=== PATIENT | male | born 1945 | race Caucasian/White ===

== ENCOUNTER 2017-05-22 23:58 | Inpatient (IN) | payer MEDICARE, OTHER ==
[2017-05-23] MEDS ORDERED: Furosemide 40 MG/4 ML VIAL IVPUSH ONE (00:19)
[2017-05-23 00:54] LABS: CHLORIDE,CL 102 mmol/L (101-111); SODIUM,NA 136 mmol/L (135-145)
--- NOTE | 2017-05-23 01:18 | EDM.PDOC ---
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 Has had some mild worsening over past few days per , tonight worsening after getting up out of lift chair. Has had similar episodes in past. No chest pain. Prior cardiac hx. Diabetic. BKA right. AICD/Pacer/ No recent cough, no fever, no nausea or vomiting. Onset: Sudden, Gradual - Related Data Allergies Allergy/AdvReac Type Severity Reaction Status Date / Time No Known Allergies Allergy Verified 01/15/15 15:36 Home Meds: Home Meds Aspirin [Low Dose Aspirin EC] 81 mg PO DAILY 03/12/14 [History] Carvedilol 6.25 mg PO BIDMEALS 03/12/14 [History] Cyanocobalamin (Vitamin B-12) [Vitamin B-12] 2,500 mcg SL DAILY 03/12/14 [ History] Finasteride 5 mg PO DAILY 03/12/14 [History] Lisinopril [Prinivil] 20 mg PO DAILY 03/12/14 [History] Tamsulosin HCl 0.4 mg PO DAILY 03/12/14 [History] Ferrous Sulfate [Iron] 325 mg PO DAILY 06/16/14 [History] atorvaSTATin [Lipitor] 10 mg PO DAILY 06/16/14 [History] Docusate Sodium [Colace] 100 mg PO BID PRN 02/21/15 [History] Sennosides/Docusate Sodium [Senokot-S Tablet] 2 tab PO BID 02/21/15 [History] traMADol [Ultram] 50 mg PO Q6H PRN #30 tablet 03/16/15 [Rx] metFORMIN [Glucophage] 1,000 mg PO BIDMEALS 05/23/17 [History] Past Medical History Cardiovascular History: Reports: Heart Failure, Hypertension, Other (See Below) Other Cardiovascular History: Heart Attack Gastrointestinal History: Reports: Hiatal Hernia Genitourinary History: Reports: BPH, Renal Calculus Other Musculoskeletal History: right below the knee amputation Neurological History: Reports: CVA Endocrine/Metabolic History: Reports: Diabetes, Type II Social & Family History - Tobacco Use Smoking Status *Q: Never Smoker Years of Tobacco use: 25 Second Hand Smoke Exposure: No - Caffeine Use Caffeine Use: Reports: Soda - Alcohol Use Days Per Week of Alcohol Use: 0 - Recreational Drug Use Recreational Drug Use: No - Living Situation & Occupation Living situation: Reports: , with Spouse Occupation: Retired ED ROS GENERAL - Review of Systems Review Of Systems: See Below Constitutional: Denies: Fever, Chills, Weakness, Decreased Appetite HEENT: Reports: No Symptoms Respiratory: Reports: No Symptoms, Shortness of Breath, Wheezing. Denies: Cough , Sputum Cardiovascular: Reports: Dyspnea on Exertion, Edema. Denies: Chest Pain, Palpitations Endocrine: Reports: No Symptoms GI/Abdominal: Reports: No Symptoms. Denies: Difficulty Swallowing : Reports: No Symptoms Musculoskeletal: Reports: Other (right bka ) Skin: Reports: No Symptoms ED EXAM, GENERAL - Physical Exam Exam: See Below Exam Limited By: No Limitations General Appearance: Alert, Mild Distress Eye Exam: Bilateral Eye: EOMI Ears: Normal External Exam Nose: Normal Inspection Throat/Mouth: Normal Inspection Head: Atraumatic Neck: Full Range of Motion Respiratory/Chest: Rhonchi, Wheezing (through out) Cardiovascular: Normal Peripheral Pulses, Regular Rate, Rhythm. No: No Edema (3 +left lower) GI/Abdominal: Normal Bowel Sounds Back Exam: Normal Inspection Neurological: Alert, Oriented, Normal Cognition Psychiatric: Normal Affect Skin Exam: Warm, Dry, Pallor. No: Normal Color Course - Vital Signs Last Recorded V/S: Last Vital Signs Temp 97.6 F 05/23/17 00:22 Pulse 74 05/23/17 00:22 Resp 23 H 05/23/17 00:22 BP 146/86 H 05/23/17 00:22 Pulse Ox 100 05/23/17 00:22 - Orders/Labs/Meds Orders: Active Orders 24 hr Category Date Time Status EKG 12 Lead [EKG Documentation Completion] [RC] URGENT Care 05/23/17 01:20 Active CULTURE BLOOD [BC] Stat Lab 05/23/17 00:20 Received CULTURE BLOOD [BC] Stat Lab 05/23/17 00:25 Received Blood Culture x2 Reflex Set [OM.PC] Stat Oth 05/23/17 00:56 Ordered Labs: Laboratory Tests 05/23/17 05/23/17 05/23/17 Range/Units 00:20 00:20 00:20 WBC 8.1 (5.0-10.0) 10^3/uL RBC 4.20 L (4.6-6.2) 10^6/uL Hgb 11.2 L (14.0-18.0) g/dL Hct 35.4 L (40.0-54.0) % MCV 84.3 D (80-100) fL MCH 26.7 L (27.0-34.0) pg MCHC 31.6 L (33.0-35.0) g/dL Plt Count 174 (150-450) 10^3/uL Neut % (Auto) 71.3 (42.2-75.2) % Lymph % (Auto) 17.2 L (20.5-50.1) % Parke % (Auto) 9.0 H (2-8) % Eos % (Auto) 2.1 (1.0-3.0) % Baso % (Auto) 0.4 (0.0-1.0) % PT 22.5 H (9.0-12.0) SEC INR 2.2 H (0.9-1.2) Sodium 136 (135-145) mmol/L Potassium 4.6 (3.6-5.0) mmol/L Chloride 102 (101-111) mmol/L Carbon Dioxide 27.0 (21.0-31.0) mmol/L Anion Gap 11.6 BUN 17 (7-18) mg/dL Creatinine 1.1 (0.6-1.3) mg/dL Est Cr Clr Drug Dosing 59.81 mL/min Estimated GFR (MDRD) > 60 BUN/Creatinine Ratio 15.45 Glucose 175 H (74-105) mg/dL Lactic Acid (0.5-2.2) mmol/L Calcium 8.3 L (8.4-10.2) mg/dl Total Bilirubin 0.7 (0.2-1.0) mg/dL AST 21 (10-42) IU/L ALT 17 (10-60) IU/L Alkaline Phosphatase 64 (42-121) IU/L Troponin I 0.03 H* (0.00-0.02) ng/ml B-Natriuretic Peptide 1160 H (0-100) pg/ml Total Protein 7.0 (6.7-8.2) g/dl Albumin 3.3 (3.2-5.5) g/dl Globulin 3.7 Albumin/Globulin Ratio 0.89 Amylase 64 (28-100) U/L Lipase 23 (22-51) U/L 05/23/17 Range/Units 00:20 WBC (5.0-10.0) 10^3/uL RBC (4.6-6.2) 10^6/uL Hgb (14.0-18.0) g/dL Hct (40.0-54.0) % MCV (80-100) fL MCH (27.0-34.0) pg MCHC (33.0-35.0) g/dL Plt Count (150-450) 10^3/uL Neut % (Auto) (42.2-75.2) % Lymph % (Auto) (20.5-50.1) % Parke % (Auto) (2-8) % Eos % (Auto) (1.0-3.0) % Baso % (Auto) (0.0-1.0) % PT (9.0-12.0) SEC INR (0.9-1.2) Sodium (135-145) mmol/L Potassium (3.6-5.0) mmol/L Chloride (101-111) mmol/L Carbon Dioxide (21.0-31.0) mmol/L Anion Gap BUN (7-18) mg/dL Creatinine (0.6-1.3) mg/dL Est Cr Clr Drug Dosing mL/min Estimated GFR (MDRD) BUN/Creatinine Ratio Glucose (74-105) mg/dL Lactic Acid 1.8 (0.5-2.2) mmol/L Calcium (8.4-10.2) mg/dl Total Bilirubin (0.2-1.0) mg/dL AST (10-42) IU/L ALT (10-60) IU/L Alkaline Phosphatase (42-121) IU/L Troponin I (0.00-0.02) ng/ml B-Natriuretic Peptide (0-100) pg/ml Total Protein (6.7-8.2) g/dl Albumin (3.2-5.5) g/dl Globulin Albumin/Globulin Ratio Amylase (28-100) U/L Lipase (22-51) U/L Meds: Medications Discontinued Medications Generic Name Dose Route Start Last Admin Trade Name Jam PRN Reason Stop Dose Admin Furosemide 40 mg 05/23/17 00:19 05/23/17 00:42 Lasix IVPUSH 05/23/17 00:20 40 mg NOW ONE Administration - Radiology Interpretation Free Text/Narrative:: CXR linear and hazy opacitites seen in the lower hemithoraces bilaterally could represent bilateral infiltrates or atelectasis although mild acute pulmonary edema could have this appearance. - Re-Assessments/Exams Free Text/Narrative Re-Assessment/Exam: 05/23/17 01:51 Responding to IV lasix. Breathig easier. lung sounds clearing. Wheeze resolved. Voided x 2. Dr. Yang accepting patient for further management. Tx to nursing unit. Departure - Departure Time of Disposition: 01:54 Disposition: Admitted As Inpatient 64 Condition: Good Clinical Impression: CHF, Congestive heart failure, Chronic anticoagulation Diabetes Qualifiers: Diabetes mellitus type: type 2 Diabetes mellitus complication status: with circulatory complication Diabetes mellitus complication detail: with peripheral angiopathy with gangrene Diabetes mellitus prison insulin use: unspecified prison insulin use status Qualified Code(s): E11.52 - Type 2 diabetes mellitus with diabetic peripheral angiopathy with gangrene Hx of BKA Qualifiers: Laterality: right Qualified Code(s): Z89.511 - Acquired absence of right leg below knee - Discharge Information Forms: ED Department Discharge - My Orders Last 24 Hours: My Active Orders 05/23/17 00:20 CULTURE BLOOD [BC] Stat 05/23/17 00:25 CULTURE BLOOD [BC] Stat 05/23/17 00:56 Blood Culture x2 Reflex Set [OM.PC] Stat 05/23/17 01:20 EKG 12 Lead [EKG Documentation Completion] [RC] URGENT - Assessment/Plan Last 24 Hours: My Active Orders 05/23/17 00:20 CULTURE BLOOD [BC] Stat 05/23/17 00:25 CULTURE BLOOD [BC] Stat 05/23/17 00:56 Blood Culture x2 Reflex Set [OM.PC] Stat 05/23/17 01:20 EKG 12 Lead [EKG Documentation Completion] [RC] URGENT
[2017-05-23] MEDS ORDERED: Acetaminophen 325 MG Tab PO PRN (02:19)
--- NOTE | 2017-05-23 02:37 | PCM.HP ---
H&P History of Present Illness - General Date of Service: 05/23/17 Admit Problem/Dx: Admission Diagnosis/Problem Admission Diagnosis/Problem Shortness of breath Source of Information: Patient History Limitations: Reports: No Limitations - History of Present Illness Initial Comments - Free Text/Narative: Patient is 71 y/o male with PMH including CHF, AICD/Pacer, DM-II, right BKA pesents to the ED this AM with sudden onset of SOB. Was well last night before going to bed. Denies cough, fever, chills. No leg swelling, orthopnea, PND, chest pain, palpitations. No nausea, vomiting or abdominal pain. SOB was associated with wheezing. In the ED his BNP was elevated. SOB and wheezing improved following IV lasix Onset of Symptoms: Reports: Today, Sudden Duration of Symptoms: Reports: Hour(s): Location: Reports: Chest Improves with: Reports: None Worsens with: Reports: Movement Associated Symptoms: Reports: Shortness of Breath - Related Data Allergies/Adverse Reactions: Allergies Allergy/AdvReac Type Severity Reaction Status Date / Time No Known Allergies Allergy Verified 05/23/17 02:04 Home Medications: Home Meds Aspirin [Low Dose Aspirin EC] 81 mg PO DAILY 03/12/14 [History] Carvedilol 12 mg PO BIDMEALS 03/12/14 [History] Cyanocobalamin (Vitamin B-12) [Vitamin B-12] 2,500 mcg SL DAILY 03/12/14 [ History] Finasteride 5 mg PO DAILY 03/12/14 [History] Lisinopril [Prinivil] 20 mg PO DAILY 03/12/14 [History] Tamsulosin HCl 0.4 mg PO BEDTIME 03/12/14 [History] atorvaSTATin [Lipitor] 10 mg PO BEDTIME 06/16/14 [History] Warfarin [Coumadin] 5 mg PO Q48H 05/23/17 [History] Warfarin [Coumadin] 7.5 mg PO Q48H 05/23/17 [History] metFORMIN [Glucophage] 1,000 mg PO BIDMEALS 05/23/17 [History] Past Medical History HEENT History: Reports: Cataract Cardiovascular History: Reports: Heart Failure, High Cholesterol, Hypertension, Other (See Below) Other Cardiovascular History: Heart Attack Gastrointestinal History: Reports: Hiatal Hernia Genitourinary History: Reports: BPH, Renal Calculus Other Musculoskeletal History: right below the knee amputation Neurological History: Reports: CVA Endocrine/Metabolic History: Reports: Diabetes, Type II - Past Surgical History HEENT Surgical History: Reports: Cataract Surgery GI Surgical History: Reports: Appendectomy Social & Family History - Family History Family Medical History: Unobtainable - Tobacco Use Smoking Status *Q: Never Smoker Years of Tobacco use: 25 Second Hand Smoke Exposure: No - Caffeine Use Caffeine Use: Reports: Soda - Alcohol Use Days Per Week of Alcohol Use: 0 - Recreational Drug Use Recreational Drug Use: No - Living Situation & Occupation Living situation: Reports: , with Spouse Occupation: Retired H&P Review of Systems - Review of Systems: Review Of Systems: See Below General: Reports: No Symptoms HEENT: Reports: No Symptoms Pulmonary: Reports: No Symptoms Cardiovascular: Reports: No Symptoms Gastrointestinal: Reports: No Symptoms Genitourinary: Reports: No Symptoms Musculoskeletal: Reports: No Symptoms Skin: Reports: No Symptoms Psychiatric: Reports: No Symptoms Neurological: Reports: No Symptoms Hematologic/Lymphatic: Reports: No Symptoms Immunologic: Reports: No Symptoms Exam - Exam Exam: See Below - Vital Signs Vital Signs: Last Vital Signs Temp 97.6 F 05/23/17 00:22 Pulse 74 05/23/17 00:22 Resp 23 H 05/23/17 00:22 BP 146/86 H 05/23/17 00:22 Pulse Ox 100 05/23/17 00:22 Weight: 210 lb - Exam Quality Assessment: Supplemental Oxygen General: Alert, Oriented, Cooperative, Mild Distress HEENT: PERRLA, Hearing Intact, Mucosa Moist & [place], Nares Patent, Normal Nasal Septum, Posterior Pharynx Clear, Conjunctiva Clear, EOMI, EACs Clear, TMs Clear Neck: Supple, Trachea Midline, 2 Lungs: Clear to Auscultation, Normal Respiratory Effort Cardiovascular: Regular Rate, Regular Rhythm GI/Abdominal Exam: Normal Bowel Sounds, Soft, Non-Tender, No Organomegaly, No Distention, No Abnormal Bruit, No Mass, Pelvis Stable (Male) Exam: No Hernia, Normal Inspection, Normal Prostate, Circumcised Rectal (Males) Exam: Normal Exam, Normal Rectal Tone, Prostate Normal Back Exam: Normal Inspection, Full Range of Motion, NT Extremities: Normal Inspection, Normal Range of Motion, Non-Tender, No Pedal Edema, Normal Capillary Refill Skin: Warm, Dry, Intact Neurological: Cranial Nerves Intact, Reflexes Equal Bilateral Neuro Extensive - Mental Status: Alert, Oriented x3, Normal Mood/Affect, Normal Cognition Neuro Extensive - Motor, Sensory, Reflexes: CN II-XII Intact, Normal Gait, Normal Reflexes Psychiatric: Alert, Normal Affect, Normal Mood - Patient Data Result Diagrams: 05/23/17 00:20 05/23/17 00:20 *Q Meaningful Use (ADM) - VTE *Q VTE Criteria *Q: - Stroke *Q Stroke Criteria *Q: - AMI *Q AMI Criteria *Q: - Problem List (1) SOB (shortness of breath) SNOMED Code(s): 236437833 ICD Code: R06.02 - SHORTNESS OF BREATH Status: Acute Current Visit: Yes (2) CHF, Congestive heart failure SNOMED Code(s): 13019394 ICD Code: I50.9 - HEART FAILURE, UNSPECIFIED Status: Acute Current Visit : Yes (3) Hx of BKA Status: Acute Current Visit: Yes Qualifiers: Laterality: right Qualified Code(s): Z89.511 - Acquired absence of right leg below knee (4) Chronic anticoagulation SNOMED Code(s): 840332112 ICD Code: Z79.01 - SODA DIALYZER (CURRENT) USE OF ANTICOAGULANTS Status: Chronic Current Visit: Yes (5) Diabetes SNOMED Code(s): 35745196 ICD Code: E11.9 - TYPE 2 DIABETES MELLITUS WITHOUT COMPLICATIONS Status: Chronic Priority: High Current Visit: Yes Qualifiers: Diabetes mellitus type: type 2 Diabetes mellitus complication status: with circulatory complication Diabetes mellitus complication detail: with peripheral angiopathy with gangrene Diabetes mellitus long-term insulin use: unspecified long-term insulin use status Qualified Code(s): E11.52 - Type 2 diabetes mellitus with diabetic peripheral angiopathy with gangrene Problem List Initiated/Reviewed/Updated: Yes Orders Last 24hrs: Active Orders 24 hr Category Date Time Status Patient Status [ADT] Routine ADT 05/23/17 02:20 Ordered Antiembolic Devices [RC] .Routine Care 05/23/17 02:25 Ordered Intake and Output [RC] QSHIFT Care 05/23/17 02:22 Ordered Oxygen Therapy [RC] CONTINUOUS Care 05/23/17 02:22 Ordered Pulse Oximetry [RC] CONTINUOUS Care 05/23/17 02:22 Ordered VTE/DVT Education [RC] PER UNIT ROUTINE Care 05/23/17 02:25 Ordered Vital Signs [RC] Q4H Care 05/23/17 02:20 Ordered 2 Gram Sodium Diet [DIET] Diet 05/23/17 Breakfast Ordered Acetaminophen [Tylenol] Med 05/23/17 02:19 Ordered 650 mg PO Q4H PRN Aspirin [Halfprin] Med 05/23/17 09:00 Ordered 81 mg PO DAILY Carvedilol [Coreg] Med 05/23/17 08:00 Ordered 12 mg PO BIDMEALS Cyanocobalamin (Vitamin B-12) [Vitamin B-12] Med 05/23/17 09:00 Ordered 2,500 mcg SL DAILY Finasteride [Proscar] Med 05/23/17 09:00 Ordered 5 mg PO DAILY Lisinopril [Prinivil] Med 05/23/17 09:00 Ordered 20 mg PO DAILY Tamsulosin [Flomax] Med 05/23/17 21:00 Ordered 0.4 mg PO BEDTIME atorvaSTATin [Lipitor] Med 05/23/17 21:00 Ordered 10 mg PO BEDTIME metFORMIN [Glucophage] Med 05/23/17 08:00 Ordered 1,000 mg PO BIDMEALS DVT/VTE Prophylaxis Reflex [OM.PC] Routine Oth 05/23/17 02:19 Ordered Resuscitation Status Routine Resus Stat 05/23/17 02:19 Ordered Assessment/Plan Comment:: # CHF exacerbation -IV lasix 40 bid -Daily weight -I/O -ECHO in the AM -Fluid restriction to 1.2 L a day -Continue Coreg and lisinopril. His BP able to tolerate -Supplemental oxygen prn #DM-II -Resume metformin -Monitor FSG 4x daily #Chronic anemia -Stable h/h -Monitor closely #BPH -Continue home meds #Diet -Cardiac #Code status -DNR
[2017-05-23] MEDS ORDERED: Sodium Chloride 0.9% 10 ML Syringe FLUSH PRN (03:00)
[2017-05-23] MEDS ORDERED: Carvedilol 6.25 MG Tab PO SCH (08:00)
[2017-05-23] MEDS: Aspirin 81 MG Tab.EC PO SCH (08:35)
[2017-05-23] MEDS: metFORMIN 500 MG Tab PO SCH ×2 (08:35→17:19)
[2017-05-23] MEDS: Carvedilol 6.25 MG Tab PO SCH ×2 (08:35→17:18)
[2017-05-23] MEDS: Finasteride 5 MG Tab PO SCH (08:36)
[2017-05-23] MEDS: Furosemide 40 MG/4 ML VIAL IVPUSH SCH ×2 (08:36→21:15)
[2017-05-23] MEDS: Lisinopril 20 MG Tab PO SCH (08:36)
[2017-05-23] MEDS ORDERED: [UNRECOGNIZED DRUG - OTHER] SL SCH (09:00)
[2017-05-23] MEDS ORDERED: CYANOCOBALAMIN 2500 MCG SL SCH (09:00)
--- NOTE | 2017-05-23 10:07 | PCM.PN ---
- General Info Date of Service: 05/23/17 Admission Dx/Problem (Free Text): Admission Diagnosis/Problem Admission Diagnosis/Problem Shortness of breath Subjective Update: The patient is a 71-year-old gentleman with a history of congestive heart failure and AICD, diabetes, right below knee amputation. He has been using home oxygen at night. The patient presented with sudden onset of shortness of breath was associated with wheezing. The patient was noted to have acute congestive heart failure exacerbation and admitted. He received a dose of Lasix in the emergency room after which a breathing has improved. Overnight he has improved. He is off oxygen now. He denies shortness of breath, chest pain. - Review of Systems General: Denies: Fever Pulmonary: Denies: Shortness of Breath Cardiovascular: Denies: Chest Pain Gastrointestinal: Denies: Abdominal Pain - Patient Data Vitals - Most Recent: Last Vital Signs Temp 37.2 C 05/23/17 09:27 Pulse 61 05/23/17 08:35 Resp 16 05/23/17 07:37 BP 141/70 H 05/23/17 08:36 Pulse Ox 95 05/23/17 07:37 Weight - Most Recent: 89.267 kg I&O - Last 24 Hours: Intake & Output 05/22/17 05/23/17 05/23/17 22:59 06:59 14:59 Output Total 250 Balance -250 Lab Results Last 24 Hours: Laboratory Results - last 24 hr 05/23/17 Range/Units 07:58 POC Glucose 138 H (83-110) mg/dl Med Orders - Current: Current Medications Acetaminophen (Tylenol) 650 mg PO Q4H PRN PRN Reason: Pain (mild 1-3 )/fever Aspirin (Halfprin) 81 mg PO DAILY [facility] Last Admin: 05/23/17 08:35 Dose: 81 mg Atorvastatin Calcium (Lipitor) 10 mg PO BEDTIME [facility] Carvedilol (Coreg) 12.5 mg PO BIDMEALS [facility] Last Admin: 05/23/17 08:35 Dose: 12.5 mg Finasteride (Proscar) 5 mg PO DAILY [facility] Last Admin: 05/23/17 08:36 Dose: 5 mg Furosemide (Lasix) 40 mg IVPUSH BID [facility] Last Admin: 05/23/17 08:36 Dose: 40 mg Lisinopril (Prinivil) 20 mg PO DAILY [facility] Last Admin: 05/23/17 08:36 Dose: 20 mg Metformin HCl (Glucophage) 1,000 mg PO BIDMEALS [facility] Last Admin: 05/23/17 08:35 Dose: 1,000 mg Non-Formulary Medication (Cyanocobalamin (Vitamin B-12) [Vitamin B-12]) 2,500 mcg SL DAILY [facility] Sodium Chloride (Saline Flush) 10 ml FLUSH ASDIRECTED PRN PRN Reason: Keep Vein Open Tamsulosin HCl (Flomax) 0.4 mg PO BEDTIME [facility] Warfarin Sodium (Pharmacy To Dose - Warfarin) 1 dose .XX ASDIRECTED [facility] Warfarin Sodium (Coumadin) 7.5 mg PO ONETIME ONE Stop: 05/23/17 14:01 Discontinued Medications Carvedilol (Coreg) 12 mg PO BIDMEALS [facility] Furosemide (Lasix) 40 mg IVPUSH NOW ONE Stop: 05/23/17 00:20 Last Admin: 05/23/17 00:42 Dose: 40 mg - Exam Quality Assessment: No: Supplemental Oxygen General: Alert, Oriented Neck: Supple Lungs: Clear to Auscultation, Normal Respiratory Effort. No: Rhonchi, Wheezing GI/Abdominal Exam: Normal Bowel Sounds, Soft, Non-Tender Extremities: No Pedal Edema, Other (Right-sided amputation) - Problem List & Annotations (1) CHF, Congestive heart failure SNOMED Code(s): 41945482 Code(s): I50.9 - HEART FAILURE, UNSPECIFIED Status: Acute Current Visit: Yes (2) SOB (shortness of breath) SNOMED Code(s): 205108676 Code(s): R06.02 - SHORTNESS OF BREATH Status: Acute Current Visit: Yes (3) Diabetes SNOMED Code(s): 99565424 Code(s): E11.9 - TYPE 2 DIABETES MELLITUS WITHOUT COMPLICATIONS Status: Chronic Priority: High Current Visit: Yes Qualifiers: Diabetes mellitus type: type 2 Diabetes mellitus complication status: with circulatory complication Diabetes mellitus complication detail: with peripheral angiopathy with gangrene Diabetes mellitus intermediate project manager insulin use: unspecified intermediate project manager insulin use status Qualified Code(s): E11.52 - Type 2 diabetes mellitus with diabetic peripheral angiopathy with gangrene - Problem List Review Problem List Initiated/Reviewed/Updated: Yes - Plan Plan:: # CHF exacerbation Improved Continue with IV lasix -Daily weight -I/O -Continue Coreg and lisinopril. Follow blood pressure -Supplemental oxygen prn #DM-II -Resume metformin -Monitor FSG 4x daily #Chronic anemia -Stable h/h -Monitor closely #BPH -Continue home meds #Diet -Cardiac #Code status -DNR Discussed with and at bedside
[2017-05-23] MEDS ORDERED: Warfarin 2.5 MG Tab PO ONE (14:00)
[2017-05-23] MEDS ORDERED: atorvaSTATin 10 MG Tab PO SCH (21:00)
[2017-05-23] MEDS ORDERED: Tamsulosin 0.4 MG Cap.ER PO SCH (21:00)
[2017-05-24 07:35] VITALS: BP 139/62
[2017-05-24] MEDS: Lisinopril 20 MG Tab PO SCH (08:24)
[2017-05-24] MEDS: metFORMIN 500 MG Tab PO SCH (08:24)
[2017-05-24] MEDS: Finasteride 5 MG Tab PO SCH (08:24)
[2017-05-24] MEDS: Aspirin 81 MG Tab.EC PO SCH (08:24)
[2017-05-24] MEDS: Carvedilol 6.25 MG Tab PO SCH (08:25)
[2017-05-24] MEDS: Furosemide 40 MG/4 ML VIAL IVPUSH SCH (08:27)
--- NOTE | 2017-05-24 10:26 | PCM.DCSUM1 ---
Discharge Summary - Hospital Course Free Text/Narrative:: The patient is a 71-year-old gentleman with a history of diabetes, coronary artery disease, congestive heart failure. Presented with increasing weight, lower extremity edema, shortness of breath. # Acute CHF exacerbation due to systolic dysfunction Improved with IV lasix The patient used to be on diuretics but then was developing orthostatic hypotension and near syncope. He will be following his Daily weight And if the weight is going up he will Take Lasix prn -Continue Coreg and lisinopril. #DM-II -Resume metformin #Chronic anemia -Stable h/h -Monitor as out pt - Discharge Data Discharge Date: 05/24/17 Discharge Disposition: Home, Self-Care 01 Condition: Good - Discharge Diagnosis/Problem(s) (1) CHF, Congestive heart failure SNOMED Code(s): 42047355 ICD Code: I50.9 - HEART FAILURE, UNSPECIFIED Status: Acute Current Visit : Yes (2) SOB (shortness of breath) SNOMED Code(s): 240132914 ICD Code: R06.02 - SHORTNESS OF BREATH Status: Acute Current Visit: Yes (3) Diabetes SNOMED Code(s): 17440541 ICD Code: E11.9 - TYPE 2 DIABETES MELLITUS WITHOUT COMPLICATIONS Status: Chronic Priority: High Current Visit: Yes Qualifiers: Diabetes mellitus type: type 2 Diabetes mellitus complication status: with circulatory complication Diabetes mellitus complication detail: with peripheral angiopathy with gangrene Diabetes mellitus penitentiary insulin use: unspecified predatory animal exterminator insulin use status Qualified Code(s): E11.52 - Type 2 diabetes mellitus with diabetic peripheral angiopathy with gangrene - Patient Instructions Diet: Heart Healthy Diet Activity: As Tolerated - Discharge Plan Prescriptions/Med Rec: Furosemide [Lasix] 20 mg PO DAILY PRN #30 tablet PRN Reason: weight is up by 3# in 3 days Home Medications: Home Meds Aspirin [Low Dose Aspirin EC] 81 mg PO DAILY 03/12/14 [History] Carvedilol 12.5 mg PO BIDMEALS 03/12/14 [History] Cyanocobalamin (Vitamin B-12) [Vitamin B-12] 2,500 mcg SL DAILY 03/12/14 [ History] Finasteride 5 mg PO DAILY 03/12/14 [History] Lisinopril [Prinivil] 20 mg PO DAILY 03/12/14 [History] Tamsulosin HCl 0.4 mg PO BEDTIME 03/12/14 [History] atorvaSTATin [Lipitor] 10 mg PO BEDTIME 06/16/14 [History] Warfarin [Coumadin] 5 mg PO Q48H 05/23/17 [History] Warfarin [Coumadin] 7.5 mg PO Q48H 05/23/17 [History] metFORMIN [Glucophage] 1,000 mg PO BIDMEALS 05/23/17 [History] Furosemide [Lasix] 20 mg PO DAILY PRN #30 tablet 05/24/17 [Rx] Patient Handouts: Furosemide tablets, Heart Failure, [id number] Referrals: PCP,Unobtain [Ordering Only Provider] - (dr. Rasmussen in 2-3 days) - Discharge Summary/Plan Comment DC Time >30 min.: No - General Info Date of Service: 05/24/17 Admission Dx/Problem (Free Text: Admission Diagnosis/Problem Admission Diagnosis/Problem Shortness of breath - Review of Systems General: Denies: Fever, Weakness Pulmonary: Denies: Shortness of Breath Cardiovascular: Denies: Chest Pain, Edema (Resolved) Neurological: Denies: Confusion - Patient Data Vitals - Most Recent: Last Vital Signs Temp 36.8 C 05/24/17 07:31 Pulse 68 05/24/17 08:25 Resp 20 05/24/17 07:31 BP 139/62 05/24/17 08:25 Pulse Ox 95 05/24/17 07:31 Weight - Most Recent: 85.82 kg I&O - Last 24 hours: Intake & Output 05/23/17 05/24/17 05/24/17 22:59 06:59 14:59 Intake Total 450 50 Output Total 500 1350 Balance -50 -1300 Lab Results - Last 24 hrs: Laboratory Results - last 24 hr 05/23/17 05/24/17 05/24/17 Range/Units 17:01 05:35 05:35 WBC 8.3 (5.0-10.0) 10^3/uL RBC 4.13 L (4.6-6.2) 10^6/uL Hgb 11.0 L (14.0-18.0) g/dL Hct 34.8 L (40.0-54.0) % MCV 84.3 (80-100) fL MCH 26.6 L (27.0-34.0) pg MCHC 31.6 L (33.0-35.0) g/dL Plt Count 155 (150-450) 10^3/uL Neut % (Auto) 75.4 H (42.2-75.2) % Lymph % (Auto) 14.3 L (20.5-50.1) % Curry % (Auto) 8.8 H (2-8) % Eos % (Auto) 1.3 (1.0-3.0) % Baso % (Auto) 0.2 (0.0-1.0) % PT 19.4 H (9.0-12.0) SEC INR 1.9 H (0.9-1.2) Sodium (135-145) mmol/L Potassium (3.6-5.0) mmol/L Chloride (101-111) mmol/L Carbon Dioxide (21.0-31.0) mmol/L Anion Gap BUN (7-18) mg/dL Creatinine (0.6-1.3) mg/dL Est Cr Clr Drug Dosing mL/min Estimated GFR (MDRD) Glucose (74-105) mg/dL POC Glucose 206 H (83-110) mg/dl Calcium (8.4-10.2) mg/dl B-Natriuretic Peptide (0-100) pg/ml 18 05/24/17 Range/Units 05:35 07:42 WBC (5.0-10.0) 10^3/uL RBC (4.6-6.2) 10^6/uL Hgb (14.0-18.0) g/dL Hct (40.0-54.0) % MCV (80-100) fL MCH (27.0-34.0) pg MCHC (33.0-35.0) g/dL Plt Count (150-450) 10^3/uL Neut % (Auto) (42.2-75.2) % Lymph % (Auto) (20.5-50.1) % Curry % (Auto) (2-8) % Eos % (Auto) (1.0-3.0) % Baso % (Auto) (0.0-1.0) % PT (9.0-12.0) SEC INR (0.9-1.2) Sodium 138 (135-145) mmol/L Potassium 4.2 (3.6-5.0) mmol/L Chloride 100 L (101-111) mmol/L Carbon Dioxide 31.0 (21.0-31.0) mmol/L Anion Gap 11.2 BUN 21 H (7-18) mg/dL Creatinine 1.3 (0.6-1.3) mg/dL Est Cr Clr Drug Dosing 50.61 mL/min Estimated GFR (MDRD) 54 Glucose 134 H (74-105) mg/dL POC Glucose 136 H (83-110) mg/dl Calcium 8.8 (8.4-10.2) mg/dl B-Natriuretic Peptide 828 H (0-100) pg/ml Med Orders - Current: Current Medications Acetaminophen (Tylenol) 650 mg PO Q4H PRN PRN Reason: Pain (mild 1-3 )/fever Aspirin (Halfprin) 81 mg PO DAILY [facility] Last Admin: 05/24/17 08:24 Dose: 81 mg Atorvastatin Calcium (Lipitor) 10 mg PO BEDTIME [facility] Last Admin: 05/23/17 21:15 Dose: 10 mg Carvedilol (Coreg) 12.5 mg PO BIDMEALS [facility] Last Admin: 05/24/17 08:25 Dose: 12.5 mg Finasteride (Proscar) 5 mg PO DAILY [facility] Last Admin: 05/24/17 08:24 Dose: 5 mg Furosemide (Lasix) 40 mg IVPUSH BID [facility] Last Admin: 05/24/17 08:27 Dose: 40 mg Lisinopril (Prinivil) 20 mg PO DAILY [facility] Last Admin: 05/24/17 08:24 Dose: 20 mg Metformin HCl (Glucophage) 1,000 mg PO BIDMEALS [facility] Last Admin: 05/24/17 08:24 Dose: 1,000 mg Sodium Chloride (Saline Flush) 10 ml FLUSH ASDIRECTED PRN PRN Reason: Keep Vein Open Last Admin: 05/23/17 21:14 Dose: 10 ml Tamsulosin HCl (Flomax) 0.4 mg PO BEDTIME [facility] Last Admin: 05/23/17 21:15 Dose: 0.4 mg Warfarin Sodium (Pharmacy To Dose - Warfarin) 1 dose .XX ASDIRECTED [facility] Warfarin Sodium (Coumadin) 7.5 mg PO ONETIME ONE Stop: 05/24/17 14:01 Discontinued Medications Carvedilol (Coreg) 12 mg PO BIDMEALS [facility] Furosemide (Lasix) 40 mg IVPUSH NOW ONE Stop: 05/23/17 00:20 Last Admin: 05/23/17 00:42 Dose: 40 mg Non-Formulary Medication (Cyanocobalamin (Vitamin B-12) [Vitamin B-12]) 2,500 mcg SL DAILY [facility] Last Admin: 05/23/17 11:40 Dose: Not Given Warfarin Sodium (Coumadin) 7.5 mg PO ONETIME ONE Stop: 05/23/17 14:01 Last Admin: 05/23/17 14:21 Dose: 7.5 mg - Exam General: Reports: Alert, Oriented Neck: Reports: Supple Lungs: Reports: Clear to Auscultation, Normal Respiratory Effort GI/Abdominal Exam: Normal Bowel Sounds, Soft, Non-Tender Extremities: No Pedal Edema, Other (Amputation) *Q Meaningful Use (DIS) - VTE *Q VTE Criteria *Q: - Stroke *Q Stroke Criteria *Q: - AMI *Q AMI Criteria *Q:
[2017-05-24] MEDS ORDERED: Warfarin 2.5 MG Tab PO ONE (14:00)
--- NOTE | 2017-05-26 15:08 | EKG ---
05/23/2017 - FARHANA WRIGHT - FINDINGS: This 12-lead EKG shows a sinus rhythm with occasional PVCs. Ventricular rate of 67. Normal axis. There is a non-specific intraventricular conduction delay. There are borderline ST-segment depressions in the anterolateral leads. There are no acute ST-T wave changes. [facility] [place] /[id number] [facility]
== END 2017-05-24 11:35 | disposition home or self-care (01) | DRG 293 ==
LOC: DL.ED 23:58 → DL.MS 05-23 01:51 → UNDOADMIN 05-23 01:51 → DL.MS 05-23 02:20
PROVIDERS: ADMIT Student in an Organized Health Care Education/Training Program; ATTEND Student in an Organized Health Care Education/Training Program
DX: I11.0 Hypertensive heart disease with heart failure (principal); I50.9 Heart failure, unspecified; I50.23 Acute on chronic systolic (congestive) heart failure; E11.52 Type 2 diabetes mellitus with diabetic peripheral angiopathy with gangrene; I25.10 Atherosclerotic heart disease of native coronary artery without angina pectoris; E11.9 Type 2 diabetes mellitus without complications; D64.9 Anemia, unspecified; N40.0 Benign prostatic hyperplasia without lower urinary tract symptoms; I25.2 Old myocardial infarction; E78.00 Pure hypercholesterolemia, unspecified; Z95.810 Presence of automatic (implantable) cardiac defibrillator; K44.9 Diaphragmatic hernia without obstruction or gangrene; Z89.511 Acquired absence of right leg below knee; Z86.73 Personal history of transient ischemic attack (TIA), and cerebral infarction without residual deficits; Z87.891 Personal history of nicotine dependence; Z66 Do not resuscitate; Z79.01 Long term (current) use of anticoagulants; Z79.84 Long term (current) use of oral hypoglycemic drugs; Z79.82 Long term (current) use of aspirin; Z79.899 Other long term (current) drug therapy
CPT/HCPCS: 36415; 71045; 80053; 81001; 82150; 83605; 83690; 83880; 84484; 85025; 85610; 87040 ×2; 93005; 93010; 96374; 99285; J1940; 80048; 82962; A9270-GY; J7050

== ENCOUNTER 2017-06-14 11:41 | Inpatient (IN) | payer MEDICARE, OTHER ==
[2017-06-14] MEDS ORDERED: Furosemide 40 MG/4 ML VIAL IVPUSH ONE (12:22)
[2017-06-14 12:27] LABS: ANION GAP 11.1; CHLORIDE,CL 102 mmol/L (101-111); SODIUM,NA 134 mmol/L (135-145)
--- NOTE | 2017-06-14 12:29 | EDM.PDOC ---
ED HPI GENERAL MEDICAL PROBLEM - General Chief Complaint: Cardiovascular Problem Stated Complaint: RETAINING FLUIDS, [id number] Time Seen by Provider: 06/14/17 12:15 Source of Information: Reports: Patient History Limitations: Reports: No Limitations - History of Present Illness INITIAL COMMENTS - FREE TEXT/NARRATIVE: This 71 yo male patient reports to the ED due to increased fluid retention. The patient reports he has noticed increased shortness of breath over the past 2 days. The patient reports he was seen by his invoicing specialist yesterday and was advised to increase his oral lasix. The patient reports the invoicing specialist stopped his Lisonopril yesterday and was going to start him on another medication in a couple of days. The patient reports he was in the hospital about 1 week ago for exacerbation of CHF and retained fluids. The patient reports he did take 2 tablets of Lasix this morning at home, but did not have to urinate much. Onset: Gradual Onset Date: 06/12/17 Duration: Constant, Getting Worse Location: Reports: Chest, Generalized Quality: Reports: Dull, Pressure Severity: Moderate Improves with: Reports: None Worsens with: Reports: None Associated Symptoms: Reports: Shortness of Breath - Related Data Allergies Allergy/AdvReac Type Severity Reaction Status Date / Time No Known Allergies Allergy Verified 05/23/17 02:04 Home Meds: Home Meds Aspirin [Low Dose Aspirin EC] 81 mg PO DAILY 03/12/14 [History] Carvedilol 12.5 mg PO BIDMEALS 03/12/14 [History] Cyanocobalamin (Vitamin B-12) [Vitamin B-12] 2,500 mcg SL DAILY 03/12/14 [ History] Finasteride 5 mg PO DAILY 03/12/14 [History] Tamsulosin HCl 0.4 mg PO BEDTIME 03/12/14 [History] atorvaSTATin [Lipitor] 10 mg PO BEDTIME 06/16/14 [History] Warfarin [Coumadin] 5 mg PO DAILY 05/23/17 [History] metFORMIN [Glucophage] 1,000 mg PO BIDMEALS 05/23/17 [History] Furosemide [Lasix] 20 mg PO DAILY PRN #30 tablet 05/24/17 [Rx] Past Medical History HEENT History: Reports: Cataract, Impaired Vision Cardiovascular History: Reports: Heart Failure, High Cholesterol, Hypertension, Pacemaker, Other (See Below) Other Cardiovascular History: Heart Attack Gastrointestinal History: Reports: Hiatal Hernia Genitourinary History: Reports: BPH, Renal Calculus Other Musculoskeletal History: right below the knee amputation Neurological History: Reports: CVA Endocrine/Metabolic History: Reports: Diabetes, Type II - Past Surgical History HEENT Surgical History: Reports: Adenoidectomy, Cataract Surgery, Tonsillectomy GI Surgical History: Reports: Appendectomy Musculoskeletal Surgical History: Reports: Amputation Social & Family History - Family History Family Medical History: Unobtainable - Tobacco Use Smoking Status *Q: Never Smoker Years of Tobacco use: 25 Second Hand Smoke Exposure: No - Caffeine Use Caffeine Use: Reports: None - Alcohol Use Days Per Week of Alcohol Use: 0 - Recreational Drug Use Recreational Drug Use: No - Living Situation & Occupation Living situation: Reports: , with Spouse Occupation: Retired ED ROS GENERAL - Review of Systems Review Of Systems: ROS reveals no pertinent complaints other than HPI. ED EXAM, GENERAL - Physical Exam Exam: See Below Exam Limited By: No Limitations General Appearance: Alert, WD/WN, Moderate Distress Eye Exam: Right Eye: Other (The patient reports very blurred vision from the right eye which seems to have gotten worse over the past 2 days. ), Bilateral Eye: EOMI, Normal Inspection, PERRL Ears: Normal External Exam, Normal Canal, Hearing Grossly Normal, Normal TMs Nose: Normal Inspection, Normal Mucosa, No Blood Throat/Mouth: Normal Inspection, Normal Lips, Normal Teeth, Normal Gums, Normal Oropharynx, Normal Voice, No Airway Compromise Head: Atraumatic, Normocephalic Respiratory/Chest: No Respiratory Distress, Lungs Clear, Normal Breath Sounds, No Accessory Muscle Use, Chest Non-Tender Cardiovascular: Normal Peripheral Pulses, Regular Rate, Rhythm, No Gallop, No JVD, No Murmur, No Rub GI/Abdominal: Normal Bowel Sounds, Soft, Non-Tender, No Organomegaly, No Distention, No Abnormal Bruit, No Mass (Male) Exam: Deferred Rectal (Males) Exam: Deferred Back Exam: Normal Inspection, Full Range of Motion, NT Extremities: Pedal Edema (left lower extremity), Other (prostetic right lower extremity) Neurological: Alert, Oriented, CN II-XII Intact, Normal Cognition, Normal Gait, Normal Reflexes, No Motor/Sensory Deficits Psychiatric: Normal Affect, Normal Mood Skin Exam: Warm, Dry, Intact, Normal Color, No Rash Lymphatic: No Adenopathy Course - Vital Signs Last Recorded V/S: Last Vital Signs Temp 37.0 C 06/14/17 12:00 Pulse 69 06/14/17 12:00 Resp 23 H 06/14/17 12:00 BP 149/79 H 06/14/17 12:00 Pulse Ox 93 L 06/14/17 12:00 - Orders/Labs/Meds Orders: Active Orders 24 hr Category Date Time Status EKG Documentation Completion [RC] URGENT Care 06/14/17 11:55 Active UA W/MICROSCOPIC [URIN] Stat Lab 06/14/17 13:17 Received Labs: Laboratory Tests 06/14/17 06/14/17 06/14/17 Range/Units 11:58 11:58 11:58 WBC 9.2 (5.0-10.0) 10^3/uL RBC 4.10 L (4.6-6.2) 10^6/uL Hgb 10.7 L (14.0-18.0) g/dL Hct 34.6 L (40.0-54.0) % MCV 84.4 (80-100) fL MCH 26.1 L (27.0-34.0) pg MCHC 30.9 L (33.0-35.0) g/dL Plt Count 162 (150-450) 10^3/uL Neut % (Auto) 82.6 H (42.2-75.2) % Lymph % (Auto) 9.8 L (20.5-50.1) % Spink % (Auto) 6.0 (2-8) % Eos % (Auto) 1.3 (1.0-3.0) % Baso % (Auto) 0.3 (0.0-1.0) % PT 23.1 H (9.0-12.0) SEC INR 2.3 H (0.9-1.2) Sodium 134 L (135-145) mmol/L Potassium 4.1 (3.6-5.0) mmol/L Chloride 102 (101-111) mmol/L Carbon Dioxide 25.0 (21.0-31.0) mmol/L Anion Gap 11.1 BUN 20 H (7-18) mg/dL Creatinine 1.1 (0.6-1.3) mg/dL Est Cr Clr Drug Dosing 59.81 mL/min Estimated GFR (MDRD) > 60 BUN/Creatinine Ratio 18.18 Glucose 181 H (74-105) mg/dL Calcium 8.4 (8.4-10.2) mg/dl Total Bilirubin 0.6 (0.2-1.0) mg/dL AST 20 (10-42) IU/L ALT 14 (10-60) IU/L Alkaline Phosphatase 58 (42-121) IU/L Troponin I 0.03 H* (0.00-0.02) ng/ml B-Natriuretic Peptide 1150 H (0-100) pg/ml Total Protein 6.7 (6.7-8.2) g/dl Albumin 3.1 L (3.2-5.5) g/dl Globulin 3.6 Albumin/Globulin Ratio 0.86 Meds: Medications Discontinued Medications Generic Name Dose Route Start Last Admin Trade Name Freq PRN Reason Stop Dose Admin Furosemide 40 mg 06/14/17 12:22 06/14/17 12:42 Lasix IVPUSH 06/14/17 12:23 40 mg NOW ONE Administration Departure - Departure Time of Disposition: 13:39 Disposition: Admitted As Inpatient 64 Condition: Poor Clinical Impression: CHF, Congestive heart failure, SOB (shortness of breath) Care Plan Goals: Discussed the examination, lab and x-ray results with Dr. Garcia (Hospitalist with [facility] in [place]). Dr. Garcia accepted the patient for continued evaluation and further management. - My Orders Last 24 Hours: My Active Orders 06/14/17 11:55 EKG Documentation Completion [RC] URGENT 06/14/17 13:17 UA W/MICROSCOPIC [URIN] Stat - Assessment/Plan Last 24 Hours: My Active Orders 06/14/17 11:55 EKG Documentation Completion [RC] URGENT 06/14/17 13:17 UA W/MICROSCOPIC [URIN] Stat
--- NOTE | 2017-06-14 13:08 | CR ---
Clinical history: 71-year-old male shortness of breath. Interpretation: Generalized vascular congesti on and small dependent new subpulmonic pleural effusion blunting right costophrenic sulcus when chintan red to 16 June 2014 and more recent 23 May 2017 exam. Normal cardiac silhouette i.e. size and c onfiguration unchanged and no new alveolar edema. Noncardiogenic failure? Renal? Cardiac pacemaker leads intact. External hospital monitor leads. No new lung mass, hilar lymphadenopathy or focal lobar pneumonia. CONCLUSION: Abnormal (see above).
[2017-06-14] MEDS ORDERED: Furosemide 20 MG Tab PO PRN (14:39)
--- NOTE | 2017-06-14 15:48 | PCM.HP ---
H&P History of Present Illness - General Date of Service: 06/14/17 Admit Problem/Dx: Admission Diagnosis/Problem Admission Diagnosis/Problem Shortness of breath Source of Information: Patient History Limitations: Reports: No Limitations - History of Present Illness Initial Comments - Free Text/Narative: Patient is 71-year-old male admitted because of shortness of breath. Patient started having shortness of breath yesterday. He was advised by his manager federal to a connection dose of Lasix. He took an extra dose of his Lasix 20 mg this morning, however did not note any appropriate diuresis. Contacted clinic, was advised to be seen in the emergency room. They not idiopathic peptide was noted to be elevated and hence was advised admission. Patient has a diagnosis of CHF. No note of any PND, orthopnea. Noticed some leg swelling. No changes in her diet. No fever, chills, chest pain or palpitations. notices occasional wheezing. Was recently admitted last month because of CHF exacerbation. - Related Data Allergies/Adverse Reactions: Allergies Allergy/AdvReac Type Severity Reaction Status Date / Time No Known Allergies Allergy Verified 05/23/17 02:04 Home Medications: Home Meds Aspirin [Low Dose Aspirin EC] 81 mg PO DAILY 03/12/14 [History] Carvedilol 12.5 mg PO BIDMEALS 03/12/14 [History] Cyanocobalamin (Vitamin B-12) [Vitamin B-12] 2,500 mcg SL DAILY 03/12/14 [ History] Finasteride 5 mg PO DAILY 03/12/14 [History] Tamsulosin HCl 0.4 mg PO BEDTIME 03/12/14 [History] atorvaSTATin [Lipitor] 10 mg PO BEDTIME 06/16/14 [History] Warfarin [Coumadin] 5 mg PO DAILY 05/23/17 [History] metFORMIN [Glucophage] 1,000 mg PO BIDMEALS 05/23/17 [History] Furosemide [Lasix] 20 mg PO DAILY PRN #30 tablet 05/24/17 [Rx] Past Medical History HEENT History: Reports: Cataract, Impaired Vision Cardiovascular History: Reports: Heart Failure, High Cholesterol, Hypertension, Pacemaker, Other (See Below) Other Cardiovascular History: Heart Attack, defib/pacemaker Respiratory History: Reports: SOB Gastrointestinal History: Reports: Hiatal Hernia Genitourinary History: Reports: BPH, Renal Calculus Other Musculoskeletal History: right below the knee amputation Neurological History: Reports: CVA Endocrine/Metabolic History: Reports: Diabetes, Type II Hematologic History: Reports: B12 Deficiency Immunologic History: Reports: None - Infectious Disease History Infectious Disease History: Reports: Chicken Pox, Measles, Mumps - Past Surgical History HEENT Surgical History: Reports: Adenoidectomy, Cataract Surgery, Tonsillectomy Cardiovascular Surgical History: Reports: None GI Surgical History: Reports: Appendectomy Male Surgical History: Reports: None Neurological Surgical History: Reports: None Musculoskeletal Surgical History: Reports: Amputation Social & Family History - Family History Family Medical History: Unobtainable Cardiac: Reports: MS Oncologic: Reports: Other (See Below) Other Oncologic Family History: mets - Tobacco Use Smoking Status *Q: Former Smoker Years of Tobacco use: 25 Packs/Tins Daily: 4 Used Tobacco, but Quit: Yes Month/Year Tobacco Last Used: Second Hand Smoke Exposure: No - Caffeine Use Caffeine Use: Reports: None - Alcohol Use Days Per Week of Alcohol Use: 0 - Recreational Drug Use Recreational Drug Use: No - Living Situation & Occupation Living situation: Reports: , with Spouse Occupation: Retired H&P Review of Systems - Review of Systems: Review Of Systems: See Below General: Reports: No Symptoms HEENT: Reports: No Symptoms Pulmonary: Reports: Shortness of Breath Cardiovascular: Reports: Edema Gastrointestinal: Reports: No Symptoms Genitourinary: Reports: No Symptoms Exam - Exam Exam: See Below - Vital Signs Vital Signs: Last Vital Signs Temp 98.8 F 06/14/17 14:44 Pulse 62 06/14/17 14:44 Resp 16 06/14/17 14:44 BP 133/66 06/14/17 14:44 Pulse Ox 97 06/14/17 14:44 Weight: 200 lb 12.8 oz - Exam General: Alert, Oriented HEENT: EOMI Neck: Supple Lungs: Clear to Auscultation, Normal Respiratory Effort Cardiovascular: Regular Rate, Regular Rhythm GI/Abdominal Exam: Normal Bowel Sounds, Soft, Non-Tender Extremities: Other ((+) pitting edema on left leg) Skin: Warm - Patient Data Result Diagrams: 06/14/17 11:58 06/15/17 05:50 Problem List Initiated/Reviewed/Updated: Yes Orders Last 24hrs: Active Orders 24 hr Category Date Time Status Daily Weight [Height and Weight] [RC] 0600 Care 06/14/17 15:30 Active Incentive Spirometry [RT Incentive Spirometry] [] Care 06/14/17 14:51 Active ASDIRECTED Intake and Output Strict [] ASDIRECTED Care 06/14/17 15:29 Active INR,PT,PROTHROMBIN TIME [COAG] DAILY Lab 06/15/17 06:00 Ordered INR,PT,PROTHROMBIN TIME [COAG] DAILY Lab 06/16/17 06:00 Ordered INR,PT,PROTHROMBIN TIME [COAG] DAILY Lab 06/17/17 06:00 Ordered INR,PT,PROTHROMBIN TIME [COAG] DAILY Lab 06/18/17 06:00 Ordered INR,PT,PROTHROMBIN TIME [COAG] DAILY Lab 06/19/17 06:00 Ordered INR,PT,PROTHROMBIN TIME [COAG] DAILY Lab 06/20/17 06:00 Ordered Resuscitation Status Routine Resus Stat 06/14/17 15:30 Ordered Medication Orders Aspirin (Halfprin) 81 mg PO DAILY [facility] Atorvastatin Calcium (Lipitor) 10 mg PO BEDTIME [facility] Carvedilol (Coreg) 12.5 mg PO BIDMEALS [facility] Finasteride (Proscar) 5 mg PO DAILY [facility] Furosemide (Lasix) 20 mg PO DAILY PRN PRN Reason: weight is up by 3# in 3 days Metformin HCl (Glucophage) 1,000 mg PO BIDMEALS [facility] Tamsulosin HCl (Flomax) 0.4 mg PO BEDTIME [facility] Warfarin Sodium (Coumadin) 5 mg PO DAILY@1400 [facility] Assessment/Plan Comment:: 1. Shortness of breath in a patient with history of CHF and an elevated brain natruretic peptide - He was already given Lasix 40 mg IV in the emergency room and he also took an extra dose of Lasix 20 mg by mouth today. - Was noted to started to diurese even the emergency room. We will continue to stay to monitor input and output. Do daily weights. - Do fluid restriction. Repeat BMP to check electrolytes and renal function. - Incentive spirometry. 2. Mild elevated troponin - Patient denies any chest pain. EKG showed T-wave changes on V4 to V6 which is present in previous EKGs. - Also on review of previous ER visits, it seems that 0.03 has been his baseline. 3. Anemia - Chronic. No signs of bleeding 4. Warfarin anticoagulation - Review of clinic notes, patient is on this given the CHF and history of CVA. Check INR daily. 5. History of stroke - Ensure good blood pressure, and glycemic control. 6. Diabetes mellitus. - On metformin. Resume Check sugars pre-meals and at bedtime. We'll do insulin corrective dose. 7. BPH. On Proscar 8. DVT prophylaxis. Already on warfarin. Total antibiotic O's. 9. CODE STATUS. DNR
[2017-06-14] MEDS: Carvedilol 6.25 MG Tab PO SCH (17:49)
[2017-06-14] MEDS: metFORMIN 500 MG Tab PO SCH (17:53)
[2017-06-14] MEDS ORDERED: Tamsulosin 0.4 MG Cap.ER PO SCH (21:00)
[2017-06-14] MEDS ORDERED: atorvaSTATin 10 MG Tab PO SCH (21:00)
[2017-06-15 06:33] LABS: ANION GAP 10.8; CHLORIDE,CL 100 mmol/L (101-111); SODIUM,NA 135 mmol/L (135-145)
[2017-06-15] MEDS: metFORMIN 500 MG Tab PO SCH (08:28)
[2017-06-15] MEDS: Carvedilol 6.25 MG Tab PO SCH (08:28)
[2017-06-15] MEDS ORDERED: CYANOCOBALAMIN 2500 MCG SL SCH (09:00)
[2017-06-15] MEDS ORDERED: Finasteride 5 MG Tab PO SCH (09:00)
[2017-06-15] MEDS ORDERED: Aspirin 81 MG Tab.EC PO SCH (09:00)
[2017-06-15] MEDS ORDERED: Furosemide 40 MG/4 ML VIAL IVPUSH ONE (10:44)
[2017-06-15 12:55] VITALS: BP 143/75
[2017-06-15] MEDS ORDERED: Warfarin 5 MG Tab PO SCH (14:00)
--- NOTE | 2017-06-15 14:00 | PCM.DCSUM1 ---
Discharge Summary - Hospital Course Free Text/Narrative:: This is a 71-year-old male admitted because of shortness of breath. Patient started having shortness of breath on 06/13/17. He was seen in the emergency room. Patient has pasdt medical history of CHF. Diabetes II, Hypertension, CAD , BPH, and base line CKD stage III. -On admission he Noticed to have some leg swelling. and had No fever, chills, chest pain or palpitations. After admission he was given IV lasix and also this Morning given IV lasix, he did have good diuresis and will go home with oral lasix. He will follow with PMD in a week and will also be seen in renal Clinic in 2 weeks ( May,, at 12:40 PM ) - Discharge Data Discharge Date: 06/15/17 Discharge Disposition: Home, Self-Care 01 Condition: Good - Patient Instructions Diet: Usual Diet as Tolerated Activity: As Tolerated Driving: May Drive Today Showering/Bathing: May Shower Notify Provider of: Fever, Nausea and/or Vomiting Other/Special Instructions: This is a 71-year-old male admitted because of shortness of breath. Patient started having shortness of breath from 06/13/17. He was seen in the emergency room. Patient has past medical history of CHF, Diabetes II, Hypertension, CAD, BPH, and base line CKD stage III. -On admission he Noticed some leg swelling. had No fever, chills, chest pain or palpitations. After admission he was given IV lasix and also this Morning given IV lasix, he did have good diuresis and will go home with oral lasix. He will follow with PMD in a week and will also be seen in renal Clinic in 2 weeks ( May,, at 12:40 PM ). -Check weight daily and call me in Renal clinic at [phone] with weight, if Needed will adjust Furosemide dose. Take Furosemide 20 mg daily. - Discharge Plan Home Medications: Home Meds Aspirin [Low Dose Aspirin EC] 81 mg PO DAILY 03/12/14 [History] Carvedilol 12.5 mg PO BIDMEALS 03/12/14 [History] Cyanocobalamin (Vitamin B-12) [Vitamin B-12] 2,500 mcg SL DAILY 03/12/14 [ History] Finasteride 5 mg PO DAILY 03/12/14 [History] Tamsulosin HCl 0.4 mg PO BEDTIME 03/12/14 [History] atorvaSTATin [Lipitor] 10 mg PO BEDTIME 06/16/14 [History] Warfarin [Coumadin] 5 mg PO DAILY 05/23/17 [History] metFORMIN [Glucophage] 1,000 mg PO BIDMEALS 05/23/17 [History] Furosemide [Lasix] 20 mg PO DAILY PRN #30 tablet 05/24/17 [Rx] Patient Handouts: Furosemide tablets, Shortness of Breath, Adult, [id number] , Heart Failure, [id number] Referrals: Joesph Rasmussen MD [Primary Care Provider] - - Discharge Summary/Plan Comment DC Time >30 min.: Yes Discharge Summary/Plan Comment: Assessment/Plan Comment:: 1. Shortness of breath in a patient with history of CHF and an elevated brain natruretic peptide ( Likely CHF exacerbation) - He was given Lasix 40 mg IV in the emergency room and another dose of 40 mg IV X 1 dose today, he responded well to IV lasix, feels better and will go home -Will start him on lasix 20 mg PO daily -Advise to check weight daily and call me in clinic if there is weight gain or Fluid retention 2. Mild elevated troponin - Patient denies any chest pain. EKG showed T-wave changes on V4 to V6 which is present in previous EKGs. - Also on review of previous ER visits, it seems that 0.03 has been his baseline. 3. Anemia - Chronic. No signs of bleeding, will check Iron storage, Folate and B12 4. Warfarin anticoagulation - Review of clinic notes, patient is on this given the CHF and history of CVA. Check INR daily. 5. History of stroke - Ensure good blood pressure, and glycemic control. 6. Diabetes mellitus. - On metformin. Resume Check sugars pre-meals and at bedtime. We'll do insulin corrective dose. 7. BPH. On Proscar 8. DVT prophylaxis. Already on warfarin. Total antibiotic O's. 9. Disposition: will be going home today 10. CODE STATUS. DNR - Patient Data Vitals - Most Recent: Last Vital Signs Temp 36.9 C 06/15/17 11:00 Pulse 71 06/15/17 11:00 Resp 20 06/15/17 11:00 BP 143/75 H 06/15/17 11:00 Pulse Ox 98 06/15/17 11:00 Weight - Most Recent: 88.723 kg I&O - Last 24 hours: Intake & Output 06/14/17 06/15/17 06/15/17 22:59 06:59 14:59 Intake Total 450 350 400 Output Total 1650 500 825 Balance -1200 -150 -425 Lab Results - Last 24 hrs: Laboratory Results - last 24 hr 06/15/17 06/15/17 Range/Units 05:50 05:50 PT 22.6 H (9.0-12.0) SEC INR 2.2 H (0.9-1.2) Sodium 135 (135-145) mmol/L Potassium 3.8 (3.6-5.0) mmol/L Chloride 100 L (101-111) mmol/L Carbon Dioxide 28.0 (21.0-31.0) mmol/L Anion Gap 10.8 BUN 19 H (7-18) mg/dL Creatinine 1.1 (0.6-1.3) mg/dL Est Cr Clr Drug Dosing 59.81 mL/min Estimated GFR (MDRD) > 60 Glucose 113 H (74-105) mg/dL Calcium 8.3 L (8.4-10.2) mg/dl Med Orders - Current: Current Medications Aspirin (Halfprin) 81 mg PO DAILY [facility] Last Admin: 06/15/17 09:46 Dose: 81 mg Atorvastatin Calcium (Lipitor) 10 mg PO BEDTIME [facility] Last Admin: 06/14/17 20:52 Dose: 10 mg Carvedilol (Coreg) 12.5 mg PO BIDMEALS [facility] Last Admin: 06/15/17 08:28 Dose: 12.5 mg Finasteride (Proscar) 5 mg PO DAILY [facility] Last Admin: 06/15/17 09:46 Dose: 5 mg Furosemide (Lasix) 20 mg PO DAILY PRN PRN Reason: weight is up by 3# in 3 days Metformin HCl (Glucophage) 1,000 mg PO BIDMEALS [facility] Last Admin: 06/15/17 08:28 Dose: 1,000 mg Tamsulosin HCl (Flomax) 0.4 mg PO BEDTIME [facility] Last Admin: 06/14/17 20:51 Dose: 0.4 mg Warfarin Sodium (Coumadin) 5 mg PO DAILY@1400 [facility] Last Admin: 06/15/17 13:57 Dose: 5 mg Discontinued Medications Furosemide (Lasix) 40 mg IVPUSH NOW ONE Stop: 06/14/17 12:23 Last Admin: 06/14/17 12:42 Dose: 40 mg Furosemide (Lasix) 40 mg IVPUSH NOW ONE Stop: 06/15/17 10:45 Last Admin: 06/15/17 11:50 Dose: 40 mg Cyanocobalamin ( Vitamin B-12) 2, 500mcg 2,500 mcg SL DAILY PEGGY *Q Meaningful Use (DIS) - VTE *Q VTE Criteria *Q: - Stroke *Q Stroke Criteria *Q: - AMI *Q AMI Criteria *Q:
--- NOTE | 2017-06-17 10:41 | EKG ---
06/14/2017- FARHANA WRIGHT - This is a standard 12-lead EKG showing normal sinus rhythm, ventricular rate 66 beats per minute for first-degree AV block, normal ST-T, no significant ST depression. [facility] /[id number]
== END 2017-06-15 14:50 | disposition home or self-care (01) | DRG 293 ==
LOC: DL.ED 11:41 → DL.MS 14:13 → UNDOADMIN 14:13 → DL.MS 14:44
PROVIDERS: ADMIT Internal Medicine; ATTEND Internal Medicine
DX: I50.9 Heart failure, unspecified (principal); I13.0 Hypertensive heart and chronic kidney disease with heart failure and stage 1 through stage 4 chronic kidney disease, or unspecified chronic kidney disease; I10 Essential (primary) hypertension; E11.22 Type 2 diabetes mellitus with diabetic chronic kidney disease; E11.9 Type 2 diabetes mellitus without complications; N18.3 Chronic kidney disease, stage 3 (moderate); D64.9 Anemia, unspecified; R74.8 Abnormal levels of other serum enzymes; I25.10 Atherosclerotic heart disease of native coronary artery without angina pectoris; N40.0 Benign prostatic hyperplasia without lower urinary tract symptoms; I25.2 Old myocardial infarction; Z86.73 Personal history of transient ischemic attack (TIA), and cerebral infarction without residual deficits; Z66 Do not resuscitate; Z79.01 Long term (current) use of anticoagulants; Z79.899 Other long term (current) drug therapy; Z79.82 Long term (current) use of aspirin; E78.00 Pure hypercholesterolemia, unspecified; Z89.511 Acquired absence of right leg below knee; Z95.0 Presence of cardiac pacemaker
CPT/HCPCS: 36415; 71045; 80053; 81001; 83880; 84484; 85025; 85610; 93005; 93010; 96374; 99285; J1940; 80048; 94010; A9270-GY

== ENCOUNTER 2017-12-10 18:14 | Observation (INO) | payer MEDICARE, OTHER ==
[2017-12-10] MEDS ORDERED: Sodium Chloride 0.9% 10 ML Syringe FLUSH PRN ×2 (18:30→21:45)
[2017-12-10] MEDS ORDERED: Furosemide 40 MG/4 ML VIAL IVPUSH ONE (18:39)
--- NOTE | 2017-12-10 18:45 | EDM.PDOC ---
<Rona Singletary - Last Filed: 12/10/17 18:39> ED HPI GENERAL MEDICAL PROBLEM - General Chief Complaint: Respiratory Problem Stated Complaint: SOB Time Seen by Provider: 12/10/17 18:40 Source of Information: Reports: Patient, EMS Notes Reviewed, Family (), RN, RN Notes Reviewed History Limitations: Reports: No Limitations - History of Present Illness INITIAL COMMENTS - FREE TEXT/NARRATIVE: Pt presents to ER from home by POV with c/o shortness of breath, increasing LE edema, and 5lb weight gain in the past 24 hours. Pt denies chest pain, fever, chills, N/V, abdominal pain or distention. Pt took lasix 20mg po three time today. 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: Other Medication(s) - Related Data Allergies Allergy/AdvReac Type Severity Reaction Status Date / Time No Known Allergies Allergy Verified 12/10/17 18:22 Home Meds: Home Meds Aspirin [Low Dose Aspirin EC] 81 mg PO DAILY 03/12/14 [History] Carvedilol 12.5 mg PO BIDMEALS 03/12/14 [History] Cyanocobalamin (Vitamin B-12) [Vitamin B-12] 2,500 mcg SL DAILY 03/12/14 [ History] Finasteride 5 mg PO DAILY 03/12/14 [History] Tamsulosin HCl 0.4 mg PO BEDTIME 03/12/14 [History] atorvaSTATin [Lipitor] 10 mg PO BEDTIME 06/16/14 [History] Warfarin [Coumadin] 5 mg PO DAILY 05/23/17 [History] metFORMIN [Glucophage] 1,000 mg PO BIDMEALS 05/23/17 [History] Furosemide [Lasix] 20 mg PO DAILY PRN #30 tablet 05/24/17 [Rx] Past Medical History HEENT History: Reports: Cataract, Impaired Vision Cardiovascular History: Reports: Heart Failure, High Cholesterol, Hypertension, Pacemaker, Other (See Below) Other Cardiovascular History: Heart Attack, defib/pacemaker Respiratory History: Reports: SOB Gastrointestinal History: Reports: Hiatal Hernia Genitourinary History: Reports: BPH, Renal Calculus Other Musculoskeletal History: right below the knee amputation Neurological History: Reports: CVA Endocrine/Metabolic History: Reports: Diabetes, Type II Hematologic History: Reports: B12 Deficiency Immunologic History: Reports: None - Infectious Disease History Infectious Disease History: Reports: Chicken Pox, Measles, Mumps - Past Surgical History HEENT Surgical History: Reports: Adenoidectomy, Cataract Surgery, Tonsillectomy Cardiovascular Surgical History: Reports: None GI Surgical History: Reports: Appendectomy Male Surgical History: Reports: None Neurological Surgical History: Reports: None Musculoskeletal Surgical History: Reports: Amputation Social & Family History - Family History Family Medical History: Unobtainable Cardiac: Reports: [place] Oncologic: Reports: Other (See Below) Other Oncologic Family History: mets - Tobacco Use Smoking Status *Q: Former Smoker Used Tobacco, but Quit: Yes Month/Year Tobacco Last Used: 1985 - Caffeine Use Caffeine Use: Reports: Soda - Recreational Drug Use Recreational Drug Use: No - Living Situation & Occupation Living situation: Reports: , with Spouse Occupation: Retired ED ROS GENERAL - Review of Systems Review Of Systems: ROS reveals no pertinent complaints other than HPI. ED EXAM, GENERAL - Physical Exam Exam: See Below Exam Limited By: No Limitations General Appearance: Alert, WD/WN, No Apparent Distress, Other (chronically ill appearing) Ears: Hearing Grossly Normal Throat/Mouth: Normal Inspection, Normal Lips, Normal Teeth, Normal Gums, Normal Oropharynx, Normal Voice, No Airway Compromise Head: Atraumatic, Normocephalic Neck: Normal Inspection, Supple, Non-Tender, Full Range of Motion Respiratory/Chest: No Respiratory Distress, No Accessory Muscle Use, Chest Non- Tender, Decreased Breath Sounds, Crackles, Rales Cardiovascular: Regular Rate, Rhythm, Other (2+ edema to knee on left, (s/p Rt BKA)) GI/Abdominal: Normal Bowel Sounds, Soft, Non-Tender, No Distention, No Abnormal Bruit. No: Guarding, Rigid, Rebound (Male) Exam: Deferred Rectal (Males) Exam: Deferred Back Exam: Normal Inspection Extremities: Normal Range of Motion, Non-Tender Neurological: Alert, Oriented, CN II-XII Intact, Normal Cognition, No Motor/ Sensory Deficits Psychiatric: Normal Affect, Normal Mood Skin Exam: Warm, Dry, No Rash, Wound/Incision (subacute wound to left lower leg : approx. 2.5cm abrasion with peripheral erythema, no purulent drainage) EKG INTERPRETATION EKG Date: 12/10/17 Time: 18:19 Rhythm: Other (Paced) Rate (Beats/Min): 63 EKG Interpretation Comments: Paced: no further interpretation Course - Vital Signs Last Recorded V/S: Last Vital Signs Temp 98.4 F 12/10/17 18:19 Pulse 69 12/10/17 18:19 Resp 32 H 12/10/17 18:19 BP 146/75 H 12/10/17 18:19 Pulse Ox 91 L 12/10/17 18:19 - Orders/Labs/Meds Orders: Active Orders 24 hr Category Date Time Status EKG 12 Lead [EKG Documentation Completion] [RC] STAT Care 12/10/17 18:31 Active Peripheral IV Care [RC] . DIRECTED Care 12/10/17 18:32 Active Chest 1V Frontal [CR] Stat Exams 12/10/17 18:31 Taken Sodium Chloride 0.9% [Saline Flush] Med 12/10/17 18:30 Active 10 ml FLUSH ASDIRECTED PRN Peripheral IV Insertion Adult [OM.PC] Stat Oth 12/10/17 18:31 Ordered Medication Orders Sodium Chloride (Saline Flush) 10 ml FLUSH ASDIRECTED PRN PRN Reason: Keep Vein Open Last Admin: 12/10/17 18:47 Dose: 10 ml Labs: Laboratory Tests 12/10/17 12/10/17 12/10/17 Range/Units 18:32 18:42 18:42 WBC 8.1 (5.0-10.0) 10^3/uL RBC 3.97 L (4.6-6.2) 10^6/uL Hgb 10.0 L (14.0-18.0) g/dL Hct 32.8 L (40.0-54.0) % MCV 82.6 (80-100) fL MCH 25.2 L (27.0-34.0) pg MCHC 30.5 L (33.0-35.0) g/dL Plt Count 156 (150-450) 10^3/uL Neut % (Auto) 78.9 H (42.2-75.2) % Lymph % (Auto) 12.3 L (20.5-50.1) % [place] % (Auto) 7.4 (2-8) % Eos % (Auto) 1.2 (1.0-3.0) % Baso % (Auto) 0.2 (0.0-1.0) % PT 27.1 H (9.0-12.0) SEC INR 2.8 H (0.9-1.2) APTT 36.1 H (22.0-34.0) SEC Sodium (135-145) mmol/L Potassium (3.6-5.0) mmol/L Chloride (101-111) mmol/L Carbon Dioxide (21.0-31.0) mmol/L Anion Gap BUN (7-18) mg/dL Creatinine (0.6-1.3) mg/dL Est Cr Clr Drug Dosing mL/min Estimated GFR (MDRD) BUN/Creatinine Ratio Glucose (74-105) mg/dL Calcium (8.4-10.2) mg/dl Total Bilirubin (0.2-1.0) mg/dL AST (10-42) IU/L ALT (10-60) IU/L Alkaline Phosphatase (42-121) IU/L Troponin I (0.00-0.02) ng/ml B-Natriuretic Peptide (0-100) pg/ml Total Protein (6.7-8.2) g/dl Albumin (3.2-5.5) g/dl Globulin Albumin/Globulin Ratio Urine Color Yellow (YELLOW) Urine Appearance Slightly cloudy (CLEAR) Urine pH 6.5 (5.0-9.0) Ur Specific Ruth 1.020 (1.005-1.030) Urine Protein 100 H (NEGATIVE) Urine Glucose (UA) Negative (NEGATIVE) Urine Ketones Negative (NEGATIVE) Urine Occult Blood Small H (NEGATIVE) Urine Nitrite Negative (NEGATIVE) Urine Bilirubin Negative (NEGATIVE) Urine Urobilinogen 0.2 (0.2-1.0) mg/dL Ur Leukocyte Esterase Negative (NEGATIVE) Urine RBC 5-10 H /HPF Urine WBC 0-5 (0-5/HPF) /HPF Ur Epithelial Cells Rare /HPF Amorphous Sediment Rare (0/HPF) /HPF Urine Bacteria Rare (0-FEW/HPF) /HPF Urine Mucus Rare /LPF 12/10/17 Range/Units 18:42 WBC (5.0-10.0) 10^3/uL RBC (4.6-6.2) 10^6/uL Hgb (14.0-18.0) g/dL Hct (40.0-54.0) % MCV (80-100) fL MCH (27.0-34.0) pg MCHC (33.0-35.0) g/dL Plt Count (150-450) 10^3/uL Neut % (Auto) (42.2-75.2) % Lymph % (Auto) (20.5-50.1) % [place] % (Auto) (2-8) % Eos % (Auto) (1.0-3.0) % Baso % (Auto) (0.0-1.0) % PT (9.0-12.0) SEC INR (0.9-1.2) APTT (22.0-34.0) SEC Sodium 134 L (135-145) mmol/L Potassium 4.2 (3.6-5.0) mmol/L Chloride 100 L (101-111) mmol/L Carbon Dioxide 25.0 (21.0-31.0) mmol/L Anion Gap 13.2 BUN 23 H (7-18) mg/dL Creatinine 1.2 (0.6-1.3) mg/dL Est Cr Clr Drug Dosing 54.01 mL/min Estimated GFR (MDRD) 59 BUN/Creatinine Ratio 19.16 Glucose 142 H (74-105) mg/dL Calcium 8.5 (8.4-10.2) mg/dl Total Bilirubin 0.6 (0.2-1.0) mg/dL AST 19 (10-42) IU/L ALT 12 (10-60) IU/L Alkaline Phosphatase 59 (42-121) IU/L Troponin I 0.04 H* (0.00-0.02) ng/ml B-Natriuretic Peptide 2060 H (0-100) pg/ml Total Protein 6.7 (6.7-8.2) g/dl Albumin 3.3 (3.2-5.5) g/dl Globulin 3.4 Albumin/Globulin Ratio 0.97 Urine Color (YELLOW) Urine Appearance (CLEAR) Urine pH (5.0-9.0) Ur Specific Ruth (1.005-1.030) Urine Protein (NEGATIVE) Urine Glucose (UA) (NEGATIVE) Urine Ketones (NEGATIVE) Urine Occult Blood (NEGATIVE) Urine Nitrite (NEGATIVE) Urine Bilirubin (NEGATIVE) Urine Urobilinogen (0.2-1.0) mg/dL Ur Leukocyte Esterase (NEGATIVE) Urine RBC /HPF Urine WBC (0-5/HPF) /HPF Ur Epithelial Cells /HPF Amorphous Sediment (0/HPF) /HPF Urine Bacteria (0-FEW/HPF) /HPF Urine Mucus /LPF Meds: Medications Generic Name Dose Route Start Last Admin Trade Name Freq PRN Reason Stop Dose Admin Sodium Chloride 10 ml 12/10/17 18:30 12/10/17 18:47 Saline Flush FLUSH 10 ml ASDIRECTED PRN Administration Keep Vein Open Discontinued Medications Generic Name Dose Route Start Last Admin Trade Name Freq PRN Reason Stop Dose Admin Furosemide 60 mg 12/10/17 18:39 12/10/17 18:48 Lasix IVPUSH 12/10/17 18:40 60 mg NOW ONE Administration - Re-Assessments/Exams Free Text/Narrative Re-Assessment/Exam: 12/10/17 19:00 Care of pt transferred to Mile GIMENEZ at shift change. Departure - Departure Disposition: Refer to Observation Clinical Impression: Chronic anticoagulation Congestive heart failure Qualifiers: Heart failure type: unspecified Heart failure chronicity: acute on chronic Qualified Code(s): I50.9 - Heart failure, unspecified Hx of BKA Qualifiers: Laterality: right Qualified Code(s): Z89.511 - Acquired absence of right leg below knee - Discharge Information Forms: ED Department Discharge <Mile Wiseman - Last Filed: 12/10/17 20:09> Course - Radiology Interpretation Free Text/Narrative:: [facility] Final Radiology Report Call: [phone] assistance Online chat: [email or web address] Name: FARHANA WRIGHT Age: 72Years M Date: 12/10/2017 SSN: -- : [id number] Study: XR CHEST 1 VIEW Requesting Physician: RONA SINGLETARY Images: 1 Addl Studies: Provided Clinical History: Contrast: Contrast Medium: Contrast Amount: Contrast Method: Page 1 of 2 EXAM: XR Chest, 1 View CLINICAL HISTORY: 72 years old, male; Signs and symptoms; Dyspnea and other: Edema TECHNIQUE: Frontal view of the chest. COMPARISON: CR - Chest 1V Frontal 06/14/2017 12:59 PM FINDINGS: Lungs: Bibasilar patchy infiltrates. Pleural space: Unremarkable. No pneumothorax. Heart: Unremarkable. No cardiomegaly. Mediastinum: Unremarkable. Bones/joints: Unremarkable. Vasculature: Atherosclerosis. Mild vascular pulmonary congestion. Tubes, lines and devices: Left pacemaker. IMPRESSION: Bibasilar patchy infiltrates. Mild congestion. Left pacemaker. Atherosclerosis. Thank you for allowing us to participate in the care of your patient. - Re-Assessments/Exams Free Text/Narrative Re-Assessment/Exam: TC Dr Callahan, Will evaluate in ED. 12/10/17 20:09 admit observation Departure - Departure Time of Disposition: 20:08 Condition: Good - Discharge Information *PRESCRIPTION DRUG MONITORING PROGRAM REVIEWED*: Not Applicable
[2017-12-10 19:07] LABS: ANION GAP 13.2
[2017-12-10] MEDS ORDERED: Furosemide 20 MG Tab PO PRN (21:55)
--- NOTE | 2017-12-10 22:10 | PCM.HP ---
H&P History of Present Illness - General Date of Service: 12/10/17 Admit Problem/Dx: Admission Diagnosis/Problem Admission Diagnosis/Problem Congestive heart failure of unknown etiology Source of Information: Patient History Limitations: Reports: No Limitations - History of Present Illness Initial Comments - Free Text/Narative: 72 yo M with PMH of CHF with reduced EF, CVA, DM controlled, who presents with shortness of breath. SOB: started this morning, worse with exertion. Associated 5 Lb weight gain. Also associated leg swelling No cough, no chest pain, no abdominal pain. Claims adherence to water restriction and salt restriction Onset of Symptoms: Reports: Today Severity: Moderate Improves with: Reports: None Worsens with: Reports: None Associated Symptoms: Reports: Shortness of Breath - Related Data Allergies/Adverse Reactions: Allergies Allergy/AdvReac Type Severity Reaction Status Date / Time No Known Allergies Allergy Verified 12/10/17 20:26 Home Medications: Home Meds Aspirin [Low Dose Aspirin EC] 81 mg PO DAILY 03/12/14 [History] Carvedilol 12.5 mg PO BIDMEALS 03/12/14 [History] Cyanocobalamin (Vitamin B-12) [Vitamin B-12] 2,500 mcg SL DAILY 03/12/14 [ History] Finasteride 5 mg PO DAILY 03/12/14 [History] Tamsulosin HCl 0.4 mg PO BEDTIME 03/12/14 [History] atorvaSTATin [Lipitor] 10 mg PO BEDTIME 06/16/14 [History] Warfarin [Coumadin] 5 mg PO DAILY 05/23/17 [History] metFORMIN [Glucophage] 1,000 mg PO BIDMEALS 05/23/17 [History] Furosemide [Lasix] 20 mg PO DAILY PRN 12/10/17 [History] Past Medical History HEENT History: Reports: Cataract, Impaired Vision Cardiovascular History: Reports: Heart Failure, High Cholesterol, Hypertension, Pacemaker, Other (See Below) Other Cardiovascular History: Heart Attack, defib/pacemaker Respiratory History: Reports: SOB Gastrointestinal History: Reports: Hiatal Hernia Genitourinary History: Reports: BPH, Renal Calculus Other Musculoskeletal History: right below the knee amputation Neurological History: Reports: CVA Endocrine/Metabolic History: Reports: Diabetes, Type II Hematologic History: Reports: B12 Deficiency Immunologic History: Reports: None - Infectious Disease History Infectious Disease History: Reports: Chicken Pox, Measles, Mumps - Past Surgical History HEENT Surgical History: Reports: Adenoidectomy, Cataract Surgery, Tonsillectomy Cardiovascular Surgical History: Reports: None GI Surgical History: Reports: Appendectomy Male Surgical History: Reports: None Neurological Surgical History: Reports: None Musculoskeletal Surgical History: Reports: Amputation Social & Family History - Family History Family Medical History: Unobtainable Cardiac: Reports: [place] Oncologic: Reports: Other (See Below) Other Oncologic Family History: mets - Tobacco Use Smoking Status *Q: Former Smoker Used Tobacco, but Quit: Yes Month/Year Tobacco Last Used: 1985 - Caffeine Use Caffeine Use: Reports: Soda - Recreational Drug Use Recreational Drug Use: No - Living Situation & Occupation Living situation: Reports: , with Spouse Occupation: Retired H&P Review of Systems - Review of Systems: Review Of Systems: See Below General: Reports: No Symptoms HEENT: Reports: No Symptoms Pulmonary: Reports: Shortness of Breath Cardiovascular: Reports: Dyspnea on Exertion. Denies: Chest Pain, Palpitations , Lightheadedness Gastrointestinal: Reports: No Symptoms Genitourinary: Reports: No Symptoms Musculoskeletal: Reports: No Symptoms Skin: Reports: No Symptoms Psychiatric: Reports: No Symptoms Exam - Exam Exam: See Below - Vital Signs Vital Signs: Last Vital Signs Temp 37.2 C 12/10/17 20:18 Pulse 62 12/10/17 20:18 Resp 22 H 12/10/17 20:18 BP 152/65 H 12/10/17 20:18 Pulse Ox 97 12/10/17 20:18 Weight: 91.172 kg - Exam General: Alert, Oriented HEENT: Conjunctiva Clear Neck: Supple, Trachea Midline Lungs: Crackles, Other (bibasal crackles) Cardiovascular: Regular Rate, Regular Rhythm. No: Gallop/S3 GI/Abdominal Exam: Normal Bowel Sounds (Male) Exam: No Hernia - Patient Data Lab Results Last 24 hrs: Laboratory Results - last 24 hr 12/10/17 12/10/17 12/10/17 Range/Units 18:32 18:42 18:42 WBC 8.1 (5.0-10.0) 10^3/uL RBC 3.97 L (4.6-6.2) 10^6/uL Hgb 10.0 L (14.0-18.0) g/dL Hct 32.8 L (40.0-54.0) % MCV 82.6 (80-100) fL MCH 25.2 L (27.0-34.0) pg MCHC 30.5 L (33.0-35.0) g/dL Plt Count 156 (150-450) 10^3/uL Neut % (Auto) 78.9 H (42.2-75.2) % Lymph % (Auto) 12.3 L (20.5-50.1) % [place] % (Auto) 7.4 (2-8) % Eos % (Auto) 1.2 (1.0-3.0) % Baso % (Auto) 0.2 (0.0-1.0) % PT 27.1 H (9.0-12.0) SEC INR 2.8 H (0.9-1.2) APTT 36.1 H (22.0-34.0) SEC Sodium (135-145) mmol/L Potassium (3.6-5.0) mmol/L Chloride (101-111) mmol/L Carbon Dioxide (21.0-31.0) mmol/L Anion Gap BUN (7-18) mg/dL Creatinine (0.6-1.3) mg/dL Est Cr Clr Drug Dosing mL/min Estimated GFR (MDRD) BUN/Creatinine Ratio Glucose (74-105) mg/dL POC Glucose (83-110) mg/dl Calcium (8.4-10.2) mg/dl Total Bilirubin (0.2-1.0) mg/dL AST (10-42) IU/L ALT (10-60) IU/L Alkaline Phosphatase (42-121) IU/L Troponin I (0.00-0.02) ng/ml B-Natriuretic Peptide (0-100) pg/ml Total Protein (6.7-8.2) g/dl Albumin (3.2-5.5) g/dl Globulin Albumin/Globulin Ratio Urine Color Yellow (YELLOW) Urine Appearance Slightly cloudy (CLEAR) Urine pH 6.5 (5.0-9.0) Ur Specific [place] 1.020 (1.005-1.030) Urine Protein 100 H (NEGATIVE) Urine Glucose (UA) Negative (NEGATIVE) Urine Ketones Negative (NEGATIVE) Urine Occult Blood Small H (NEGATIVE) Urine Nitrite Negative (NEGATIVE) Urine Bilirubin Negative (NEGATIVE) Urine Urobilinogen 0.2 (0.2-1.0) mg/dL Ur Leukocyte Esterase Negative (NEGATIVE) Urine RBC 5-10 H /HPF Urine WBC 0-5 (0-5/HPF) /HPF Ur Epithelial Cells Rare /HPF Amorphous Sediment Rare (0/HPF) /HPF Urine Bacteria Rare (0-FEW/HPF) /HPF Urine Mucus Rare /LPF 12/10/17 12/10/17 Range/Units 18:42 21:23 WBC (5.0-10.0) 10^3/uL RBC (4.6-6.2) 10^6/uL Hgb (14.0-18.0) g/dL Hct (40.0-54.0) % MCV (80-100) fL MCH (27.0-34.0) pg MCHC (33.0-35.0) g/dL Plt Count (150-450) 10^3/uL Neut % (Auto) (42.2-75.2) % Lymph % (Auto) (20.5-50.1) % [place] % (Auto) (2-8) % Eos % (Auto) (1.0-3.0) % Baso % (Auto) (0.0-1.0) % PT (9.0-12.0) SEC INR (0.9-1.2) APTT (22.0-34.0) SEC Sodium 134 L (135-145) mmol/L Potassium 4.2 (3.6-5.0) mmol/L Chloride 100 L (101-111) mmol/L Carbon Dioxide 25.0 (21.0-31.0) mmol/L Anion Gap 13.2 BUN 23 H (7-18) mg/dL Creatinine 1.2 (0.6-1.3) mg/dL Est Cr Clr Drug Dosing 54.01 mL/min Estimated GFR (MDRD) 59 BUN/Creatinine Ratio 19.16 Glucose 142 H (74-105) mg/dL POC Glucose 145 H (83-110) mg/dl Calcium 8.5 (8.4-10.2) mg/dl Total Bilirubin 0.6 (0.2-1.0) mg/dL AST 19 (10-42) IU/L ALT 12 (10-60) IU/L Alkaline Phosphatase 59 (42-121) IU/L Troponin I 0.04 H* (0.00-0.02) ng/ml B-Natriuretic Peptide 2060 H (0-100) pg/ml Total Protein 6.7 (6.7-8.2) g/dl Albumin 3.3 (3.2-5.5) g/dl Globulin 3.4 Albumin/Globulin Ratio 0.97 Urine Color (YELLOW) Urine Appearance (CLEAR) Urine pH (5.0-9.0) Ur Specific [place] (1.005-1.030) Urine Protein (NEGATIVE) Urine Glucose (UA) (NEGATIVE) Urine Ketones (NEGATIVE) Urine Occult Blood (NEGATIVE) Urine Nitrite (NEGATIVE) Urine Bilirubin (NEGATIVE) Urine Urobilinogen (0.2-1.0) mg/dL Ur Leukocyte Esterase (NEGATIVE) Urine RBC /HPF Urine WBC (0-5/HPF) /HPF Ur Epithelial Cells /HPF Amorphous Sediment (0/HPF) /HPF Urine Bacteria (0-FEW/HPF) /HPF Urine Mucus /LPF Result Diagrams: 12/10/17 18:42 12/10/17 18:42 Problem List Initiated/Reviewed/Updated: Yes Orders Last 24hrs: Active Orders 24 hr Category Date Time Status Patient Status [ADT] Routine ADT 12/10/17 21:46 Ordered Ambulate [RC] ASDIRECTED Care 12/10/17 21:45 Ordered Bedrest Bathroom Privileges [RC] ASDIRECTED Care 12/10/17 21:45 Ordered Bedrest Bedside Commode [RC] ASDIRECTED Care 12/10/17 21:45 Ordered Height and Weight [RC] DAILY Care 12/10/17 21:45 Ordered Intake and Output [RC] QSHIFT Care 12/10/17 21:54 Ordered Oxygen Therapy [RC] PRN Care 12/10/17 21:46 Ordered Peripheral IV Care [RC] . DIRECTED Care 12/10/17 21:55 Ordered Up ad [place] [RC] ASDIRECTED Care 12/10/17 21:45 Ordered Up to Chair [RC] ASDIRECTED Care 12/10/17 21:45 Ordered VTE/DVT Education [RC] PER UNIT ROUTINE Care 12/10/17 21:46 Ordered Vital Signs [RC] Q4H Care 12/10/17 21:46 Ordered 2 Gram Sodium Diet [DIET] Diet 12/11/17 Breakfast Ordered Heart Healthy Diet [DIET] Diet 12/11/17 Breakfast Ordered Chest 1V Frontal [CR] Stat Exams 12/10/17 18:31 Taken Aspirin [Halfprin] Med 12/11/17 09:00 Ordered 81 mg PO DAILY Carvedilol [Coreg] Med 12/11/17 08:00 Ordered 12.5 mg PO BIDMEALS Cyanocobalamin (Vitamin B-12) [Vitamin B-12] Med 12/11/17 09:00 Ordered 2,500 mcg SL DAILY Finasteride [Proscar] Med 12/11/17 09:00 Ordered 5 mg PO DAILY Furosemide [Lasix] Med 12/10/17 22:00 Ordered 40 mg IVPUSH BID Heparin Sodium Med 12/10/17 22:00 Ordered 5,000 units SUBCUT Q8HR Sodium Chloride 0.9% [Saline Flush] Med 12/10/17 18:30 Active 10 ml FLUSH ASDIRECTED PRN Sodium Chloride 0.9% [Saline Flush] Med 12/10/17 21:45 Ordered 10 ml FLUSH ASDIRECTED PRN Tamsulosin [Flomax] Med 12/11/17 21:00 Ordered 0.4 mg PO BEDTIME Warfarin [Coumadin] Med 12/11/17 09:00 Ordered 5 mg PO DAILY atorvaSTATin [Lipitor] Med 12/11/17 21:00 Ordered 10 mg PO BEDTIME metFORMIN [Glucophage] Med 12/11/17 08:00 Ordered 1,000 mg PO BIDMEALS Peripheral IV Insertion Adult [OM.PC] Routine Oth 12/10/17 21:45 Ordered Peripheral IV Insertion Adult [OM.PC] Stat Oth 12/10/17 18:31 Ordered Resuscitation Status Routine Resus Stat 12/10/17 21:45 Ordered Medication Orders Aspirin (Halfprin) 81 mg PO DAILY [facility] Atorvastatin Calcium (Lipitor) 10 mg PO BEDTIME [facility] Carvedilol (Coreg) 12.5 mg PO BIDMEALS [facility] Finasteride (Proscar) 5 mg PO DAILY [facility] Furosemide (Lasix) 40 mg IVPUSH BID [facility] Heparin Sodium (Porcine) (Heparin Sodium) 5,000 units SUBCUT Q8HR [facility] Metformin HCl (Glucophage) 1,000 mg PO BIDMEALS PEGG[facility] Non-Formulary Medication (Cyanocobalamin (Vitamin B-12) [Vitamin B-12]) 2,500 mcg SL DAILY [facility] Sodium Chloride (Saline Flush) 10 ml FLUSH ASDIRECTED PRN PRN Reason: Keep Vein Open Last Admin: 12/10/17 18:47 Dose: 10 ml Sodium Chloride (Saline Flush) 10 ml FLUSH ASDIRECTED PRN PRN Reason: Keep Vein Open Tamsulosin HCl (Flomax) 0.4 mg PO BEDTIME [facility] Warfarin Sodium (Coumadin) 5 mg PO DAILY [facility] Assessment/Plan Comment:: CHF, systolic, acute on chronic - Admit to the general medical floor - Full Telemetry - IV Lasix 40 mg IV q12 hours - GDMT: continue coreg, ACEi - Fluid restriction to 1.5L per day - Salt restriction to 2g per day - 2D echo - Strict I's and O's charting - Daily weights DM2, controlled - carb controlled diet - accuchecks AC and HS - ISS - continue metformin Code Status: DONNA
[2017-12-10] MEDS: Heparin Sodium 5,000 Units/ML Vial SUBCUT SCH (22:17)
[2017-12-10] MEDS: Furosemide 40 MG/4 ML VIAL IVPUSH SCH (22:17)
[2017-12-11] MEDS: Heparin Sodium 5,000 Units/ML Vial SUBCUT SCH (07:19)
[2017-12-11] MEDS ORDERED: Carvedilol 6.25 MG Tab PO SCH (08:00)
[2017-12-11] MEDS ORDERED: metFORMIN 500 MG Tab PO SCH (08:00)
[2017-12-11] MEDS: Furosemide 40 MG/4 ML VIAL IVPUSH SCH (08:49)
[2017-12-11] MEDS: Insulin Aspart 100 Units/ML 3 ML Pen SUBCUT SCH ×2 (08:50→12:37)
[2017-12-11] MEDS ORDERED: CYANOCOBALAMIN 2500 MCG SL SCH (09:00)
[2017-12-11] MEDS ORDERED: Warfarin 5 MG Tab PO SCH (09:00)
[2017-12-11] MEDS ORDERED: Finasteride 5 MG Tab PO SCH (09:00)
[2017-12-11] MEDS ORDERED: [UNRECOGNIZED DRUG - OTHER] SL SCH (09:00)
[2017-12-11] MEDS ORDERED: Aspirin 81 MG Tab.EC PO SCH (09:00)
[2017-12-11 10:57] VITALS: BP 143/79
--- NOTE | 2017-12-11 11:31 | PCM.DCSUM1 ---
Discharge Summary - Hospital Course Free Text/Narrative:: 72 yo M with PMH of CHF with reduced EF, CVA, DM controlled, who presents with shortness of breath, worse with exertion. Associated 5 Lb weight gain. Also associated leg swelling No cough, no chest pain, no abdominal pain. Claims adherence to water restriction and salt restriction He recieved IV diuresis and felt much better. Discharged home, to follow up with PCP. GMDT with cecilia and Deandra continued. Oral lasix 20 mg daily restarted. Diagnosis: Stroke: No - Discharge Data Discharge Date: 12/11/17 Discharge Disposition: Home, Self-Care 01 Condition: Fair - Patient Instructions Diet: Low Sodium Fluid Restriction: 1500 mL Activity: As Tolerated - Discharge Plan *PRESCRIPTION DRUG MONITORING PROGRAM REVIEWED*: Not Applicable Home Medications: Home Meds Aspirin [Low Dose Aspirin EC] 81 mg PO DAILY 03/12/14 [History] Carvedilol 12.5 mg PO BIDMEALS 03/12/14 [History] Cyanocobalamin (Vitamin B-12) [Vitamin B-12] 2,500 mcg SL DAILY 03/12/14 [ History] Finasteride 5 mg PO DAILY 03/12/14 [History] Tamsulosin HCl 0.4 mg PO BEDTIME 03/12/14 [History] atorvaSTATin [Lipitor] 10 mg PO BEDTIME 06/16/14 [History] Warfarin [Coumadin] 5 mg PO DAILY 05/23/17 [History] metFORMIN [Glucophage] 1,000 mg PO BIDMEALS 05/23/17 [History] Furosemide [Lasix] 20 mg PO DAILY #0 12/11/17 [Rx] Patient Handouts: Fluid Restriction, Low-Sodium Eating Plan, Heart Failure, [id number] Referrals: Joesph Rasmussen MD [Physician] - - General Info Date of Service: 12/11/17 Admission Dx/Problem (Free Text: Admission Diagnosis/Problem Admission Diagnosis/Problem Congestive heart failure of unknown etiology - Review of Systems General: Reports: No Symptoms HEENT: Reports: No Symptoms Pulmonary: Reports: Shortness of Breath (improved) Cardiovascular: Reports: No Symptoms Gastrointestinal: Reports: No Symptoms Genitourinary: Reports: No Symptoms Musculoskeletal: Reports: No Symptoms Skin: Reports: No Symptoms - Patient Data Vitals - Most Recent: Last Vital Signs Temp 36.9 C 12/11/17 10:56 Pulse 61 12/11/17 10:56 Resp 20 12/11/17 10:56 BP 143/79 H 12/11/17 10:56 Pulse Ox 99 12/11/17 10:56 Weight - Most Recent: 84.141 kg I&O - Last 24 hours: Intake & Output 12/10/17 12/11/17 12/11/17 22:59 06:59 14:59 Intake Total 120 Output Total 1900 1550 900 Balance -1900 -1550 -780 Lab Results - Last 24 hrs: Laboratory Results - last 24 hr 12/10/17 12/10/17 12/10/17 Range/Units 18:32 18:42 18:42 WBC 8.1 (5.0-10.0) 10^3/uL RBC 3.97 L (4.6-6.2) 10^6/uL Hgb 10.0 L (14.0-18.0) g/dL Hct 32.8 L (40.0-54.0) % MCV 82.6 (80-100) fL MCH 25.2 L (27.0-34.0) pg MCHC 30.5 L (33.0-35.0) g/dL Plt Count 156 (150-450) 10^3/uL Neut % (Auto) 78.9 H (42.2-75.2) % Lymph % (Auto) 12.3 L (20.5-50.1) % [place] % (Auto) 7.4 (2-8) % Eos % (Auto) 1.2 (1.0-3.0) % Baso % (Auto) 0.2 (0.0-1.0) % PT 27.1 H (9.0-12.0) SEC INR 2.8 H (0.9-1.2) APTT 36.1 H (22.0-34.0) SEC Sodium (135-145) mmol/L Potassium (3.6-5.0) mmol/L Chloride (101-111) mmol/L Carbon Dioxide (21.0-31.0) mmol/L Anion Gap BUN (7-18) mg/dL Creatinine (0.6-1.3) mg/dL Est Cr Clr Drug Dosing mL/min Estimated GFR (MDRD) BUN/Creatinine Ratio Glucose (74-105) mg/dL POC Glucose (83-110) mg/dl Calcium (8.4-10.2) mg/dl Total Bilirubin (0.2-1.0) mg/dL AST (10-42) IU/L ALT (10-60) IU/L Alkaline Phosphatase (42-121) IU/L Troponin I (0.00-0.02) ng/ml B-Natriuretic Peptide (0-100) pg/ml Total Protein (6.7-8.2) g/dl Albumin (3.2-5.5) g/dl Globulin Albumin/Globulin Ratio Urine Color Yellow (YELLOW) Urine Appearance Slightly cloudy (CLEAR) Urine pH 6.5 (5.0-9.0) Ur Specific [place] 1.020 (1.005-1.030) Urine Protein 100 H (NEGATIVE) Urine Glucose (UA) Negative (NEGATIVE) Urine Ketones Negative (NEGATIVE) Urine Occult Blood Small H (NEGATIVE) Urine Nitrite Negative (NEGATIVE) Urine Bilirubin Negative (NEGATIVE) Urine Urobilinogen 0.2 (0.2-1.0) mg/dL Ur Leukocyte Esterase Negative (NEGATIVE) Urine RBC 5-10 H /HPF Urine WBC 0-5 (0-5/HPF) /HPF Ur Epithelial Cells Rare /HPF Amorphous Sediment Rare (0/HPF) /HPF Urine Bacteria Rare (0-FEW/HPF) /HPF Urine Mucus Rare /LPF 12/10/17 12/10/17 12/11/17 Range/Units 18:42 21:23 07:48 WBC (5.0-10.0) 10^3/uL RBC (4.6-6.2) 10^6/uL Hgb (14.0-18.0) g/dL Hct (40.0-54.0) % MCV (80-100) fL MCH (27.0-34.0) pg MCHC (33.0-35.0) g/dL Plt Count (150-450) 10^3/uL Neut % (Auto) (42.2-75.2) % Lymph % (Auto) (20.5-50.1) % [place] % (Auto) (2-8) % Eos % (Auto) (1.0-3.0) % Baso % (Auto) (0.0-1.0) % PT (9.0-12.0) SEC INR (0.9-1.2) APTT (22.0-34.0) SEC Sodium 134 L (135-145) mmol/L Potassium 4.2 (3.6-5.0) mmol/L Chloride 100 L (101-111) mmol/L Carbon Dioxide 25.0 (21.0-31.0) mmol/L Anion Gap 13.2 BUN 23 H (7-18) mg/dL Creatinine 1.2 (0.6-1.3) mg/dL Est Cr Clr Drug Dosing 54.01 mL/min Estimated GFR (MDRD) 59 BUN/Creatinine Ratio 19.16 Glucose 142 H (74-105) mg/dL POC Glucose 145 H 113 H (83-110) mg/dl Calcium 8.5 (8.4-10.2) mg/dl Total Bilirubin 0.6 (0.2-1.0) mg/dL AST 19 (10-42) IU/L ALT 12 (10-60) IU/L Alkaline Phosphatase 59 (42-121) IU/L Troponin I 0.04 H* (0.00-0.02) ng/ml B-Natriuretic Peptide 2060 H (0-100) pg/ml Total Protein 6.7 (6.7-8.2) g/dl Albumin 3.3 (3.2-5.5) g/dl Globulin 3.4 Albumin/Globulin Ratio 0.97 Urine Color (YELLOW) Urine Appearance (CLEAR) Urine pH (5.0-9.0) Ur Specific [place] (1.005-1.030) Urine Protein (NEGATIVE) Urine Glucose (UA) (NEGATIVE) Urine Ketones (NEGATIVE) Urine Occult Blood (NEGATIVE) Urine Nitrite (NEGATIVE) Urine Bilirubin (NEGATIVE) Urine Urobilinogen (0.2-1.0) mg/dL Ur Leukocyte Esterase (NEGATIVE) Urine RBC /HPF Urine WBC (0-5/HPF) /HPF Ur Epithelial Cells /HPF Amorphous Sediment (0/HPF) /HPF Urine Bacteria (0-FEW/HPF) /HPF Urine Mucus /LPF 12/11/17 Range/Units 11:06 WBC (5.0-10.0) 10^3/uL RBC (4.6-6.2) 10^6/uL Hgb (14.0-18.0) g/dL Hct (40.0-54.0) % MCV (80-100) fL MCH (27.0-34.0) pg MCHC (33.0-35.0) g/dL Plt Count (150-450) 10^3/uL Neut % (Auto) (42.2-75.2) % Lymph % (Auto) (20.5-50.1) % [place] % (Auto) (2-8) % Eos % (Auto) (1.0-3.0) % Baso % (Auto) (0.0-1.0) % PT (9.0-12.0) SEC INR (0.9-1.2) APTT (22.0-34.0) SEC Sodium (135-145) mmol/L Potassium (3.6-5.0) mmol/L Chloride (101-111) mmol/L Carbon Dioxide (21.0-31.0) mmol/L Anion Gap BUN (7-18) mg/dL Creatinine (0.6-1.3) mg/dL Est Cr Clr Drug Dosing mL/min Estimated GFR (MDRD) BUN/Creatinine Ratio Glucose (74-105) mg/dL POC Glucose 189 H (83-110) mg/dl Calcium (8.4-10.2) mg/dl Total Bilirubin (0.2-1.0) mg/dL AST (10-42) IU/L ALT (10-60) IU/L Alkaline Phosphatase (42-121) IU/L Troponin I (0.00-0.02) ng/ml B-Natriuretic Peptide (0-100) pg/ml Total Protein (6.7-8.2) g/dl Albumin (3.2-5.5) g/dl Globulin Albumin/Globulin Ratio Urine Color (YELLOW) Urine Appearance (CLEAR) Urine pH (5.0-9.0) Ur Specific [place] (1.005-1.030) Urine Protein (NEGATIVE) Urine Glucose (UA) (NEGATIVE) Urine Ketones (NEGATIVE) Urine Occult Blood (NEGATIVE) Urine Nitrite (NEGATIVE) Urine Bilirubin (NEGATIVE) Urine Urobilinogen (0.2-1.0) mg/dL Ur Leukocyte Esterase (NEGATIVE) Urine RBC /HPF Urine WBC (0-5/HPF) /HPF Ur Epithelial Cells /HPF Amorphous Sediment (0/HPF) /HPF Urine Bacteria (0-FEW/HPF) /HPF Urine Mucus /LPF Med Orders - Current: Current Medications Aspirin (Halfprin) 81 mg PO DAILY [facility] Last Admin: 12/11/17 08:48 Dose: 81 mg Atorvastatin Calcium (Lipitor) 10 mg PO BEDTIME [facility] Carvedilol (Coreg) 12.5 mg PO BIDMEALS [facility] Last Admin: 12/11/17 08:48 Dose: 12.5 mg Finasteride (Proscar) 5 mg PO DAILY [facility] Last Admin: 12/11/17 08:49 Dose: 5 mg Furosemide (Lasix) 40 mg IVPUSH BID [facility] Last Admin: 12/11/17 08:49 Dose: 40 mg Heparin Sodium (Porcine) (Heparin Sodium) 5,000 units SUBCUT Q8HR [facility] Last Admin: 12/11/17 07:19 Dose: Not Given Insulin Aspart (Novolog) 0 unit SUBCUT TIDAC [facility]; Protocol Last Admin: 12/11/17 08:50 Dose: Not Given Metformin HCl (Glucophage) 1,000 mg PO BIDMEALS [facility] Last Admin: 12/11/17 08:48 Dose: Not Given Non-Formulary Medication (Cyanocobalamin (Vitamin B-12) [Vitamin B-12]) 2,500 mcg SL DAILY [facility] Sodium Chloride (Saline Flush) 10 ml FLUSH ASDIRECTED PRN PRN Reason: Keep Vein Open Last Admin: 12/10/17 18:47 Dose: 10 ml Sodium Chloride (Saline Flush) 10 ml FLUSH ASDIRECTED PRN PRN Reason: Keep Vein Open Tamsulosin HCl (Flomax) 0.4 mg PO BEDTIME [facility] Warfarin Sodium (Coumadin) 5 mg PO DAILY [facility] Discontinued Medications Furosemide (Lasix) 60 mg IVPUSH NOW ONE Stop: 12/10/17 18:40 Last Admin: 12/10/17 18:48 Dose: 60 mg Furosemide (Lasix) 20 mg PO DAILY PRN PRN Reason: weight is up by 3# in 3 days - Exam General: Reports: Alert, Oriented HEENT: Reports: Pupils Equal Neck: Reports: Supple Lungs: Reports: Clear to Auscultation Cardiovascular: Reports: Regular Rate, Regular Rhythm GI/Abdominal Exam: Normal Bowel Sounds
--- NOTE | 2017-12-11 19:47 | EKG ---
12/10/2017 - FARHANA WRIGHT - EKG shows a heart rate of 60 beats per minute, paced rhythm. [facility] /[id number]
[2017-12-11] MEDS ORDERED: atorvaSTATin 10 MG Tab PO SCH (21:00)
[2017-12-11] MEDS ORDERED: Tamsulosin 0.4 MG Cap.ER PO SCH (21:00)
== END 2017-12-11 13:25 | disposition home or self-care (01) ==
LOC: DL.ED 18:14 → DL.MS 20:11 → UNDOADMOB 20:11 → DL.MS 21:45
PROVIDERS: ADMIT Hospitalist; ATTEND Hospitalist
DX: I11.0 Hypertensive heart disease with heart failure (principal); I50.43 Acute on chronic combined systolic (congestive) and diastolic (congestive) heart failure; E11.9 Type 2 diabetes mellitus without complications; E78.00 Pure hypercholesterolemia, unspecified; Z87.891 Personal history of nicotine dependence; Z79.84 Long term (current) use of oral hypoglycemic drugs; Z79.01 Long term (current) use of anticoagulants; Z79.82 Long term (current) use of aspirin; Z79.899 Other long term (current) drug therapy; Z95.0 Presence of cardiac pacemaker
CPT/HCPCS: 36415; 71045; 80053; 81001; 82962; 83880; 84484; 85025; 85610; 85730; 93005; 93010; 96374; 96376; 99283; 99285; A9270; G0378; J1940; J7050

== ENCOUNTER 2017-12-30 23:06 | Observation (INO) | payer MEDICARE, OTHER ==
--- NOTE | 2017-12-30 23:17 | EDM.PDOC ---
ED HPI GENERAL MEDICAL PROBLEM - General Chief Complaint: Cardiovascular Problem Stated Complaint: NEEDS LASIX [id number] Time Seen by Provider: 12/30/17 23:16 Source of Information: Reports: Patient, Family, RN, RN Notes Reviewed History Limitations: Reports: No Limitations - History of Present Illness INITIAL COMMENTS - FREE TEXT/NARRATIVE: Pt to ER with request of Lasix. Patient states he takes Lasix daily and needs some extra today as he feels has gotten somewhat more SOB today. He states he did not want it to get worse. He states he was to the clinic today for an appointment and had labs drawn. Pt admits PMH of stroke, [place], pacemaker, CHF, RBKA, DMII, etc. Denies any chest pains at this time. Onset: Today, Gradual - Related Data Allergies Allergy/AdvReac Type Severity Reaction Status Date / Time No Known Allergies Allergy Verified 12/30/17 23:17 Home Meds: Home Meds Aspirin [Low Dose Aspirin EC] 81 mg PO DAILY 03/12/14 [History] Carvedilol 12.5 mg PO BIDMEALS 03/12/14 [History] Cyanocobalamin (Vitamin B-12) [Vitamin B-12] 2,500 mcg SL DAILY 03/12/14 [ History] Finasteride 5 mg PO DAILY 03/12/14 [History] Tamsulosin HCl 0.4 mg PO BEDTIME 03/12/14 [History] atorvaSTATin [Lipitor] 10 mg PO BEDTIME 06/16/14 [History] Warfarin [Coumadin] 5 mg PO DAILY 05/23/17 [History] metFORMIN [Glucophage] 1,000 mg PO BIDMEALS 05/23/17 [History] Furosemide [Lasix] 20 mg PO DAILY #0 12/11/17 [Rx] Sacubitril/Valsartan [Entresto 24 mg-26 mg Tablet] 1 tab PO BID 12/11/17 [ History] Past Medical History HEENT History: Reports: Cataract, Impaired Vision Cardiovascular History: Reports: Heart Failure, High Cholesterol, Hypertension, Pacemaker, Other (See Below) Other Cardiovascular History: Heart Attack, defib/pacemaker Respiratory History: Reports: SOB Gastrointestinal History: Reports: Hiatal Hernia Genitourinary History: Reports: BPH, Renal Calculus Other Musculoskeletal History: right below the knee amputation Neurological History: Reports: CVA Endocrine/Metabolic History: Reports: Diabetes, Type II Hematologic History: Reports: B12 Deficiency Immunologic History: Reports: None - Infectious Disease History Infectious Disease History: Reports: Chicken Pox, Measles, Mumps - Past Surgical History HEENT Surgical History: Reports: Adenoidectomy, Cataract Surgery, Tonsillectomy Cardiovascular Surgical History: Reports: None GI Surgical History: Reports: Appendectomy Male Surgical History: Reports: None Neurological Surgical History: Reports: None Musculoskeletal Surgical History: Reports: Amputation Social & Family History - Family History Family Medical History: Unobtainable Cardiac: Reports: [place] Oncologic: Reports: Other (See Below) Other Oncologic Family History: mets - Caffeine Use Caffeine Use: Reports: Soda - Living Situation & Occupation Living situation: Reports: , with Spouse Occupation: Retired ED ROS GENERAL - Review of Systems Review Of Systems: ROS reveals no pertinent complaints other than HPI. ED EXAM, GENERAL - Physical Exam Exam: See Below Exam Limited By: No Limitations General Appearance: Alert, WD/WN, No Apparent Distress Eye Exam: Bilateral Eye: EOMI, Normal Inspection Ears: Normal External Exam, Hearing Grossly Normal Nose: Normal Inspection Throat/Mouth: Normal Inspection, Normal Voice, No Airway Compromise Head: Atraumatic, Normocephalic Neck: Normal Inspection Respiratory/Chest: No Respiratory Distress, No Accessory Muscle Use, Chest Non- Tender, Decreased Breath Sounds, Crackles, Rales (throughout) Cardiovascular: Normal Peripheral Pulses, Regular Rate, Rhythm, No Gallop, No JVD, No Murmur, No Rub Peripheral Pulses: 2+: Radial (L), Radial (R) GI/Abdominal: Normal Bowel Sounds, Soft, Non-Tender, Distended (Male) Exam: Deferred Rectal (Males) Exam: Deferred Back Exam: Normal Inspection, Full Range of Motion Extremities: Normal Inspection, Normal Range of Motion, Non-Tender, No Pedal Edema, Normal Capillary Refill, Other (right BKA) Neurological: Alert, Oriented, CN II-XII Intact, Normal Cognition, Normal Gait, Normal Reflexes, No Motor/Sensory Deficits Psychiatric: Anxious Skin Exam: Warm, Dry, Intact, No Rash, Pallor Lymphatic: No Adenopathy EKG INTERPRETATION EKG Date: 12/30/17 Time: 23:20 Rhythm: A-Fib Rate (Beats/Min): 74 Comparison: Change From Previous EKG Course - Vital Signs Last Recorded V/S: Last Vital Signs Temp 97.6 F 12/30/17 23:19 Pulse 91 12/30/17 23:19 Resp 21 H 12/30/17 23:19 BP 140/87 12/30/17 23:19 Pulse Ox 93 L 12/30/17 23:19 - Orders/Labs/Meds Orders: Active Orders 24 hr Category Date Time Status EKG Documentation Completion [RC] STAT Care 12/30/17 23:15 Active Chest 1V Frontal [CR] Stat Exams 12/30/17 23:15 Taken Labs: Laboratory Tests 12/30/17 12/30/17 Range/Units 23:17 23:17 WBC 9.0 (5.0-10.0) 10^3/uL RBC 4.35 L (4.6-6.2) 10^6/uL Hgb 10.9 L (14.0-18.0) g/dL Hct 35.9 L (40.0-54.0) % MCV 82.5 (80-100) fL MCH 25.1 L (27.0-34.0) pg MCHC 30.4 L (33.0-35.0) g/dL Plt Count 188 (150-450) 10^3/uL Neut % (Auto) 73.8 (42.2-75.2) % Lymph % (Auto) 15.8 L (20.5-50.1) % [place] % (Auto) 8.4 H (2-8) % Eos % (Auto) 1.6 (1.0-3.0) % Baso % (Auto) 0.4 (0.0-1.0) % Sodium 137 (135-145) mmol/L Potassium 4.2 (3.6-5.0) mmol/L Chloride 102 (101-111) mmol/L Carbon Dioxide 27.0 (21.0-31.0) mmol/L Anion Gap 12.2 BUN 22 H (7-18) mg/dL Creatinine 1.2 (0.6-1.3) mg/dL Est Cr Clr Drug Dosing 54.01 mL/min Estimated GFR (MDRD) 59 BUN/Creatinine Ratio 18.33 Glucose 151 H (74-105) mg/dL Calcium 8.8 (8.4-10.2) mg/dl Total Bilirubin 0.5 (0.2-1.0) mg/dL AST 21 (10-42) IU/L ALT 13 (10-60) IU/L Alkaline Phosphatase 70 (42-121) IU/L Troponin I 0.03 H* (0.00-0.02) ng/ml B-Natriuretic Peptide 3140 H (0-100) pg/ml Total Protein 7.3 (6.7-8.2) g/dl Albumin 3.6 (3.2-5.5) g/dl Globulin 3.7 Albumin/Globulin Ratio 0.97 Meds: Medications Discontinued Medications Generic Name Dose Route Start Last Admin Trade Name Freq PRN Reason Stop Dose Admin Furosemide 80 mg 12/30/17 23:47 12/30/17 23:52 Lasix IVPUSH 12/30/17 23:48 80 mg NOW ONE Administration - Radiology Interpretation Free Text/Narrative:: Chest xray: See rad report - Re-Assessments/Exams Free Text/Narrative Re-Assessment/Exam: 12/31/17 00:07 Dr. Callahan agreed to accept the patient for observation. Departure - Departure Time of Disposition: 00:06 Disposition: Refer to Observation Condition: Fair Clinical Impression: CHF, Congestive heart failure Forms: ED Department Discharge - My Orders Last 24 Hours: My Active Orders 12/30/17 23:15 EKG Documentation Completion [RC] STAT Chest 1V Frontal [CR] Stat - Assessment/Plan Last 24 Hours: My Active Orders 12/30/17 23:15 EKG Documentation Completion [RC] STAT Chest 1V Frontal [CR] Stat
[2017-12-30 23:44] LABS: ANION GAP 12.2
[2017-12-30] MEDS ORDERED: Furosemide 40 MG/4 ML VIAL IVPUSH ONE (23:47)
--- NOTE | 2017-12-31 02:32 | PCM.HP ---
H&P History of Present Illness - General Date of Service: 12/31/17 Admit Problem/Dx: Admission Diagnosis/Problem Admission Diagnosis/Problem Congestive heart failure of unknown etiology Source of Information: Patient History Limitations: Reports: No Limitations - History of Present Illness Initial Comments - Free Text/Narative: 72 yo M with PMH of CHF with reduced EF, CVA, DM controlled, who presents with shortness of breath. SOB: started this evening, worse with exertion. No cough, no chest pain, no abdominal pain. Claims adherence to water restriction and salt restriction Currently on 20 mg daily lasix - Related Data Allergies/Adverse Reactions: Allergies Allergy/AdvReac Type Severity Reaction Status Date / Time No Known Allergies Allergy Verified 12/31/17 00:21 Home Medications: Home Meds Aspirin [Low Dose Aspirin EC] 81 mg PO DAILY 03/12/14 [History] Carvedilol 12 mg PO BIDMEALS 03/12/14 [History] Cyanocobalamin (Vitamin B-12) [Vitamin B-12] 2,500 mcg SL DAILY 03/12/14 [ History] Finasteride 5 mg PO DAILY 03/12/14 [History] Tamsulosin HCl 0.4 mg PO BEDTIME 03/12/14 [History] atorvaSTATin [Lipitor] 10 mg PO BEDTIME 06/16/14 [History] Warfarin [Coumadin] 5 mg PO DAILY 05/23/17 [History] metFORMIN [Glucophage] 1,000 mg PO BIDMEALS 05/23/17 [History] Furosemide [Lasix] 20 mg PO DAILY #0 12/11/17 [Rx] Sacubitril/Valsartan [Entresto 24 mg-26 mg Tablet] 24 mg PO BID 12/11/17 [ History] Past Medical History HEENT History: Reports: Cataract, Impaired Vision Cardiovascular History: Reports: Heart Failure, High Cholesterol, Hypertension, Pacemaker, Other (See Below) Other Cardiovascular History: Heart Attack, defib/pacemaker Respiratory History: Reports: SOB Gastrointestinal History: Reports: Hiatal Hernia Genitourinary History: Reports: BPH, Renal Calculus Other Musculoskeletal History: right below the knee amputation Neurological History: Reports: CVA Endocrine/Metabolic History: Reports: Diabetes, Type II Hematologic History: Reports: B12 Deficiency Immunologic History: Reports: None - Infectious Disease History Infectious Disease History: Reports: Chicken Pox, Measles, Mumps - Past Surgical History HEENT Surgical History: Reports: Adenoidectomy, Cataract Surgery, Tonsillectomy Cardiovascular Surgical History: Reports: None GI Surgical History: Reports: Appendectomy Male Surgical History: Reports: None Neurological Surgical History: Reports: None Musculoskeletal Surgical History: Reports: Amputation Social & Family History - Family History Family Medical History: Unobtainable Cardiac: Reports: [place] Oncologic: Reports: Other (See Below) Other Oncologic Family History: mets - Tobacco Use Smoking Status *Q: Never Smoker Second Hand Smoke Exposure: No - Caffeine Use Caffeine Use: Reports: None - Recreational Drug Use Recreational Drug Use: No - Living Situation & Occupation Living situation: Reports: , with Spouse Occupation: Retired H&P Review of Systems - Review of Systems: Review Of Systems: ROS reveals no pertinent complaints other than HPI. Exam - Exam Exam: See Below - Vital Signs Vital Signs: Last Vital Signs Temp 36.9 C 12/31/17 00:21 Pulse 77 12/31/17 00:21 Resp 16 12/31/17 00:21 BP 147/76 H 12/31/17 00:21 Pulse Ox 90 L 12/31/17 00:21 Weight: 90.083 kg - Exam General: Alert, Oriented HEENT: Conjunctiva Clear Neck: Supple, Trachea Midline Lungs: Clear to Auscultation Cardiovascular: Regular Rate, Regular Rhythm GI/Abdominal Exam: Normal Bowel Sounds, Soft, Non-Tender Extremities: Pedal Edema, Other (right BKA) - Patient Data Lab Results Last 24 hrs: Laboratory Results - last 24 hr 12/30/17 12/30/17 Range/Units 23:17 23:17 WBC 9.0 (5.0-10.0) 10^3/uL RBC 4.35 L (4.6-6.2) 10^6/uL Hgb 10.9 L (14.0-18.0) g/dL Hct 35.9 L (40.0-54.0) % MCV 82.5 (80-100) fL MCH 25.1 L (27.0-34.0) pg MCHC 30.4 L (33.0-35.0) g/dL Plt Count 188 (150-450) 10^3/uL Neut % (Auto) 73.8 (42.2-75.2) % Lymph % (Auto) 15.8 L (20.5-50.1) % [place] % (Auto) 8.4 H (2-8) % Eos % (Auto) 1.6 (1.0-3.0) % Baso % (Auto) 0.4 (0.0-1.0) % Sodium 137 (135-145) mmol/L Potassium 4.2 (3.6-5.0) mmol/L Chloride 102 (101-111) mmol/L Carbon Dioxide 27.0 (21.0-31.0) mmol/L Anion Gap 12.2 BUN 22 H (7-18) mg/dL Creatinine 1.2 (0.6-1.3) mg/dL Est Cr Clr Drug Dosing 54.01 mL/min Estimated GFR (MDRD) 59 BUN/Creatinine Ratio 18.33 Glucose 151 H (74-105) mg/dL Calcium 8.8 (8.4-10.2) mg/dl Total Bilirubin 0.5 (0.2-1.0) mg/dL AST 21 (10-42) IU/L ALT 13 (10-60) IU/L Alkaline Phosphatase 70 (42-121) IU/L Troponin I 0.03 H* (0.00-0.02) ng/ml B-Natriuretic Peptide 3140 H (0-100) pg/ml Total Protein 7.3 (6.7-8.2) g/dl Albumin 3.6 (3.2-5.5) g/dl Globulin 3.7 Albumin/Globulin Ratio 0.97 Result Diagrams: 12/30/17 23:17 12/30/17 23:17 Imaging Impressions Last 24 hrs: mild CHF on CXR, my read Problem List Initiated/Reviewed/Updated: Yes Orders Last 24hrs: Active Orders 24 hr Category Date Time Status Patient Status [ADT] Routine ADT 12/31/17 02:27 Ordered Ambulate [RC] ASDIRECTED Care 12/31/17 02:24 Ordered Blood Glucose Check, Bedside [RC] WITHMEALSANDBED Care 12/31/17 02:24 Ordered Diabetes Education [RC] Click to Edit Care 12/31/17 02:29 Ordered Height and Weight [RC] DAILY Care 12/31/17 02:24 Ordered Intake and Output [RC] QSHIFT Care 12/31/17 02:28 Ordered Oxygen Therapy [RC] PRN Care 12/31/17 02:27 Ordered VTE/DVT Education [RC] PER UNIT ROUTINE Care 12/31/17 02:27 Ordered Vital Signs [RC] Q4H Care 12/31/17 02:27 Ordered 2 Gram Sodium Diet [DIET] Diet 12/31/17 Breakfast Ordered Chest 1V Frontal [CR] Stat Exams 12/30/17 23:15 Taken Aspirin [Low Dose Aspirin EC] Med 12/31/17 09:00 Ordered 81 mg PO DAILY Carvedilol [Carvedilol] Med 12/31/17 08:00 Ordered 12 mg PO BIDMEALS Cyanocobalamin (Vitamin B-12) [Vitamin B-12] Med 12/31/17 09:00 Ordered 2,500 mcg SL DAILY Finasteride [Finasteride] Med 12/31/17 09:00 Ordered 5 mg PO DAILY Furosemide [Lasix] Med 12/31/17 09:00 Ordered 40 mg IVPUSH DAILY Insulin Aspart [NovoLOG] Med 12/31/17 08:00 Ordered See Protocol SUBCUT TIDAC Sacubitril/Valsartan [Entresto 24 mg-26 mg Tablet] Med 12/31/17 09:00 Ordered 24 mg PO BID Tamsulosin HCl [Tamsulosin HCl] Med 12/31/17 21:00 Ordered 0.4 mg PO BEDTIME Warfarin [Coumadin] Med 12/31/17 09:00 Ordered 5 mg PO DAILY atorvaSTATin [Lipitor] Med 12/31/17 21:00 Ordered 10 mg PO BEDTIME Glucose Management Sub Q Reflex [OM.PC] Click To Edit Oth 12/31/17 02:24 Ordered Resuscitation Status Routine Resus Stat 12/31/17 02:24 Ordered Medication Orders Furosemide (Lasix) 40 mg IVPUSH DAILY [facility] Insulin Aspart (Novolog) 0 unit SUBCUT TIDAC [facility]; Protocol Non-Formulary Medication (Aspirin [Low Dose Aspirin Ec]) 81 mg PO DAILY [facility] Non-Formulary Medication (Atorvastatin [Lipitor]) 10 mg PO BEDTIME [facility] Non-Formulary Medication (Carvedilol [Carvedilol]) 12 mg PO BIDMEALS [facility] Non-Formulary Medication (Cyanocobalamin (Vitamin B-12) [Vitamin B-12]) 2,500 mcg SL DAILY [facility] Non-Formulary Medication (Finasteride [Finasteride]) 5 mg PO DAILY [facility] Non-Formulary Medication (Sacubitril/Valsartan [Entresto 24 Mg-26 Mg Tablet]) 24 mg PO BID [facility] Non-Formulary Medication (Tamsulosin Hcl [Tamsulosin Hcl]) 0.4 mg PO BEDTIME [facility] Non-Formulary Medication (Warfarin [Coumadin]) 5 mg PO DAILY [facility] Assessment/Plan Comment:: CHF, systolic, acute on chronic Mild exacerbation - Admit to the general medical floor - Full Telemetry - IV Lasix 40 mg IV daily - GDMT: continue coreg, Entresto - Fluid restriction to 1.5L per day - Salt restriction to 2g per day - Strict I's and O's charting - Daily weights - Will increase dose of oral lasix on discharge DM2, controlled - carb controlled diet - accuchecks AC and HS - ISS - hold metformin Code Status: DONNA
[2017-12-31] MEDS ORDERED: Carvedilol 6.25 MG Tab PO SCH (08:00)
[2017-12-31] MEDS ORDERED: Insulin Aspart 100 Units/ML 3 ML Pen SUBCUT SCH (08:00)
[2017-12-31 08:14] VITALS: BP 130/61
[2017-12-31] MEDS ORDERED: Non-Formulary Medication 1 Each (Warfarin [Coumadin] 5 MG) PO SCH (09:00)
[2017-12-31] MEDS ORDERED: [UNRECOGNIZED DRUG - OTHER] SL SCH (09:00)
[2017-12-31] MEDS ORDERED: Aspirin 81 MG Tab.EC PO SCH (09:00)
[2017-12-31] MEDS ORDERED: [UNRECOGNIZED DRUG - OTHER] PO SCH (09:00)
[2017-12-31] MEDS ORDERED: Furosemide 40 MG/4 ML VIAL IVPUSH SCH (09:00)
[2017-12-31] MEDS ORDERED: SACUBITRIL PO SCH (09:00)
[2017-12-31] MEDS ORDERED: Finasteride 5 MG Tab PO SCH (09:00)
[2017-12-31] MEDS ORDERED: CYANOCOBALAMIN 2500 MCG SL SCH (09:00)
[2017-12-31] MEDS ORDERED: VALSARTAN PO SCH (09:00)
--- NOTE | 2017-12-31 09:54 | PCM.DCSUM1 ---
Discharge Summary - Hospital Course Free Text/Narrative:: 72 yo M with PMH of CHF with reduced EF, CVA, DM controlled, who presents with shortness of breath. Was managed for a mild CHF exacerbation. Improved significantly with IV lasix. On 20 mg lasix at home. His home dose of lasix was increased to 40 mg daily follow up with PCP and CHF clinic. - Discharge Data Discharge Date: 12/31/17 Discharge Disposition: Home, Self-Care 01 Condition: Stable - Patient Instructions Diet: Low Sodium, Diabetic Diet Fluid Restriction: 1500 mL Activity: As Tolerated - Discharge Plan Prescriptions/Med Rec: Furosemide [Lasix] 40 mg PO DAILY 90 Days #90 tablet Home Medications: Home Meds Aspirin [Low Dose Aspirin EC] 81 mg PO DAILY 03/12/14 [History] Carvedilol 12 mg PO BIDMEALS 03/12/14 [History] Cyanocobalamin (Vitamin B-12) [Vitamin B-12] 2,500 mcg SL DAILY 03/12/14 [ History] Finasteride 5 mg PO DAILY 03/12/14 [History] Tamsulosin HCl 0.4 mg PO BEDTIME 03/12/14 [History] atorvaSTATin [Lipitor] 10 mg PO BEDTIME 06/16/14 [History] Warfarin [Coumadin] 5 mg PO DAILY 05/23/17 [History] metFORMIN [Glucophage] 1,000 mg PO BIDMEALS 05/23/17 [History] Sacubitril/Valsartan [Entresto 24 mg-26 mg Tablet] 24 mg PO BID 12/11/17 [ History] Furosemide [Lasix] 40 mg PO DAILY 90 Days #90 tablet 12/31/17 [Rx] Forms: ED Department Discharge Referrals: [email or web address] [Primary Care Provider] - - General Info Date of Service: 12/31/17 Admission Dx/Problem (Free Text: Admission Diagnosis/Problem Admission Diagnosis/Problem Congestive heart failure of unknown etiology Subjective Update: Pt seen and examined at bedside Much better today No new complaints - Review of Systems General: Reports: No Symptoms HEENT: Reports: No Symptoms Pulmonary: Reports: No Symptoms. Denies: Shortness of Breath Cardiovascular: Reports: No Symptoms. Denies: Chest Pain Gastrointestinal: Reports: No Symptoms Genitourinary: Reports: No Symptoms Musculoskeletal: Reports: No Symptoms - Patient Data Vitals - Most Recent: Last Vital Signs Temp 37.2 C 12/31/17 08:13 Pulse 69 12/31/17 08:13 Resp 20 12/31/17 08:13 BP 130/61 12/31/17 08:13 Pulse Ox 98 12/31/17 08:13 Weight - Most Recent: 88.632 kg I&O - Last 24 hours: Intake & Output 12/30/17 12/31/17 12/31/17 22:59 06:59 14:59 Intake Total 228 320 Output Total 1775 550 Balance -1547 -230 Lab Results - Last 24 hrs: Laboratory Results - last 24 hr 12/30/17 12/30/17 Range/Units 23:17 23:17 WBC 9.0 (5.0-10.0) 10^3/uL RBC 4.35 L (4.6-6.2) 10^6/uL Hgb 10.9 L (14.0-18.0) g/dL Hct 35.9 L (40.0-54.0) % MCV 82.5 (80-100) fL MCH 25.1 L (27.0-34.0) pg MCHC 30.4 L (33.0-35.0) g/dL Plt Count 188 (150-450) 10^3/uL Neut % (Auto) 73.8 (42.2-75.2) % Lymph % (Auto) 15.8 L (20.5-50.1) % [place] % (Auto) 8.4 H (2-8) % Eos % (Auto) 1.6 (1.0-3.0) % Baso % (Auto) 0.4 (0.0-1.0) % Sodium 137 (135-145) mmol/L Potassium 4.2 (3.6-5.0) mmol/L Chloride 102 (101-111) mmol/L Carbon Dioxide 27.0 (21.0-31.0) mmol/L Anion Gap 12.2 BUN 22 H (7-18) mg/dL Creatinine 1.2 (0.6-1.3) mg/dL Est Cr Clr Drug Dosing 54.01 mL/min Estimated GFR (MDRD) 59 BUN/Creatinine Ratio 18.33 Glucose 151 H (74-105) mg/dL Calcium 8.8 (8.4-10.2) mg/dl Total Bilirubin 0.5 (0.2-1.0) mg/dL AST 21 (10-42) IU/L ALT 13 (10-60) IU/L Alkaline Phosphatase 70 (42-121) IU/L Troponin I 0.03 H* (0.00-0.02) ng/ml B-Natriuretic Peptide 3140 H (0-100) pg/ml Total Protein 7.3 (6.7-8.2) g/dl Albumin 3.6 (3.2-5.5) g/dl Globulin 3.7 Albumin/Globulin Ratio 0.97 Med Orders - Current: Current Medications Aspirin (Halfprin) 81 mg PO DAILY [facility] Atorvastatin Calcium (Lipitor) 10 mg PO BEDTIME [facility] Carvedilol (Coreg) 12.5 mg PO BIDMEALS [facility] Finasteride (Proscar) 5 mg PO DAILY [facility] Furosemide (Lasix) 40 mg IVPUSH DAILY [facility] Last Admin: 12/31/17 08:42 Dose: 40 mg Insulin Aspart (Novolog) 0 unit SUBCUT TIDAC [facility]; Protocol Last Admin: 12/31/17 08:02 Dose: Not Given Non-Formulary Medication (Cyanocobalamin (Vitamin B-12) [Vitamin B-12]) 2,500 mcg SL DAILY [facility] Non-Formulary Medication (Sacubitril/Valsartan [Entresto 24 Mg-26 Mg Tablet]) 24 mg PO BID [facility] Non-Formulary Medication (Warfarin [Coumadin]) 5 mg PO DAILY [facility] Tamsulosin HCl (Flomax) 0.4 mg PO BEDTIME [facility]GG[facility] Discontinued Medications Furosemide (Lasix) 80 mg IVPUSH NOW ONE Stop: 12/30/17 23:48 Last Admin: 12/30/17 23:52 Dose: 80 mg - Exam General: Reports: Alert, Oriented HEENT: Reports: Pupils Equal Neck: Reports: Supple Lungs: Reports: Clear to Auscultation, Normal Respiratory Effort Cardiovascular: Reports: Regular Rate, Regular Rhythm GI/Abdominal Exam: Normal Bowel Sounds
[2017-12-31] MEDS ORDERED: Tamsulosin 0.4 MG Cap.ER PO SCH (21:00)
[2017-12-31] MEDS ORDERED: atorvaSTATin 10 MG Tab PO SCH (21:00)
== END 2017-12-31 10:55 | disposition home or self-care (01) ==
LOC: DL.ED 23:06 → DL.MS 12-31 00:15 → UNDOADMOB 12-31 00:15 → DL.MS 12-31 02:27
PROVIDERS: ADMIT Hospitalist; ATTEND Hospitalist
DX: I11.0 Hypertensive heart disease with heart failure (principal); I50.23 Acute on chronic systolic (congestive) heart failure; E11.9 Type 2 diabetes mellitus without complications; E78.00 Pure hypercholesterolemia, unspecified; Z79.82 Long term (current) use of aspirin; Z79.84 Long term (current) use of oral hypoglycemic drugs; Z79.01 Long term (current) use of anticoagulants; Z79.899 Other long term (current) drug therapy; Z95.0 Presence of cardiac pacemaker
CPT/HCPCS: 36415; 71045; 80053; 82962; 83880; 84484; 85025; 93005; 96374; 99285; J1940; 96376; G0378

== ENCOUNTER 2019-01-18 11:09 | Emergency (ER) | payer MEDICARE, OTHER ==
[2019-01-18 11:34] VITALS: BP 133/58; PULSE 65
[2019-01-18 12:37] LABS: ANION GAP 13.7
--- NOTE | 2019-01-18 13:31 | EDM.PDOC ---
Scribed by Tabitha Kraus 01/18/19 1322 for Merlyn Caban NP ED HPI GENERAL MEDICAL PROBLEM - General Chief Complaint: General Stated Complaint: EXHAUSTION Time Seen by Provider: 01/18/19 12:10 Source of Information: Reports: Patient, RN, RN Notes Reviewed History Limitations: Reports: No Limitations - History of Present Illness INITIAL COMMENTS - FREE TEXT/NARRATIVE: Patient presents to ER with general mild weakness and wound on left foot plantar ball of foot. He sees the [facility] which did a bone biopsy recently and plan to see them next week for follow up. He is not on any antibiotics. There is an odor to the wound and mild increase in redness per . He has had no falls or injuries. No fevers Onset: Gradual Duration: Getting Worse Location: Reports: Lower Extremity, Left Severity: Moderate Improves with: Reports: None Worsens with: Reports: None Associated Symptoms: Reports: No Other Symptoms Left Feet Pain Score (Numeric/FACES): 10 - Related Data Allergies Allergy/AdvReac Type Severity Reaction Status Date / Time No Known Allergies Allergy Verified 01/18/19 11:21 Home Meds: Home Meds Aspirin [Low Dose Aspirin EC] 81 mg PO DAILY 03/12/14 [History] Carvedilol 12 mg PO BIDMEALS 03/12/14 [History] Cyanocobalamin (Vitamin B-12) [Vitamin B-12] 2,500 mcg SL DAILY 03/12/14 [ History] Finasteride 5 mg PO DAILY 03/12/14 [History] Tamsulosin HCl 0.4 mg PO BEDTIME 03/12/14 [History] atorvaSTATin [Lipitor] 10 mg PO BEDTIME 06/16/14 [History] Warfarin [Coumadin] 5 mg PO DAILY 05/23/17 [History] metFORMIN [Glucophage] 1,000 mg PO BIDMEALS 05/23/17 [History] Sacubitril/Valsartan [Entresto 24 mg-26 mg Tablet] 24 mg PO BID 12/11/17 [ History] Furosemide [Lasix] 40 mg PO DAILY 90 Days #90 tablet 12/31/17 [Rx] Furosemide [Lasix] 20 mg PO QPM #30 tablet 02/09/18 [Rx] Potassium Chloride [Klor-Con M20] 20 meq PO DAILY #30 tab.er 02/09/18 [Rx] Past Medical History HEENT History: Reports: Cataract, Impaired Vision Cardiovascular History: Reports: Heart Failure, High Cholesterol, Hypertension, Pacemaker, Other (See Below) Other Cardiovascular History: Heart Attack, defib/pacemaker Respiratory History: Reports: SOB Gastrointestinal History: Reports: Hiatal Hernia Genitourinary History: Reports: BPH, Renal Calculus Musculoskeletal History: Reports: Other (See Below) Other Musculoskeletal History: right below the knee amputation Neurological History: Reports: CVA Psychiatric History: Reports: None Endocrine/Metabolic History: Reports: Diabetes, Type II Hematologic History: Reports: B12 Deficiency Immunologic History: Reports: None Oncologic (Cancer) History: Reports: None Dermatologic History: Reports: None - Infectious Disease History Infectious Disease History: Reports: Chicken Pox, Measles, Mumps - Past Surgical History HEENT Surgical History: Reports: Adenoidectomy, Cataract Surgery, Tonsillectomy Cardiovascular Surgical History: Reports: None Respiratory Surgical History: Reports: None GI Surgical History: Reports: Appendectomy Male Surgical History: Reports: None Neurological Surgical History: Reports: None Musculoskeletal Surgical History: Reports: Amputation Social & Family History - Family History Family Medical History: Unobtainable Cardiac: Reports: [place] Oncologic: Reports: Other (See Below) Other Oncologic Family History: mets - Caffeine Use Caffeine Use: Reports: None - Living Situation & Occupation Living situation: Reports: , with Spouse Occupation: Retired ED ROS GENERAL - Review of Systems Review Of Systems: ROS reveals no pertinent complaints other than HPI. ED EXAM, GENERAL - Physical Exam Exam: See Below Exam Limited By: No Limitations General Appearance: Alert, WD/WN, No Apparent Distress Respiratory/Chest: No Respiratory Distress, Lungs Clear, Normal Breath Sounds, No Accessory Muscle Use, Chest Non-Tender Cardiovascular: Normal Peripheral Pulses, Regular Rate, Rhythm, No Edema, No Gallop, No JVD, No Murmur, No Rub Peripheral Pulses: 2+: Dorsalis Pedis (L), Dorsalis Pedis (R) Extremities: Other (Right BKA. Left foot slightly warm/red on dorsal foot and 1 cm around the wound. ) Neurological: Alert, Oriented Skin Exam: Other (Left ball of foot has a diabetic ulcer with 3cm x 1cm redness around. Mild pedal edema redenes and warmth. ) Course - Vital Signs Last Recorded V/S: Last Vital Signs Temp 37.2 C 01/18/19 11:33 Pulse 65 01/18/19 11:33 Resp 16 01/18/19 11:33 BP 133/58 L 01/18/19 11:33 Pulse Ox 97 01/18/19 11:33 - Orders/Labs/Meds Labs: Laboratory Tests 01/18/19 01/18/19 01/18/19 Range/Units 11:40 11:40 12:31 WBC 7.0 (5.0-10.0) 10^3/uL RBC 3.80 L (4.6-6.2) 10^6/uL Hgb 10.3 L (14.0-18.0) g/dL Hct 33.0 L (40.0-54.0) % MCV 86.8 D (80-100) fL MCH 27.1 (27.0-34.0) pg MCHC 31.2 L (33.0-35.0) g/dL Plt Count 136 L (150-450) 10^3/uL Sodium 139 (135-145) mmol/L Potassium 4.7 (3.6-5.0) mmol/L Chloride 105 (101-111) mmol/L Carbon Dioxide 25.0 (21.0-31.0) mmol/L Anion Gap 13.7 BUN 25 H (7-18) mg/dL Creatinine 1.3 (0.6-1.3) mg/dL Est Cr Clr Drug Dosing 49.10 mL/min Estimated GFR (MDRD) 54 BUN/Creatinine Ratio 19.23 Glucose 142 H (74-105) mg/dL Calcium 8.7 (8.4-10.2) mg/dl Total Bilirubin 0.5 (0.2-1.0) mg/dL AST 14 (10-42) IU/L ALT 11 (10-60) IU/L Alkaline Phosphatase 58 (42-121) IU/L Total Protein 7.0 (6.7-8.2) g/dl Albumin 3.2 (3.2-5.5) g/dl Globulin 3.8 Albumin/Globulin Ratio 0.84 Urine Color Yellow (YELLOW) Urine Appearance Clear (CLEAR) Urine pH 5.5 (5.0-9.0) Ur Specific [place] 1.015 (1.005-1.030) Urine Protein 30 H (NEGATIVE) Urine Glucose (UA) Negative (NEGATIVE) Urine Ketones Negative (NEGATIVE) Urine Occult Blood Small H (NEGATIVE) Urine Nitrite Negative (NEGATIVE) Urine Bilirubin Negative (NEGATIVE) Urine Urobilinogen 0.2 (0.2-1.0) mg/dL Ur Leukocyte Esterase Negative (NEGATIVE) Urine RBC 0-5 /HPF Urine WBC Not seen (0-5/HPF) /HPF Ur Epithelial Cells Rare (NOT SEEN) /HPF Urine Bacteria Rare (0-FEW/HPF) /HPF - Re-Assessments/Exams Free Text/Narrative Re-Assessment/Exam: 01/18/19 13:20 He has pending wound cultures on his wound; working with the wound clinic with dressing changes by his . Pending bone biopsy. with increased redness; I will place him on antibiotics bactrim and to see his PCP or wound clinic next week as planned. 01/18/19 13:23 Departure - Departure Time of Disposition: 13:25 Disposition: Home, Self-Care 01 Condition: Good Clinical Impression: Wound infection Diabetic foot ulcer Qualifiers: Diabetic foot ulcer location: other Diabetes mellitus type: type 2 Laterality: left Non-pressure ulcer stage: with muscle involvement without evidence of necrosis Qualified Code(s): E11.621 - Type 2 diabetes mellitus with foot ulcer; L97.525 - Non-pressure chronic ulcer of other part of left foot with muscle involvement without evidence of necrosis Diabetes mellitus type II, controlled Qualifiers: Diabetes mellitus complication status: with skin complications - Discharge Information *PRESCRIPTION DRUG MONITORING PROGRAM REVIEWED*: Not Applicable *COPY OF PRESCRIPTION DRUG MONITORING REPORT IN PATIENT PATRICK: Not Applicable Instructions: Type 2 Diabetes Mellitus, Diagnosis, Adult, Wound Infection Forms: ED Department Discharge Additional Instructions: Bactrim antibiotic twice a day. See your wound clinic next week as planned; let them know I have placed him on antibiotics. I have read and agree with the documentation that has been completed regarding this visit. By signing this record, I attest that the documentation was completed in my physical presence and is an accurate record of the encounter.
== END 2019-01-18 13:40 | disposition home or self-care (01) ==
LOC: DL.ED 11:09
DX: E11.621 Type 2 diabetes mellitus with foot ulcer (principal); L97.525 Non-pressure chronic ulcer of other part of left foot with muscle involvement without evidence of necrosis; L08.9 Local infection of the skin and subcutaneous tissue, unspecified; E11.36 Type 2 diabetes mellitus with diabetic cataract; E78.00 Pure hypercholesterolemia, unspecified; I11.0 Hypertensive heart disease with heart failure; I50.9 Heart failure, unspecified; N40.0 Benign prostatic hyperplasia without lower urinary tract symptoms; H26.9 Unspecified cataract; Z79.82 Long term (current) use of aspirin; Z86.73 Personal history of transient ischemic attack (TIA), and cerebral infarction without residual deficits; Z79.899 Other long term (current) drug therapy; Z79.84 Long term (current) use of oral hypoglycemic drugs; Z79.01 Long term (current) use of anticoagulants
CPT/HCPCS: 36415; 80053; 81001; 85027; 99283

== ENCOUNTER 2019-05-24 19:27 | Observation (INO) | payer MEDICARE, OTHER ==
[2019-05-24 21:16] LABS: ANION GAP 13.4
[2019-05-24] MEDS ORDERED: Furosemide 40 MG/4 ML VIAL IVPUSH ONE (21:42)
[2019-05-24] MEDS ORDERED: Ondansetron 4 MG Tab.DIS PO PRN (22:44)
[2019-05-24] MEDS ORDERED: Acetaminophen 325 MG Tab PO PRN (22:44)
[2019-05-24] MEDS ORDERED: Ondansetron 4 MG/2 ML SDV IVPUSH PRN (22:44)
--- NOTE | 2019-05-24 22:54 | PCM.HP ---
H&P History of Present Illness - General Date of Service: 05/24/19 Admit Problem/Dx: Admission Diagnosis/Problem Admission Diagnosis/Problem CHF, Congestive heart failure Source of Information: Patient, Family, Old Records - History of Present Illness Initial Comments - Free Text/Narative: Mr. [id number] male with medical history significant for diabetes mellitus , CAD, hypertension, CVA, PAD status post right BKA secondary to diabetic foot infection, recent left big toe amputation on antibiotics, chronic systolic heart failure, dyslipidemia, osteomyelitis, and left carotid stenosis to the ED with complaints of shortness of breath. Patient reports that he has had progressively worsening shortness of breath for the past 1 week. reports that shortness of breath has acutely worsened over the past 24 hours. Patient reports that he cannot get out of his ED gurney to his wheelchair which is about 3 steps away from the gurney and short of breath. He denies worsening lower extremity edema. Reports orthopenia but denies PND. Reports that he drinks 3 20 oz-bottles of water daily. Reports adherence to medications and denies using excess salt. Reports about 6 loose stools daily since he started antibiotics. Denies fevers, chills, chest pain, n/v/d/c, dysuria, or any new other new symptoms. - Related Data Allergies/Adverse Reactions: Allergies Allergy/AdvReac Type Severity Reaction Status Date / Time No Known Allergies Allergy Verified 05/24/19 20:42 Home Medications: Home Meds Aspirin [Low Dose Aspirin EC] 81 mg PO .MON,WED,FRI 03/12/14 [History] Cyanocobalamin (Vitamin B-12) [Vitamin B-12] 2,500 mcg SL DAILY 03/12/14 [ History] Finasteride 5 mg PO DAILY 03/12/14 [History] Tamsulosin HCl 0.4 mg PO BEDTIME 03/12/14 [History] carvediloL [Carvedilol] 12 mg PO BIDMEALS 03/12/14 [History] atorvaSTATin [Lipitor] 10 mg PO BEDTIME 06/16/14 [History] Warfarin [Coumadin] 5 mg PO .SUN,TUE,WED,FRI,SAT 05/23/17 [History] metFORMIN [Glucophage] 1,000 mg PO BIDMEALS PRN 05/23/17 [History] Sacubitril/Valsartan [Entresto 24 mg-26 mg Tablet] 1 tab PO BID 12/11/17 [ History] Furosemide [Lasix] 40 mg PO DAILY 90 Days #90 tablet 12/31/17 [Rx] Furosemide [Lasix] 20 mg PO QPM #30 tablet 02/09/18 [Rx] Potassium Chloride [Klor-Con M20] 20 meq PO DAILY #30 tab.er 02/09/18 [Rx] Warfarin [Coumadin] 7.5 mg PO .SAT,01/21/19 [History] Past Medical History HEENT History: Reports: Cataract, Impaired Vision Cardiovascular History: Reports: Heart Failure, High Cholesterol, Hypertension, Pacemaker, Other (See Below) Other Cardiovascular History: Heart Attack, defib/pacemaker Respiratory History: Reports: SOB Gastrointestinal History: Reports: Hiatal Hernia Genitourinary History: Reports: BPH, Renal Calculus Musculoskeletal History: Reports: Other (See Below) Other Musculoskeletal History: right below the knee amputation Neurological History: Reports: CVA Psychiatric History: Reports: None Endocrine/Metabolic History: Reports: Diabetes, Type II Hematologic History: Reports: B12 Deficiency Immunologic History: Reports: None Oncologic (Cancer) History: Reports: None Dermatologic History: Reports: None - Infectious Disease History Infectious Disease History: Reports: None - Past Surgical History Head Surgeries/Procedures: Reports: None HEENT Surgical History: Reports: Adenoidectomy, Cataract Surgery, Tonsillectomy Cardiovascular Surgical History: Reports: None Respiratory Surgical History: Reports: None GI Surgical History: Reports: Appendectomy Male Surgical History: Reports: None Neurological Surgical History: Reports: None Musculoskeletal Surgical History: Reports: Amputation Social & Family History - Family History Family Medical History: Unobtainable Cardiac: Reports: [place] Oncologic: Reports: Other (See Below) Other Oncologic Family History: mets - Tobacco Use Smoking Status *Q: Former Smoker Years of Tobacco use: 30 Packs/Tins Daily: 0 Used Tobacco, but Quit: Yes Month/Year Tobacco Last Used: 0 - Caffeine Use Caffeine Use: Reports: Soda - Recreational Drug Use Recreational Drug Use: No - Living Situation & Occupation Living situation: Reports: , with Spouse Occupation: Retired H&P Review of Systems - Review of Systems: Review Of Systems: Comprehensive ROS is negative, except as noted in HPI. Exam - Exam Exam: See Below - Vital Signs Vital Signs: Last Vital Signs Temp 97.8 F 05/24/19 20:05 Pulse 75 05/24/19 20:05 Resp 18 05/24/19 20:05 BP 111/55 L 05/24/19 20:05 Pulse Ox 97 05/24/19 20:05 Weight: 188 lb - Exam General: Alert, Oriented, Cooperative Neck: Supple Lungs: Clear to Auscultation, Normal Respiratory Effort, Crackles Cardiovascular: Regular Rate, Regular Rhythm GI/Abdominal Exam: Normal Bowel Sounds, Soft, Non-Tender, No Distention Extremities: Other (Rigth BKA, left big toe amputation with area of necrotic scab and mild discharge. Family and patient report unchanged compared to when seen by podiatry. ) Skin: Warm, Dry, Intact Neuro Extensive - Mental Status: Alert, Oriented x3, Normal Mood/Affect, Normal Cognition Psychiatric: Alert, Normal Affect, Normal Mood - Patient Data Lab Results Last 24 hrs: Laboratory Results - last 24 hr 05/24/19 05/24/19 05/24/19 Range/Units 20:45 20:45 20:45 WBC 7.4 (5.0-10.0) 10^3/uL RBC 3.85 L (4.6-6.2) 10^6/uL Hgb 9.3 L D (14.0-18.0) g/dL Hct 31.7 L (40.0-54.0) % MCV 82.3 (80-100) fL MCH 24.2 L (27.0-34.0) pg MCHC 29.3 L (33.0-35.0) g/dL Plt Count 178 (150-450) 10^3/uL Neut % (Auto) 79.3 H (42.2-75.2) % Lymph % (Auto) 11.1 L (20.5-50.1) % [place] % (Auto) 7.7 (2-8) % Eos % (Auto) 1.5 (1.0-3.0) % Baso % (Auto) 0.4 (0.0-1.0) % PT 14.8 H (9.0-12.0) SEC INR 1.5 H (0.9-1.2) Sodium 134 L (135-145) mmol/L Potassium 4.4 (3.6-5.0) mmol/L Chloride 103 (101-111) mmol/L Carbon Dioxide 22.0 (21.0-31.0) mmol/L Anion Gap 13.4 BUN 26 H (7-18) mg/dL Creatinine 1.6 H (0.6-1.3) mg/dL Est Cr Clr Drug Dosing 39.89 mL/min Estimated GFR (MDRD) 42 BUN/Creatinine Ratio 16.25 Glucose 157 H (74-105) mg/dL Lactic Acid (0.5-2.0) mmol/L Calcium 8.3 L (8.4-10.2) mg/dl Total Bilirubin 0.5 (0.2-1.0) mg/dL AST 40 (10-42) IU/L ALT 32 (10-60) IU/L Alkaline Phosphatase 65 (42-121) IU/L Troponin I 0.04 H* (0.00-0.02) ng/ml B-Natriuretic Peptide 3050 H (0-100) pg/ml Total Protein 6.8 (6.7-8.2) g/dl Albumin 2.7 L (3.2-5.5) g/dl Globulin 4.1 Albumin/Globulin Ratio 0.66 02/23/20 Range/Units 20:45 WBC (5.0-10.0) 10^3/uL RBC (4.6-6.2) 10^6/uL Hgb (14.0-18.0) g/dL Hct (40.0-54.0) % MCV (80-100) fL MCH (27.0-34.0) pg MCHC (33.0-35.0) g/dL Plt Count (150-450) 10^3/uL Neut % (Auto) (42.2-75.2) % Lymph % (Auto) (20.5-50.1) % [place] % (Auto) (2-8) % Eos % (Auto) (1.0-3.0) % Baso % (Auto) (0.0-1.0) % PT (9.0-12.0) SEC INR (0.9-1.2) Sodium (135-145) mmol/L Potassium (3.6-5.0) mmol/L Chloride (101-111) mmol/L Carbon Dioxide (21.0-31.0) mmol/L Anion Gap BUN (7-18) mg/dL Creatinine (0.6-1.3) mg/dL Est Cr Clr Drug Dosing mL/min Estimated GFR (MDRD) BUN/Creatinine Ratio Glucose (74-105) mg/dL Lactic Acid 2.0 (0.5-2.0) mmol/L Calcium (8.4-10.2) mg/dl Total Bilirubin (0.2-1.0) mg/dL AST (10-42) IU/L ALT (10-60) IU/L Alkaline Phosphatase (42-121) IU/L Troponin I (0.00-0.02) ng/ml B-Natriuretic Peptide (0-100) pg/ml Total Protein (6.7-8.2) g/dl Albumin (3.2-5.5) g/dl Globulin Albumin/Globulin Ratio Result Diagrams: 05/24/19 20:45 05/24/19 20:45 *Q Meaningful Use (ADM) - VTE *Q VTE Anticoagulation Contraindications: Alternative TX Request PT - Problem List (1) Acute systolic congestive heart failure SNOMED Code(s): 563993668, 634517134 ICD Code: I50.21 - ACUTE SYSTOLIC (CONGESTIVE) HEART FAILURE Status: Acute Current Visit: Yes (2) Diabetes mellitus type II, controlled SNOMED Code(s): 45876218, 590265891 ICD Code: E11.9 - TYPE 2 DIABETES MELLITUS WITHOUT COMPLICATIONS Status: Acute Current Visit: No (3) S/P BKA (below knee amputation) unilateral SNOMED Code(s): 502863852, 25435603, 939745413 ICD Code: Z89.519 - ACQUIRED ABSENCE OF UNSPECIFIED LEG BELOW KNEE Status: Acute Current Visit: No (4) Wound infection SNOMED Code(s): 11289729 ICD Code: T14.8XXA - OTHER INJURY OF UNSPECIFIED BODY REGION, INITIAL ENCOUNTER; L08.9 - LOCAL INFECTION OF THE SKIN AND SUBCUTANEOUS TISSUE, UNSP Status: Acute Current Visit: No (5) Chronic anticoagulation SNOMED Code(s): 851914528 ICD Code: Z79.01 - NURSING HOME (CURRENT) USE OF ANTICOAGULANTS Status: Chronic Current Visit: No Problem List Initiated/Reviewed/Updated: Yes Orders Last 24hrs: Active Orders 24 hr Category Date Time Status Admission Diagnosis [ADT] Urgent ADT 05/24/19 22:26 Ordered Admission Status [Patient Status] [ADT] Routine ADT 05/24/19 22:26 Active EKG 12 Lead [EKG Documentation Completion] [RC] ROUTINE Care 05/24/19 20:07 Active Intake and Output [RC] QSHIFT Care 05/24/19 22:45 Ordered Oxygen Therapy [RC] PRN Care 05/24/19 22:45 Ordered Up With Assistance [RC] ASDIRECTED Care 05/24/19 22:44 Ordered VTE/DVT Education [RC] PER UNIT ROUTINE Care 05/24/19 22:45 Ordered Vital Signs [RC] Q4H Care 05/24/19 22:45 Ordered 2 Gram Sodium Diet [DIET] Diet 05/24/19 Breakfast Ordered Consistent Carbohydrate Diet [DIET] Diet 05/24/19 Breakfast Ordered CLOSTRIDIUM DIFFICILE TOX RFLX [MREF] Routine Lab 05/24/19 22:47 Ordered CULTURE BLOOD [BC] Stat Lab 05/24/19 20:45 Received Acetaminophen [Tylenol] Med 05/24/19 22:44 Ordered 650 mg PO Q4H PRN Ondansetron [Zofran ODT] Med 05/24/19 22:44 Ordered 4 mg PO Q6H PRN Ondansetron [Zofran] Med 05/24/19 22:44 Ordered 4 mg IVPUSH Q6H PRN Anticoagulation Contraindications VTE [AST] Per Unit Oth 05/24/19 22:44 Ordered Routine Isolation [COMM] Stat Oth 05/24/19 22:48 Ordered Resuscitation Status Routine Resus Stat 05/24/19 22:44 Ordered Medication Orders Acetaminophen (Tylenol) 650 mg PO Q4H PRN PRN Reason: Pain (mild 1-3) Ondansetron HCl (Zofran) 4 mg IVPUSH Q6H PRN PRN Reason: Nausea/Vomiting Ondansetron HCl (Zofran Odt) 4 mg PO Q6H PRN PRN Reason: nausea, able to take PO Assessment/Plan Comment:: #Acute on chronic systolic heart failure: Reports progressively worsening shortness of breath. Uncertain about weight changes. CXR shows pulmonary congestion. BNP elevated. - IV lasix - Daily weights - 1500 cc fluid restrictions - Elevate lower extremities when laying down or sitting. #History osteomyelitis: #S/p Left toe amputation: Patient and family report that they were seen by podiatry this past Saturday and wound has no significant changes compared to then. - On terminal superintendent Zosyn. - Will continue antibiotics. - Has follow up with podiatry on 06/01. #Diarrhea: concern for C diff. Started after antibiotics. - Rule out C diff. #DM II: poorly controlled with repeated amputations. - Continue insulin and SSI with hypoglycemia protocol. #Dyslipidemia: Continue home medications. #History of DVT on chronic anticoagulation with warfarin - Warfarin, pharmacy to dose. PPx: DVT: Warfarin GI: Carb consistent diet; Low sodium.
[2019-05-24] MEDS ORDERED: Piperacillin/Tazobactam 3.375 GM in Sodium Chloride 0.9% 100 ML IV SCH (23:15)
[2019-05-24] MEDS ORDERED: metFORMIN 500 MG Tab PO PRN (23:20)
[2019-05-25] MEDS: Potassium Chloride 10 MEQ Tab.ER PO SCH ×2 (01:46→10:23)
[2019-05-25] MEDS ORDERED: Piperacillin/Tazobactam 3.375 GM in Sodium Chloride 0.9% 100 ML IV SCH (06:00)
[2019-05-25] MEDS ORDERED: SACUBITRIL PO SCH (09:00)
[2019-05-25] MEDS ORDERED: Furosemide 40 MG/4 ML VIAL IVPUSH SCH (09:00)
[2019-05-25] MEDS ORDERED: VALSARTAN PO SCH (09:00)
[2019-05-25] MEDS ORDERED: [UNRECOGNIZED DRUG - OTHER] PO SCH (09:00)
--- NOTE | 2019-05-25 09:31 | PCM.PN ---
- General Info Date of Service: 05/25/19 Admission Dx/Problem (Free Text): Admission Diagnosis/Problem Admission Diagnosis/Problem CHF, Congestive heart failure Subjective Update: No acute events overnight. Patient reports he feels "pretty good." However, at bedside reports patient is "not doing so good." He reports an episode of diarrhea since admission, however stool looked soft and holding up on the side of the specimen collection hat on exam. Reports shortness of breath is improving. Patient denies cough, chest pain, n/v, dysuria, hematuria, or any acute symptoms. Functional Status: Reports: Tolerating Diet - Review of Systems General: Reports: Weakness Systems Review Comment:: As per subjective update above. - Patient Data Vitals - Most Recent: Last Vital Signs Temp 98 F 05/24/19 22:45 Pulse 78 05/24/19 22:45 Resp 16 05/24/19 22:45 BP 127/67 05/24/19 22:45 Pulse Ox 95 05/24/19 22:45 Weight - Most Recent: 180 lb I&O - Last 24 Hours: Intake & Output 05/24/19 05/25/19 05/25/19 22:59 06:59 14:59 Intake Total 192 350 Output Total 500 500 Balance -308 -150 Lab Results Last 24 Hours: Laboratory Results - last 24 hr 05/24/19 05/24/19 05/24/19 Range/Units 20:45 20:45 20:45 WBC 7.4 (5.0-10.0) 10^3/uL RBC 3.85 L (4.6-6.2) 10^6/uL Hgb 9.3 L D (14.0-18.0) g/dL Hct 31.7 L (40.0-54.0) % MCV 82.3 (80-100) fL MCH 24.2 L (27.0-34.0) pg MCHC 29.3 L (33.0-35.0) g/dL Plt Count 178 (150-450) 10^3/uL Neut % (Auto) 79.3 H (42.2-75.2) % Lymph % (Auto) 11.1 L (20.5-50.1) % [place] % (Auto) 7.7 (2-8) % Eos % (Auto) 1.5 (1.0-3.0) % Baso % (Auto) 0.4 (0.0-1.0) % PT 14.8 H (9.0-12.0) SEC INR 1.5 H (0.9-1.2) Sodium 134 L (135-145) mmol/L Potassium 4.4 (3.6-5.0) mmol/L Chloride 103 (101-111) mmol/L Carbon Dioxide 22.0 (21.0-31.0) mmol/L Anion Gap 13.4 BUN 26 H (7-18) mg/dL Creatinine 1.6 H (0.6-1.3) mg/dL Est Cr Clr Drug Dosing 39.89 mL/min Estimated GFR (MDRD) 42 BUN/Creatinine Ratio 16.25 Glucose 157 H (74-105) mg/dL POC Glucose (83-110) mg/dl Lactic Acid (0.5-2.0) mmol/L Calcium 8.3 L (8.4-10.2) mg/dl Total Bilirubin 0.5 (0.2-1.0) mg/dL AST 40 (10-42) IU/L ALT 32 (10-60) IU/L Alkaline Phosphatase 65 (42-121) IU/L Troponin I 0.04 H* (0.00-0.02) ng/ml B-Natriuretic Peptide 3050 H (0-100) pg/ml Total Protein 6.8 (6.7-8.2) g/dl Albumin 2.7 L (3.2-5.5) g/dl Globulin 4.1 Albumin/Globulin Ratio 0.66 05/24/19 05/25/19 Range/Units 20:45 07:40 WBC (5.0-10.0) 10^3/uL RBC (4.6-6.2) 10^6/uL Hgb (14.0-18.0) g/dL Hct (40.0-54.0) % MCV (80-100) fL MCH (27.0-34.0) pg MCHC (33.0-35.0) g/dL Plt Count (150-450) 10^3/uL Neut % (Auto) (42.2-75.2) % Lymph % (Auto) (20.5-50.1) % [place] % (Auto) (2-8) % Eos % (Auto) (1.0-3.0) % Baso % (Auto) (0.0-1.0) % PT (9.0-12.0) SEC INR (0.9-1.2) Sodium (135-145) mmol/L Potassium (3.6-5.0) mmol/L Chloride (101-111) mmol/L Carbon Dioxide (21.0-31.0) mmol/L Anion Gap BUN (7-18) mg/dL Creatinine (0.6-1.3) mg/dL Est Cr Clr Drug Dosing mL/min Estimated GFR (MDRD) BUN/Creatinine Ratio Glucose (74-105) mg/dL POC Glucose 98 (83-110) mg/dl Lactic Acid 2.0 (0.5-2.0) mmol/L Calcium (8.4-10.2) mg/dl Total Bilirubin (0.2-1.0) mg/dL AST (10-42) IU/L ALT (10-60) IU/L Alkaline Phosphatase (42-121) IU/L Troponin I (0.00-0.02) ng/ml B-Natriuretic Peptide (0-100) pg/ml Total Protein (6.7-8.2) g/dl Albumin (3.2-5.5) g/dl Globulin Albumin/Globulin Ratio Med Orders - Current: Current Medications Acetaminophen (Tylenol) 650 mg PO Q4H PRN PRN Reason: Pain (mild 1-3) Aspirin (Halfprin) 81 mg PO MoWeFr@0800 [facility] Atorvastatin Calcium (Lipitor) 10 mg PO BEDTIME [facility] Carvedilol (Coreg) 12 mg PO BIDMEALS [facility] Cyanocobalamin (Vitamin B12) 2,500 mcg PO DAILY [facility] Finasteride (Proscar) 5 mg PO DAILY [facility] Furosemide (Lasix) 40 mg IVPUSH DAILY [facility] Piperacillin Sod/Tazobactam (Sod 3.375 gm/ Sodium Chloride) 100 mls @ 200 mls/ hr IV Q8H [facility] Last Admin: 05/25/19 06:07 Dose: 200 mls/hr Insulin Human Lispro (Humalog) 0 unit SUBCUT ACBED [facility]; Protocol Metformin HCl (Glucophage) 1,000 mg PO BIDMEALS PRN PRN Reason: Blood Glucose Non-Formulary Medication (Sacubitril/Valsartan [Entresto 24 Mg-26 Mg Tablet]) 1 tab PO BID [facility] Ondansetron HCl (Zofran) 4 mg IVPUSH Q6H PRN PRN Reason: Nausea/Vomiting Ondansetron HCl (Zofran Odt) 4 mg PO Q6H PRN PRN Reason: nausea, able to take PO Potassium Chloride (Klor-Con 10) 20 meq PO DAILY [facility] Last Admin: 05/25/19 01:46 Dose: Not Given Tamsulosin HCl (Flomax) 0.4 mg PO BEDTIME [facility] Warfarin Sodium (Pharmacy To Dose - Warfarin) 1 dose .XX ASDIRECTED [facility] Discontinued Medications Furosemide (Lasix) 40 mg IVPUSH NOW ONE Stop: 05/24/19 21:43 Last Admin: 05/24/19 22:07 Dose: 40 mg Piperacillin Sod/Tazobactam (Sod 3.375 gm/ Sodium Chloride) 100 mls @ 200 mls/ hr IV Q6H [facility] Last Infusion: 05/25/19 01:08 Dose: Infused - Exam General: Alert, Oriented HEENT: Pupils Equal, Pupils Reactive, Mucous Membr. Moist/[place] Neck: Supple Lungs: Clear to Auscultation, Normal Respiratory Effort Cardiovascular: Regular Rate GI/Abdominal Exam: Normal Bowel Sounds, Soft, Non-Tender Extremities: Other (Right BKA, left great toe amputation, LLE edema, improving. ) Skin: Warm, Dry, Intact Neurological: No New Focal Deficit Psy/Mental Status: Alert, Normal Affect, Normal Mood Sepsis Event Note - Evaluation Sepsis Screening Result: No Definite Risk - Focused Exam Vital Signs: Vital Signs Temp Pulse Resp BP Pulse Ox 05/24/19 22:45 98 F 78 16 127/67 95 Date Exam was Performed: 05/25/19 Time Exam was Performed: 09:26 - Problem List & Annotations (1) Acute systolic congestive heart failure SNOMED Code(s): 125686311, 419390290 Code(s): I50.21 - ACUTE SYSTOLIC (CONGESTIVE) HEART FAILURE Status: Acute Current Visit: Yes (2) Diabetes mellitus type II, controlled SNOMED Code(s): 98600226, 777490439 Code(s): E11.9 - TYPE 2 DIABETES MELLITUS WITHOUT COMPLICATIONS Status: Acute Current Visit: No (3) S/P BKA (below knee amputation) unilateral SNOMED Code(s): 667766045, 01143101, 180533414 Code(s): Z89.519 - ACQUIRED ABSENCE OF UNSPECIFIED LEG BELOW KNEE Status: Acute Current Visit: No (4) Wound infection SNOMED Code(s): 76993128 Code(s): T14.8XXA - OTHER INJURY OF UNSPECIFIED BODY REGION, INITIAL ENCOUNTER; L08.9 - LOCAL INFECTION OF THE SKIN AND SUBCUTANEOUS TISSUE, UNSP Status: Acute Current Visit: No (5) Chronic anticoagulation SNOMED Code(s): 732547549 Code(s): Z79.01 - HALFWAY (CURRENT) USE OF ANTICOAGULANTS Status: Chronic Current Visit: No - Problem List Review Problem List Initiated/Reviewed/Updated: Yes - My Orders Last 24 Hours: My Active Orders 05/24/19 22:44 Up With Assistance [RC] ASDIRECTED Acetaminophen [Tylenol] 650 mg PO Q4H PRN Ondansetron [Zofran ODT] 4 mg PO Q6H PRN Ondansetron [Zofran] 4 mg IVPUSH Q6H PRN Anticoagulation Contraindications VTE [AST] Per Unit Routine Resuscitation Status Routine 05/24/19 22:45 Intake and Output [RC] QSHIFT Oxygen Therapy [RC] PRN VTE/DVT Education [RC] PER UNIT ROUTINE Vital Signs [RC] 00,04,08,12,16,20 05/24/19 22:48 Isolation [COMM] Stat 05/24/19 23:15 Pharmacy to Dose - Warfarin 1 dose .XX ASDIRECTED 05/24/19 23:20 metFORMIN [Glucophage] 1,000 mg PO BIDMEALS PRN 05/24/19 23:30 Potassium Chloride [Klor-Con 10] 20 meq PO DAILY 05/25/19 06:00 Piperacillin/Tazobactam [Zosyn] 3.375 gm Sodium Chloride 0.9% [Normal Saline] 100 ml IV Q8H 05/25/19 07:00 Insulin Lispro [HumaLOG] See Protocol SUBCUT ACBED 05/25/19 08:00 Aspirin [Halfprin] 81 mg PO MoWeFr@0800 carvediloL [Coreg] 12 mg PO BIDMEALS 05/25/19 08:31 BASIC METABOLIC PANEL,BMP [CHEM] Routine TROPONIN I [CHEM] Routine 05/25/19 09:00 Cyanocobalamin (Vitamin B12) [Vitamin B12] 2,500 mcg PO DAILY Finasteride [Proscar] 5 mg PO DAILY Furosemide [Lasix] 40 mg IVPUSH DAILY Sacubitril/Valsartan [Entresto 24 mg-26 mg Tablet] 1 tab PO BID 05/25/19 21:00 Tamsulosin [Flomax] 0.4 mg PO BEDTIME atorvaSTATin [Lipitor] 10 mg PO BEDTIME - Plan Plan:: #Acute on chronic systolic heart failure: Improving. Reported progressively worsening shortness of breath. Uncertain about weight changes. CXR shows pulmonary congestion. BNP elevated. - IV lasix - Daily weights - 1500 cc fluid restrictions - Elevate lower extremities when laying down or sitting. #Elevated troponin: Patient with troponin of 0.04. Likely related to CKD vs NSTEMI. - Repeat troponin. #History osteomyelitis: #S/p Left toe amputation: Patient and family report that they were seen by podiatry this past Saturday and wound has no significant changes compared to then. - On termite exterminator helper Zosyn. - Will continue antibiotics. - Has follow up with podiatry on 06/01. #Diarrhea: Stool this morning was soft but not watery or loose. There was initial concern for C diff given that diarrhea had started after antibiotics and patient was reporting loose stools. - discontinue C diff test/ #DM II: poorly controlled with repeated amputations. - Continue insulin and SSI with hypoglycemia protocol. #Dyslipidemia: Continue home medications. #History of DVT on chronic anticoagulation with warfarin - Warfarin, pharmacy to dose. PPx: DVT: Warfarin GI: Carb consistent diet; Low sodium.
[2019-05-25 09:52] LABS: ANION GAP 13.9
[2019-05-25] MEDS: Insulin Lispro 100 Units/ML 3 ML Vial SUBCUT SCH ×2 (10:11→12:28)
[2019-05-25] MEDS: Carvedilol 6.25 MG Tab PO SCH ×2 (10:13→12:32)
[2019-05-25] MEDS: Finasteride 5 MG Tab PO SCH ×2 (10:15→12:34)
[2019-05-25] MEDS: Aspirin 81 MG Tab.EC PO SCH ×2 (10:16→12:34)
[2019-05-25] MEDS: Cyanocobalamin (Vitamin B12) 1,000 MCG Tab PO SCH ×2 (10:17→12:35)
--- NOTE | 2019-05-25 10:28 | PCM.DCSUM1 ---
Discharge Summary - Hospital Course Free Text/Narrative:: Mr. [id number] male with medical history significant for diabetes mellitus , CAD, hypertension, CVA, PAD status post right BKA secondary to diabetic foot infection, recent left big toe amputation on antibiotics, chronic systolic heart failure, dyslipidemia, osteomyelitis, and left carotid stenosis who was admitted for acute on chronic systolic heart failure. Patient's troponin on presentation was 0.04. Had on IV Lasix. This morning, patient reports that shortness of breath is improved but not back to baseline. Repeat troponin came back at 0.06. Patient is being transferred to [place] for further management. Dr. Romo is accepting provider. HPI Initial Comments: Mr. [id number] male with medical history significant for diabetes mellitus , CAD, hypertension, CVA, PAD status post right BKA secondary to diabetic foot infection, recent left big toe amputation on antibiotics, chronic systolic heart failure, dyslipidemia, osteomyelitis, and left carotid stenosis to the ED with complaints of shortness of breath. Patient reports that he has had progressively worsening shortness of breath for the past 1 week. reports that shortness of breath has acutely worsened over the past 24 hours. Patient reports that he cannot get out of his ED gurney to his wheelchair which is about 3 steps away from the gurney and short of breath. He denies worsening lower extremity edema. Reports orthopenia but denies PND. Reports that he drinks 3 20 oz-bottles of water daily. Reports adherence to medications and denies using excess salt. Reports about 6 loose stools daily since he started antibiotics. Denies fevers, chills, chest pain, n/v/d/c, dysuria, or any new other new symptoms. Diagnosis: Stroke: No - Discharge Data Discharge Date: 05/25/19 Discharge Disposition: DC/Tfer to Acute Hospital 02 Condition: Fair - Referral to Home Health Primary Care Physician: Joesph Rasmussen MD - Discharge Diagnosis/Problem(s) (1) Acute systolic congestive heart failure SNOMED Code(s): 531784173, 982529878 ICD Code: I50.21 - ACUTE SYSTOLIC (CONGESTIVE) HEART FAILURE Status: Acute Current Visit: Yes (2) Diabetes mellitus type II, controlled SNOMED Code(s): 66546957, 121289801 ICD Code: E11.9 - TYPE 2 DIABETES MELLITUS WITHOUT COMPLICATIONS Status: Acute Current Visit: No (3) S/P BKA (below knee amputation) unilateral SNOMED Code(s): 916725947, 42870808, 169592117 ICD Code: Z89.519 - ACQUIRED ABSENCE OF UNSPECIFIED LEG BELOW KNEE Status: Acute Current Visit: No (4) Wound infection SNOMED Code(s): 27360506 ICD Code: T14.8XXA - OTHER INJURY OF UNSPECIFIED BODY REGION, INITIAL ENCOUNTER; L08.9 - LOCAL INFECTION OF THE SKIN AND SUBCUTANEOUS TISSUE, UNSP Status: Acute Current Visit: No (5) Chronic anticoagulation SNOMED Code(s): 330121491 ICD Code: Z79.01 - GROUP HOME (CURRENT) USE OF ANTICOAGULANTS Status: Chronic Current Visit: No - Discharge Plan *PRESCRIPTION DRUG MONITORING PROGRAM REVIEWED*: Not Applicable *COPY OF PRESCRIPTION DRUG MONITORING REPORT IN PATIENT PATRICK: Not Applicable Home Medications: Home Meds Aspirin [Low Dose Aspirin EC] 81 mg PO .SAT,SAT,Sat03/12/14 [History] Cyanocobalamin (Vitamin B-12) [Vitamin B-12] 2,500 mcg SL DAILY 03/12/14 [ History] Finasteride 5 mg PO DAILY 03/12/14 [History] Tamsulosin HCl 0.4 mg PO BEDTIME 03/12/14 [History] carvediloL [Carvedilol] 12 mg PO BIDMEALS 03/12/14 [History] atorvaSTATin [Lipitor] 10 mg PO BEDTIME 06/16/14 [History] Warfarin [Coumadin] 5 mg PO .SAT,SAT,SAT,SAT,SAT 05/23/17 [History] metFORMIN [Glucophage] 1,000 mg PO BIDMEALS PRN 05/23/17 [History] Sacubitril/Valsartan [Entresto 24 mg-26 mg Tablet] 1 tab PO BID 12/11/17 [ History] Furosemide [Lasix] 40 mg PO DAILY 90 Days #90 tablet 12/31/17 [Rx] Furosemide [Lasix] 20 mg PO QPM #30 tablet 02/09/18 [Rx] Potassium Chloride [Klor-Con M20] 20 meq PO DAILY #30 tab.er 02/09/18 [Rx] Warfarin [Coumadin] 7.5 mg PO .SAT,01/21/19 [History] Piperacillin/Tazobactam [Zosyn] 3.375 gm IV Q8H vial 05/25/19 [Rx] Oxygen Therapy Mode: Room Air Forms: ED Department Discharge Referrals: PCP,Unobtain [Ordering Only Provider] - - Discharge Summary/Plan Comment DC Time >30 min.: Yes - General Info Date of Service: 05/25/19 Admission Dx/Problem (Free Text: Admission Diagnosis/Problem Admission Diagnosis/Problem CHF, Congestive heart failure Subjective Update: No acute events overnight. Patient reports he feels "pretty good." However, at bedside reports patient is "not doing so good." He reports an episode of diarrhea since admission, however stool looked soft and holding up on the side of the specimen collection hat on exam. Reports shortness of breath is improving. Patient denies cough, chest pain, n/v, dysuria, hematuria, or any acute symptoms. - Patient Data Vitals - Most Recent: Last Vital Signs Temp 98 F 05/24/19 22:45 Pulse 69 05/25/19 10:13 Resp 16 05/24/19 22:45 BP 122/69 05/25/19 10:13 Pulse Ox 95 05/24/19 22:45 Weight - Most Recent: 180 lb I&O - Last 24 hours: Intake & Output 05/24/19 05/25/19 05/25/19 22:59 06:59 14:59 Intake Total 192 350 Output Total 500 500 Balance -308 -150 Lab Results - Last 24 hrs: Laboratory Results - last 24 hr 05/24/19 05/24/19 05/24/19 Range/Units 20:45 20:45 20:45 WBC 7.4 (5.0-10.0) 10^3/uL RBC 3.85 L (4.6-6.2) 10^6/uL Hgb 9.3 L D (14.0-18.0) g/dL Hct 31.7 L (40.0-54.0) % MCV 82.3 (80-100) fL MCH 24.2 L (27.0-34.0) pg MCHC 29.3 L (33.0-35.0) g/dL Plt Count 178 (150-450) 10^3/uL Neut % (Auto) 79.3 H (42.2-75.2) % Lymph % (Auto) 11.1 L (20.5-50.1) % [place] % (Auto) 7.7 (2-8) % Eos % (Auto) 1.5 (1.0-3.0) % Baso % (Auto) 0.4 (0.0-1.0) % PT 14.8 H (9.0-12.0) SEC INR 1.5 H (0.9-1.2) Sodium 134 L (135-145) mmol/L Potassium 4.4 (3.6-5.0) mmol/L Chloride 103 (101-111) mmol/L Carbon Dioxide 22.0 (21.0-31.0) mmol/L Anion Gap 13.4 BUN 26 H (7-18) mg/dL Creatinine 1.6 H (0.6-1.3) mg/dL Est Cr Clr Drug Dosing 39.89 mL/min Estimated GFR (MDRD) 42 BUN/Creatinine Ratio 16.25 Glucose 157 H (74-105) mg/dL POC Glucose (83-110) mg/dl Lactic Acid (0.5-2.0) mmol/L Calcium 8.3 L (8.4-10.2) mg/dl Total Bilirubin 0.5 (0.2-1.0) mg/dL AST 40 (10-42) IU/L ALT 32 (10-60) IU/L Alkaline Phosphatase 65 (42-121) IU/L Troponin I 0.04 H* (0.00-0.02) ng/ml B-Natriuretic Peptide 3050 H (0-100) pg/ml Total Protein 6.8 (6.7-8.2) g/dl Albumin 2.7 L (3.2-5.5) g/dl Globulin 4.1 Albumin/Globulin Ratio 0.66 05/24/19 05/25/19 05/25/19 Range/Units 20:45 07:40 09:22 WBC (5.0-10.0) 10^3/uL RBC (4.6-6.2) 10^6/uL Hgb (14.0-18.0) g/dL Hct (40.0-54.0) % MCV (80-100) fL MCH (27.0-34.0) pg MCHC (33.0-35.0) g/dL Plt Count (150-450) 10^3/uL Neut % (Auto) (42.2-75.2) % Lymph % (Auto) (20.5-50.1) % [place] % (Auto) (2-8) % Eos % (Auto) (1.0-3.0) % Baso % (Auto) (0.0-1.0) % PT (9.0-12.0) SEC INR (0.9-1.2) Sodium 133 L (135-145) mmol/L Potassium 3.9 (3.6-5.0) mmol/L Chloride 102 (101-111) mmol/L Carbon Dioxide 21.0 (21.0-31.0) mmol/L Anion Gap 13.9 BUN 24 H (7-18) mg/dL Creatinine 1.7 H (0.6-1.3) mg/dL Est Cr Clr Drug Dosing 37.54 mL/min Estimated GFR (MDRD) 39 BUN/Creatinine Ratio Glucose 159 H (74-105) mg/dL POC Glucose 98 (83-110) mg/dl Lactic Acid 2.0 (0.5-2.0) mmol/L Calcium 8.5 (8.4-10.2) mg/dl Total Bilirubin (0.2-1.0) mg/dL AST (10-42) IU/L ALT (10-60) IU/L Alkaline Phosphatase (42-121) IU/L Troponin I 0.06 H* (0.00-0.02) ng/ml B-Natriuretic Peptide (0-100) pg/ml Total Protein (6.7-8.2) g/dl Albumin (3.2-5.5) g/dl Globulin Albumin/Globulin Ratio Med Orders - Current: Current Medications Acetaminophen (Tylenol) 650 mg PO Q4H PRN PRN Reason: Pain (mild 1-3) Aspirin (Halfprin) 81 mg PO MoWeFr@0800 [facility] Last Admin: 05/25/19 10:16 Dose: 81 mg Atorvastatin Calcium (Lipitor) 10 mg PO BEDTIME [facility] Carvedilol (Coreg) 12 mg PO BIDMEALS [facility] Last Admin: 05/25/19 10:13 Dose: 12 mg Cyanocobalamin (Vitamin B12) 2,500 mcg PO DAILY [facility] Last Admin: 05/25/19 10:17 Dose: 2,500 mcg Finasteride (Proscar) 5 mg PO DAILY [facility] Last Admin: 05/25/19 10:15 Dose: 5 mg Furosemide (Lasix) 40 mg IVPUSH DAILY [facility] Last Admin: 05/25/19 10:23 Dose: 40 mg Piperacillin Sod/Tazobactam (Sod 3.375 gm/ Sodium Chloride) 100 mls @ 200 mls/ hr IV Q8H [facility] Last Admin: 05/25/19 06:07 Dose: 200 mls/hr Insulin Human Lispro (Humalog) 0 unit SUBCUT ACBED [facility]; Protocol Last Admin: 05/25/19 10:11 Dose: Not Given Metformin HCl (Glucophage) 1,000 mg PO BIDMEALS PRN PRN Reason: Blood Glucose Non-Formulary Medication (Sacubitril/Valsartan [Entresto 24 Mg-26 Mg Tablet]) 1 tab PO BID [facility] Ondansetron HCl (Zofran) 4 mg IVPUSH Q6H PRN PRN Reason: Nausea/Vomiting Ondansetron HCl (Zofran Odt) 4 mg PO Q6H PRN PRN Reason: nausea, able to take PO Potassium Chloride (Klor-Con 10) 20 meq PO DAILY [facility] Last Admin: 05/25/19 10:23 Dose: 20 meq Tamsulosin HCl (Flomax) 0.4 mg PO BEDTIME [facility] Warfarin Sodium (Pharmacy To Dose - Warfarin) 1 dose .XX ASDIRECTED [facility] Warfarin Sodium (Coumadin) 7.5 mg PO ONETIME ONE Stop: 05/25/19 14:01 Discontinued Medications Furosemide (Lasix) 40 mg IVPUSH NOW ONE Stop: 05/24/19 21:43 Last Admin: 05/24/19 22:07 Dose: 40 mg Piperacillin Sod/Tazobactam (Sod 3.375 gm/ Sodium Chloride) 100 mls @ 200 mls/ hr IV Q6H [facility] Last Infusion: 05/25/19 01:08 Dose: Infused - Exam General: Reports: Alert, Oriented, Cooperative, No Acute Distress HEENT: Reports: Pupils Equal, Pupils Reactive, Mucous Membr. Moist/[place] Neck: Reports: Supple, Trachea Midline Lungs: Reports: Clear to Auscultation, Normal Respiratory Effort Cardiovascular: Reports: Regular Rate, Regular Rhythm GI/Abdominal Exam: Normal Bowel Sounds, Soft, Non-Tender, No Distention Extremities: Other (Left big toe amputation and LLE edema. Right BKA.) Neurological: Reports: No New Focal Deficit Psy/Mental Status: Reports: Alert, Normal Affect, Normal Mood *Q Meaningful Use (DIS) - VTE *Q VTE Anticoagulation Contraindications: Alternative [place] Request PT
[2019-05-25] MEDS ORDERED: Warfarin 2.5 MG Tab PO ONE (14:00)
[2019-05-25] MEDS ORDERED: atorvaSTATin 10 MG Tab PO SCH (21:00)
[2019-05-25] MEDS ORDERED: Tamsulosin 0.4 MG Cap.ER PO SCH (21:00)
== END 2019-05-25 11:55 ==
LOC: DL.ED 19:27 → DL.MS 22:26
PROVIDERS: ADMIT Internal Medicine; ATTEND Internal Medicine
DX: I11.0 Hypertensive heart disease with heart failure (principal); I50.23 Acute on chronic systolic (congestive) heart failure; E11.51 Type 2 diabetes mellitus with diabetic peripheral angiopathy without gangrene; E11.65 Type 2 diabetes mellitus with hyperglycemia; E78.5 Hyperlipidemia, unspecified; R19.7 Diarrhea, unspecified; T87.44 Infection of amputation stump, left lower extremity; Z89.511 Acquired absence of right leg below knee; Z79.01 Long term (current) use of anticoagulants; Z79.84 Long term (current) use of oral hypoglycemic drugs; Z79.899 Other long term (current) drug therapy; Z95.0 Presence of cardiac pacemaker; Z82.49 Family history of ischemic heart disease and other diseases of the circulatory system; Z87.891 Personal history of nicotine dependence; Z86.718 Personal history of other venous thrombosis and embolism
CPT/HCPCS: 36415; 71046; 80048; 80053; 82962; 83605; 83880; 84484; 85025; 85610; 87040; 93005; 96365; 96366; 96375; 99285; A9270; G0378; J1940; J2543; J7050; 96374

== ENCOUNTER 2020-02-25 23:52 | Inpatient (IN) | payer MEDICARE, OTHER ==
--- NOTE | 2020-02-26 00:16 | CR ---
PROCEDURE INFORMATION: Exam: XR Chest, 1 View Exam date and time: 02/26/2020 12:05 AM Age: 74 years old Clinical indication: Shortness of breath; Additional info: SOB TECHNIQUE: Imaging protocol: XR of the chest Views: 1 view. COMPARISON: CR Chest 2V 05/24/2019 8:21 PM FINDINGS: Lungs: There are some hazy and [place] opacities present in the lower hemithoraces bilaterally, findings could represent atelectasis although bilateral basilar pneumonia cannot be excluded. Pleural space: Unremarkable. No pleural effusion. No pneumothorax. Heart/Mediastinum: Unremarkable. No cardiomegaly. Vasculature: A pacemaker is placed via the left subclavian vein. Bones/joints: Unremarkable. IMPRESSION: Hazy in strandy opacities in the lower hemithoraces bilaterally may represent atelectasis although pneumonia cannot be excluded.
--- NOTE | 2020-02-26 00:16 | EDM.PDOC ---
ED HPI GENERAL MEDICAL PROBLEM - General Chief Complaint: Respiratory Problem Stated Complaint: SOB/CONGESTIVE HEART FAILURE Time Seen by Provider: 02/26/20 00:14 Source of Information: Reports: Patient History Limitations: Reports: No Limitations - History of Present Illness INITIAL COMMENTS - FREE TEXT/NARRATIVE: sob past few days, worse tonight. - Related Data Allergies Allergy/AdvReac Type Severity Reaction Status Date / Time No Known Allergies Allergy Verified 02/26/20 00:22 Home Meds: Home Meds Aspirin [Low Dose Aspirin EC] 81 mg PO .SAT,SAT,Sat03/12/14 [History] Cyanocobalamin (Vitamin B-12) [Vitamin B-12] 2,500 mcg SL DAILY 03/12/14 [History] Finasteride 5 mg PO DAILY 03/12/14 [History] Tamsulosin HCl 0.4 mg PO BEDTIME 03/12/14 [History] carvediloL [Carvedilol] 12 mg PO BIDMEALS 03/12/14 [History] atorvaSTATin [Lipitor] 10 mg PO BEDTIME 06/16/14 [History] Warfarin [Coumadin] 5 mg PO .SUN,E,SAT,SAT,SAT 05/23/17 [History] metFORMIN [Glucophage] 1,000 mg PO BIDMEALS PRN 05/23/17 [History] Sacubitril/Valsartan [Entresto 24 mg-26 mg Tablet] 1 tab PO BID 12/11/17 [History] Furosemide [Lasix] 40 mg PO DAILY 90 Days #90 tablet 12/31/17 [Rx] Furosemide [Lasix] 20 mg PO QPM #30 tablet 02/09/18 [Rx] Potassium Chloride [Klor-Con M20] 20 meq PO DAILY #30 tab.er 02/09/18 [Rx] Warfarin [Coumadin] 7.5 mg PO .SAT,01/21/19 [History] Piperacillin/Tazobactam [Zosyn] 3.375 gm IV Q8H vial 05/25/19 [Rx] Past Medical History HEENT History: Reports: Cataract, Impaired Vision Cardiovascular History: Reports: Heart Failure, High Cholesterol, Hypertension, Pacemaker, Other (See Below) Other Cardiovascular History: Heart Attack, defib/pacemaker Respiratory History: Reports: SOB Gastrointestinal History: Reports: Hiatal Hernia Genitourinary History: Reports: BPH, Renal Calculus Musculoskeletal History: Reports: Other (See Below) Other Musculoskeletal History: right below the knee amputation Neurological History: Reports: CVA Psychiatric History: Reports: None Endocrine/Metabolic History: Reports: Diabetes, Type II Hematologic History: Reports: B12 Deficiency Immunologic History: Reports: None Oncologic (Cancer) History: Reports: None Dermatologic History: Reports: None - Infectious Disease History Infectious Disease History: Reports: None - Past Surgical History Head Surgeries/Procedures: Reports: None HEENT Surgical History: Reports: Adenoidectomy, Cataract Surgery, Tonsillectomy Cardiovascular Surgical History: Reports: None Respiratory Surgical History: Reports: None GI Surgical History: Reports: Appendectomy Male Surgical History: Reports: None Neurological Surgical History: Reports: None Musculoskeletal Surgical History: Reports: Amputation Social & Family History - Family History Family Medical History: Unobtainable Cardiac: Reports: [place] Oncologic: Reports: Other (See Below) Other Oncologic Family History: mets - Caffeine Use Caffeine Use: Reports: Soda - Living Situation & Occupation Living situation: Reports: , with Spouse Occupation: Retired ED ROS GENERAL - Review of Systems Review Of Systems: Comprehensive ROS is negative, except as noted in HPI. ED EXAM, GENERAL - Physical Exam Exam: See Below Exam Limited By: No Limitations General Appearance: Alert, WD/WN, Mild Distress, Other (discomfort) Ears: Hearing Grossly Normal Throat/Mouth: Normal Voice, No Airway Compromise Head: Atraumatic Neck: Non-Tender, Full Range of Motion Respiratory/Chest: Rhonchi Cardiovascular: Regular Rate, Rhythm GI/Abdominal: Soft, Non-Tender (Male) Exam: Deferred Rectal (Males) Exam: Deferred Extremities: Pedal Edema, Other (1+, right AKA) Neurological: Alert, Oriented, Normal Cognition, No Motor/Sensory Deficits Psychiatric: Normal Affect, Normal Mood Skin Exam: Warm, Dry, Normal Color Lymphatic: No Adenopathy Course - Vital Signs Last Recorded V/S: Last Vital Signs Temp 35.9 C L 02/25/20 23:57 Pulse 78 02/25/20 23:57 Resp 24 H 02/25/20 23:57 BP 114/62 02/25/20 23:57 Pulse Ox 99 02/26/20 00:24 - Orders/Labs/Meds Orders: Active Orders 24 hr Category Date Time Status INR,PT,PROTHROMBIN TIME [COAG] Stat Lab 02/26/20 01:02 Ordered Labs: Laboratory Tests 02/26/20 02/26/20 02/26/20 Range/Units 00:15 00:15 00:15 WBC 8.5 (5.0-10.0) 10^3/uL RBC 3.94 L (4.6-6.2) 10^6/uL Hgb 10.0 L (14.0-18.0) g/dL Hct 33.6 L (40.0-54.0) % MCV 85.3 D (80-100) fL MCH 25.4 L (27.0-34.0) pg MCHC 29.8 L (33.0-35.0) g/dL Plt Count 154 (150-450) 10^3/uL Neut % (Auto) 79.2 H (42.2-75.2) % Lymph % (Auto) 12.4 L (20.5-50.1) % [place] % (Auto) 6.8 (2-8) % Eos % (Auto) 1.2 (1.0-3.0) % Baso % (Auto) 0.4 (0.0-1.0) % Sodium 138 (136-145) mmol/L Potassium 4.6 (3.5-5.1) mmol/L Chloride 101 (98-107) mmol/L Carbon Dioxide 28 (21-32) mmol/L Anion Gap 13.6 H (7-13) mEq/L BUN 33 H (7-18) mg/dL Creatinine 1.76 H (0.70-1.30) mg/dL Est Cr Clr Drug Dosing 35.71 mL/min Estimated GFR (MDRD) 38 BUN/Creatinine Ratio 18.8 (No establ ref range) Glucose 183 H (74-99) mg/dL Lactic Acid 1.7 (0.4-2.0) mmol/L Calcium 8.1 L (8.5-10.1) mg/dL Total Bilirubin 0.5 (0.2-1.0) mg/dL AST 23 (15-37) U/L ALT 33 (16-63) U/L Alkaline Phosphatase 107 (46-116) U/L Troponin I 0.034 (0.000-0.056) ng/mL B-Natriuretic Peptide 4120 H (0-100) pg/ml Total Protein 6.8 (6.4-8.2) g/dL Albumin 3.0 L (3.4-5.0) g/dL Globulin 3.8 Albumin/Globulin Ratio 0.79 SARS CoV-2 RNA Rapid AMANDA (NEGATIVE) 02/26/20 Range/Units 00:30 WBC (5.0-10.0) 10^3/uL RBC (4.6-6.2) 10^6/uL Hgb (14.0-18.0) g/dL Hct (40.0-54.0) % MCV (80-100) fL MCH (27.0-34.0) pg MCHC (33.0-35.0) g/dL Plt Count (150-450) 10^3/uL Neut % (Auto) (42.2-75.2) % Lymph % (Auto) (20.5-50.1) % [place] % (Auto) (2-8) % Eos % (Auto) (1.0-3.0) % Baso % (Auto) (0.0-1.0) % Sodium (136-145) mmol/L Potassium (3.5-5.1) mmol/L Chloride (98-107) mmol/L Carbon Dioxide (21-32) mmol/L Anion Gap (7-13) mEq/L BUN (7-18) mg/dL Creatinine (0.70-1.30) mg/dL Est Cr Clr Drug Dosing mL/min Estimated GFR (MDRD) BUN/Creatinine Ratio (No establ ref range) Glucose (74-99) mg/dL Lactic Acid (0.4-2.0) mmol/L Calcium (8.5-10.1) mg/dL Total Bilirubin (0.2-1.0) mg/dL AST (15-37) U/L ALT (16-63) U/L Alkaline Phosphatase (46-116) U/L Troponin I (0.000-0.056) ng/mL B-Natriuretic Peptide (0-100) pg/ml Total Protein (6.4-8.2) g/dL Albumin (3.4-5.0) g/dL Globulin Albumin/Globulin Ratio SARS CoV-2 RNA Rapid AMANDA Negative (NEGATIVE) - Re-Assessments/Exams Free Text/Narrative Re-Assessment/Exam: 02/26/20 01:[address] Rasmussen who kindly admitted pt. Departure - Departure Time of Disposition: 01:07 Disposition: Admitted As Inpatient 64 Condition: Good Clinical Impression: CHF, Congestive heart failure - Discharge Information Forms: ED Department Discharge Sepsis Event Note (ED) - Focused Exam Vital Signs: Vital Signs Temp Pulse Resp BP Pulse Ox Pulse Ox 02/26/20 00:24 99 02/25/20 23:57 35.9 C L 78 24 H 114/62 99 - My Orders Last 24 Hours: My Active Orders 02/26/20 01:02 INR,PT,PROTHROMBIN TIME [COAG] Stat - Assessment/Plan Last 24 Hours: My Active Orders 02/26/20 01:02 INR,PT,PROTHROMBIN TIME [COAG] Stat
[2020-02-26 00:54] LABS: ANION GAP 13.6 mEq/L (7-13)
[2020-02-26] MEDS ORDERED: Acetaminophen 325 MG Tab PO PRN (01:52)
[2020-02-26] MEDS ORDERED: Docusate Sodium 100 MG Cap PO PRN (01:52)
[2020-02-26] MEDS ORDERED: 50% Dextrose in Water 50 ML Syringe IV PRN (02:04)
[2020-02-26] MEDS ORDERED: Glucagon,Human Recombinant 1 MG Vial IM PRN (02:04)
[2020-02-26] MEDS: Furosemide 40 MG/4 ML VIAL IVPUSH SCH ×3 (02:28→21:39)
--- NOTE | 2020-02-26 02:41 | HP ---
CHIEF COMPLAINT: Shortness of breath. HISTORY OF PRESENT ILLNESS: The patient is a 74-year-old gentleman with past medical history of CHF/chronic systolic dysfunction, coronary artery disease, cerebrovascular disease, peripheral vascular disease, and type 2 diabetes mellitus, was admitted through the emergency room because for the last couple of days has been having some shortness of breath and weight gain. He has been compliant with his medication, but the patient denies any chest pain, fever or chills, abdominal pain, or any bleeding tendencies, but he does mention that he has been having some orthopnea for the last couple of nights. Because of this, and he thinks that he was again having some congestive heart failure, he presented to the emergency room and he was subsequently admitted. PAST MEDICAL HISTORY: As in HPI. REVIEW OF SYSTEMS: As in HPI. The rest of the review of systems is negative. HOME MEDICATIONS: Aspirin 81 mg daily; B12 of 2500 mcg p.o. daily; Proscar 5 mg daily; Flomax 0.4 mg daily; Coreg 12.5 mg b.i.d.; Lipitor 10 mg daily; Coumadin 5 mg on Saturday, Saturday, Saturday, Saturday, and Saturday; metformin 1 g p.o. b.i.d; Entresto 49/51 b.i.d.; Lasix 60 mg b.i.d.; KCl 20 mEq daily; and Coumadin 7.5 mg on Saturday and . SOCIAL HISTORY: The patient lives with his . He is a nonsmoker, non- alcohol drinker. ALLERGIES: No known drug allergies. PHYSICAL EXAMINATION: General: The patient is alert and oriented, is in [id number] respiratory distress. SHEENT: Normocephalic. There are pink palpebral conjunctivae. Sclerae are anicteric. There is mild JVD with hepatojugular reflux. Heart: Regular rate and rhythm. Lungs: Diminished breath sounds on both bases with coarse breath sounds. No wheezing. Abdomen: Mild to moderately obese, but soft and nontender. Bowel sounds positive. Extremities: Remarkable for the right BKA. LABORATORY WORKUP: CBC: WBC is 8.5, hemoglobin is 10, hematocrit is 33.6, and platelets are 154. Comp panel remarkable for glucose of 183, BUN of 33, creatinine of 1.76, sodium of 138, potassium is 4.6, and the rest of the panel unremarkable. BNP is 4120. Troponin is 0.034. Lactic acid is 1.7. Chest x- ray is remarkable for hazy and strandy opacities on the lower hemithoraces bilaterally, which may represent atelectasis, although pneumonia cannot be excluded. ADMITTING DIAGNOSES: 1. Congestive heart failure exacerbation. 2. Coronary artery disease. 3. History of cerebrovascular accident. 4. Peripheral arterial disease. 5. Type 2 diabetes mellitus. TREATMENT PLAN: The patient is going to be admitted to acute care telemetry. He will be resumed on his home medication, and the patient will be receiving IV Lasix. We will also restrict his fluid intake. The rest of the management as necessary, and the patient is a full code. [facility] /[id number]
[2020-02-26] MEDS: Insulin Lispro 100 Units/ML 3 ML Vial SUBCUT SCH ×3 (07:33→16:39)
[2020-02-26] MEDS ORDERED: SACUBITRIL PO SCH (09:00)
[2020-02-26] MEDS ORDERED: VALSARTAN PO SCH (09:00)
[2020-02-26] MEDS ORDERED: [UNRECOGNIZED DRUG - OTHER] PO SCH (09:00)
[2020-02-26] MEDS: Aspirin 81 MG Tab.EC PO SCH (09:30)
[2020-02-26] MEDS: Potassium Chloride 10 MEQ Tab.ER PO SCH (09:30)
[2020-02-26] MEDS: Finasteride 5 MG Tab PO SCH (09:30)
[2020-02-26] MEDS: Cyanocobalamin (Vitamin B12) 1,000 MCG Tab PO SCH (09:30)
[2020-02-26] MEDS: Carvedilol 6.25 MG Tab PO SCH ×2 (09:30→17:12)
[2020-02-26] MEDS: SACUBITRIL PO SCH ×2 (12:06→21:54)
[2020-02-26] MEDS: VALSARTAN PO SCH ×2 (12:06→21:54)
[2020-02-26] MEDS: Sodium Chloride 0.9% 10 ML Syringe FLUSH PRN ×2 (21:39→21:50)
[2020-02-26] MEDS: Tamsulosin 0.4 MG Cap.ER PO SCH (21:39)
[2020-02-26] MEDS: atorvaSTATin 10 MG Tab PO SCH (21:39)
[2020-02-27 06:44] LABS: ANION GAP 10.1 mEq/L (7-13)
[2020-02-27] MEDS: Aspirin 81 MG Tab.EC PO SCH (08:30)
[2020-02-27] MEDS: Finasteride 5 MG Tab PO SCH (08:30)
[2020-02-27] MEDS: Furosemide 40 MG/4 ML VIAL IVPUSH SCH (08:31)
[2020-02-27] MEDS: Potassium Chloride 10 MEQ Tab.ER PO SCH (08:31)
[2020-02-27] MEDS: Cyanocobalamin (Vitamin B12) 1,000 MCG Tab PO SCH (08:31)
[2020-02-27] MEDS: Carvedilol 6.25 MG Tab PO SCH ×2 (08:32→17:58)
[2020-02-27] MEDS: SACUBITRIL PO SCH ×2 (08:37→21:32)
[2020-02-27] MEDS: VALSARTAN PO SCH ×2 (08:37→21:32)
[2020-02-27] MEDS: Insulin Lispro 100 Units/ML 3 ML Vial SUBCUT SCH ×3 (08:38→17:04)
--- NOTE | 2020-02-27 10:06 | PN ---
DATE: 02/27/2020 SUBJECTIVE: The patient is feeling slightly better, although still has some shortness of breath and he has also some coughing spells. The patient denies any chest pain, abdominal pain, fever, chills, nor any other complaints. LABORATORY DATA: Lab workup this morning, pro time INR is 2.1, BUN is 34, creatinine is 1.8, and glucose is 193. OBJECTIVE: Vital Signs: Blood pressure is 98/57, pulse of 71, respiration of 16, temperature of 98.7, and saturation is 95% on 3 L per nasal cannula and telemetry is paced rhythm with no arrhythmias noted. Heart: Regular rate and rhythm. Normal S1 and S2. No gallops. No rubs. Lungs: With diminished breath sounds on both bases with mild expiratory wheeze. Abdomen: Soft, nontender. Bowel sounds positive. Extremities: Remarkable for the right BKA. There is no significant pedal edema on the left leg. MEDICATIONS: Reviewed. PLAN: We will continue with his IV Lasix, and we will continue with the rest of his management. I am also going to start the patient on albuterol inhaler, and we will also put him on incentive spirometry. [facility] /[id number]
[2020-02-27] MEDS: Albuterol 6.7 GM Inhaler INH SCH ×3 (13:19→21:33)
[2020-02-27] MEDS ORDERED: Furosemide 40 MG/4 ML VIAL IVPUSH SCH (18:00)
[2020-02-27] MEDS: Tamsulosin 0.4 MG Cap.ER PO SCH (21:33)
[2020-02-27] MEDS: atorvaSTATin 10 MG Tab PO SCH (21:33)
[2020-02-27] MEDS: Sodium Chloride 0.9% 10 ML Syringe FLUSH PRN (21:48)
[2020-02-28 03:25] VITALS: PULSE 71
[2020-02-28] MEDS: Sodium Chloride 0.9% 10 ML Syringe FLUSH PRN ×2 (05:24→05:34)
[2020-02-28] MEDS ORDERED: Furosemide 40 MG/4 ML VIAL IVPUSH SCH (06:00)
[2020-02-28 07:47] VITALS: BP 99/62
[2020-02-28] MEDS: Albuterol 6.7 GM Inhaler INH SCH (08:32)
[2020-02-28] MEDS: Insulin Lispro 100 Units/ML 3 ML Vial SUBCUT SCH (08:32)
[2020-02-28] MEDS: SACUBITRIL PO SCH (08:33)
[2020-02-28] MEDS: Potassium Chloride 10 MEQ Tab.ER PO SCH (08:33)
[2020-02-28] MEDS: VALSARTAN PO SCH (08:33)
[2020-02-28] MEDS: Finasteride 5 MG Tab PO SCH (08:33)
[2020-02-28] MEDS: Aspirin 81 MG Tab.EC PO SCH (08:33)
[2020-02-28] MEDS: Cyanocobalamin (Vitamin B12) 1,000 MCG Tab PO SCH (08:34)
[2020-02-28] MEDS: Carvedilol 6.25 MG Tab PO SCH (08:35)
--- NOTE | 2020-02-28 10:55 | DISCH ---
FINAL DIAGNOSES: 1. Congestive heart failure exacerbation. 2. Systolic dysfunction. 3. Coronary artery disease. 4. History of cerebrovascular accident. 5. Peripheral artery disease. 6. Type 2 diabetes mellitus. [facility] LABORATORIES, X-RAY, AND OTHER TESTS: Chest x-ray showed hazy strandy opacities in the lower hemithoraces bilaterally, which may represent atelectasis, although pneumonia cannot be excluded. Telemetry is paced rhythm with no significant arrhythmia. BNP on 02/26/2020 is 4120 and repeat on 02/28/2020 is 2470. HOSPITAL COURSE: The patient is a 74-year-old gentleman with past medical history of CHF with chronic systolic dysfunction, coronary artery disease, cerebrovascular disease, peripheral vascular disease, and type 2 diabetes mellitus who was admitted through the emergency room because of increasing shortness of breath and weight gain and CHF exacerbation. The patient was admitted to telemetry floor. He was ruled out for NH. He was given IV Lasix for which he had good diuresis and was resumed on his home medication. Hospital course was uncomplicated, and the patient improved as well as his oxygen saturation and he was subsequently discharged. CONDITION ON DISCHARGE: Improved. DISCHARGE INSTRUCTIONS: 1. Patient is going to follow up with Dr. Rasmussen in 7 days with repeat CBC, basic metabolic panel, and INR. 2. Home medications: The patient's Lasix will be increased to 80 mg twice a day and he will be resumed on his Entresto, aspirin, Coumadin, metformin, Lipitor, and potassium supplementation. [facility] /[id number]
--- NOTE | 2020-02-28 12:07 | PN ---
DATE: 02/28/2020 SUBJECTIVE: The patient continues to do well and he had good diuresis with IV Lasix and oxygen saturation is 91% to 99% on room air. The patient mentioned that he is back to his baseline and ready to go home. He denies any chest pain, orthopnea, PND, abdominal pain, or any other complaints. LABORATORY DATA: Lab workup this morning, CBC; WBC is 6.7, hemoglobin is 9.2, hematocrit is 30.9, platelets 126. INR is 1.8. Chem-6; glucose is 114, BUN is 35, creatinine is 1.74, potassium is 4, and BNP is 2470 (improvement). OBJECTIVE: Vital Signs: Blood pressure is 99/62, pulse 71, respirations of 18, temperature of 97.4, and saturation is 91% on room air. Heart: Regular rate and rhythm. Normal S1 and S2. No gallops. No rubs. Lungs: Diminished breath sounds on both bases, still with mild wheezing, but no significant crackles. Abdomen: Soft, nontender. Extremities: Remarkable for the right BKA, and there is no pedal edema on the left leg. PLAN: We will discharge the patient home today and we will increase his home Lasix to 80 mg b.i.d. and we will resume the rest of his home medication. I am going to see him for followup in 1 week for a recheck. [facility] /[id number]
== END 2020-02-28 10:40 | disposition home or self-care (01) | DRG 191 ==
LOC: DL.ED 23:52 → DL.MS 02-26 01:16
PROVIDERS: ADMIT Internal Medicine; ATTEND Internal Medicine
DX: J44.1 Chronic obstructive pulmonary disease with (acute) exacerbation (principal); I50.9 Heart failure, unspecified; I50.22 Chronic systolic (congestive) heart failure; I25.2 Old myocardial infarction; Z95.810 Presence of automatic (implantable) cardiac defibrillator; I25.10 Atherosclerotic heart disease of native coronary artery without angina pectoris; Z86.73 Personal history of transient ischemic attack (TIA), and cerebral infarction without residual deficits; E11.9 Type 2 diabetes mellitus without complications; I73.9 Peripheral vascular disease, unspecified; Z79.82 Long term (current) use of aspirin; Z79.01 Long term (current) use of anticoagulants; Z79.899 Other long term (current) drug therapy; Z79.84 Long term (current) use of oral hypoglycemic drugs; H54.7 Unspecified visual loss; E78.00 Pure hypercholesterolemia, unspecified; K44.9 Diaphragmatic hernia without obstruction or gangrene; N40.0 Benign prostatic hyperplasia without lower urinary tract symptoms; E53.8 Deficiency of other specified B group vitamins; Z98.49 Cataract extraction status, unspecified eye; Z90.89 Acquired absence of other organs; Z87.442 Personal history of urinary calculi; Z20.828 Contact with and (suspected) exposure to other viral communicable diseases; Z89.511 Acquired absence of right leg below knee; I11.0 Hypertensive heart disease with heart failure
CPT/HCPCS: 36415; 71045; 80053; 82962; 83605; 83880; 84484; 85025; 85610; 99285; U0002; 80048; 94010; 99221; 99232; 99238; A9270-GY; J1940

== ENCOUNTER 2020-03-14 16:49 | Emergency (ER) | payer MEDICARE, OTHER ==
[2020-03-14 17:08] VITALS: BP 121/102; PULSE 74
--- NOTE | 2020-03-14 17:11 | EDM.PDOC ---
ED HPI GENERAL MEDICAL PROBLEM - General Chief Complaint: General Stated Complaint: BREATHING Time Seen by Provider: 03/14/20 17:11 Source of Information: Reports: Patient, Family, RN, RN Notes Reviewed History Limitations: Reports: No Limitations - History of Present Illness INITIAL COMMENTS - FREE TEXT/NARRATIVE: Patient is a 74-year-old male who presents to the ER with a request for furosemide. Patient states he called the clinic today to get some extra furosemide to get him by until he can see his primary care provider who was not in today. No one in the clinic would give him any furosemide without someone listening to his lung sounds, and could not fit him into the clinic today. Patient states he was just discharged from the hospital about a week ago, and continues to have some increased shortness of breath since being discharged. states that she feels the shortness of breath is a little more increased today as well. Patient states his weight has been down a couple pounds recently. No other complaints of at this time. Patient has a history of CHF. Onset: Gradual - Related Data Allergies Allergy/AdvReac Type Severity Reaction Status Date / Time No Known Allergies Allergy Verified 03/14/20 17:08 Home Meds: Home Meds Aspirin [Low Dose Aspirin EC] 81 mg PO DAILY 03/12/14 [History] Cyanocobalamin (Vitamin B-12) [Vitamin B-12] 2,500 mcg SL DAILY 03/12/14 [History] Finasteride 5 mg PO DAILY 03/12/14 [History] Tamsulosin HCl 0.4 mg PO BEDTIME 03/12/14 [History] carvediloL [Carvedilol] 12 mg PO BIDMEALS 03/12/14 [History] atorvaSTATin [Lipitor] 10 mg PO BEDTIME 06/16/14 [History] Warfarin [Coumadin] 5 mg PO DAILY 05/23/17 [History] metFORMIN [Glucophage] 1,000 mg PO DAILY PRN 05/23/17 [History] Potassium Chloride [Klor-Con M20] 20 meq PO DAILY #30 tab.er 02/09/18 [Rx] Sacubitril/Valsartan [Entresto 49 mg-51 mg Tablet] 1 tab PO BID 02/26/20 [History] Albuterol [Proventil HFA] 0 gm INH QID inhaler 02/28/20 [Rx] Furosemide [Lasix] 80 mg PO BID 15 Days #30 02/28/20 [Rx] Sacubitril/Valsartan [Entresto 24 Mg-26 Mg Tablet] 1 tab PO BID 02/28/20 [Rx] Past Medical History HEENT History: Reports: Cataract, Impaired Vision Cardiovascular History: Reports: Heart Failure, High Cholesterol, Hypertension, Pacemaker, Other (See Below) Other Cardiovascular History: Heart Attack, defib/pacemaker Respiratory History: Reports: SOB Gastrointestinal History: Reports: Hiatal Hernia Genitourinary History: Reports: BPH, Renal Calculus Musculoskeletal History: Reports: Other (See Below) Other Musculoskeletal History: right below the knee amputation Neurological History: Reports: CVA Psychiatric History: Reports: None Endocrine/Metabolic History: Reports: Diabetes, Type II Hematologic History: Reports: B12 Deficiency Immunologic History: Reports: None Oncologic (Cancer) History: Reports: None Dermatologic History: Reports: None - Infectious Disease History Infectious Disease History: Reports: None - Past Surgical History Head Surgeries/Procedures: Reports: None HEENT Surgical History: Reports: Adenoidectomy, Cataract Surgery, Tonsillectomy Cardiovascular Surgical History: Reports: None Respiratory Surgical History: Reports: None GI Surgical History: Reports: Appendectomy Male Surgical History: Reports: None Neurological Surgical History: Reports: None Musculoskeletal Surgical History: Reports: Amputation Social & Family History - Family History Family Medical History: Unobtainable Cardiac: Reports: [place] Oncologic: Reports: Other (See Below) Other Oncologic Family History: mets - Caffeine Use Caffeine Use: Reports: None - Living Situation & Occupation Living situation: Reports: , with Spouse Occupation: Retired ED ROS GENERAL - Review of Systems Review Of Systems: Comprehensive ROS is negative, except as noted in HPI. ED EXAM, GENERAL - Physical Exam Exam: See Below Exam Limited By: No Limitations General Appearance: Alert, WD/WN, No Apparent Distress Eye Exam: Bilateral Eye: EOMI, Normal Inspection, Other (small amount of yellow crust around the eyes) Ears: Normal External Exam, Hearing Grossly Normal Nose: Normal Inspection Throat/Mouth: Normal Inspection, Normal Voice, No Airway Compromise Head: Atraumatic, Normocephalic Neck: Normal Inspection, Supple, Non-Tender, Full Range of Motion Respiratory/Chest: No Respiratory Distress, No Accessory Muscle Use, Chest Non- Tender, Decreased Breath Sounds Cardiovascular: Normal Peripheral Pulses, Regular Rate, Rhythm, No Gallop, No JVD, No Murmur, No Rub, Other (+2 pedal/LLE edema) Peripheral Pulses: 2+: Radial (L), Radial (R) GI/Abdominal: Normal Bowel Sounds, Soft, Non-Tender (Male) Exam: Deferred Rectal (Males) Exam: Deferred Back Exam: Normal Inspection, Decreased Range of Motion Extremities: Other (Right AKA, +2 edema to the lower extremity/pedal) Neurological: Alert, Oriented, CN II-XII Intact, Normal Cognition, Normal Reflexes, No Motor/Sensory Deficits Psychiatric: Normal Affect, Normal Mood Skin Exam: Warm, Dry, Intact, Normal Color, No Rash Lymphatic: No Adenopathy Course - Vital Signs Last Recorded V/S: Last Vital Signs Temp 97.2 F 03/14/20 17:04 Pulse 74 03/14/20 17:04 Resp 21 H 03/14/20 17:04 BP 121/102 H 03/14/20 17:04 Pulse Ox 96 03/14/20 17:04 - Orders/Labs/Meds Labs: Laboratory Tests 03/14/20 03/14/20 Range/Units 17:38 17:38 WBC 7.4 (5.0-10.0) 10^3/uL RBC 4.15 L (4.6-6.2) 10^6/uL Hgb 10.6 L (14.0-18.0) g/dL Hct 35.1 L (40.0-54.0) % MCV 84.6 (80-100) fL MCH 25.5 L (27.0-34.0) pg MCHC 30.2 L (33.0-35.0) g/dL Plt Count 151 (150-450) 10^3/uL Neut % (Auto) 82.1 H (42.2-75.2) % Lymph % (Auto) 10.7 L (20.5-50.1) % [place] % (Auto) 6.0 (2-8) % Eos % (Auto) 1.1 (1.0-3.0) % Baso % (Auto) 0.1 (0.0-1.0) % Sodium 137 (136-145) mmol/L Potassium 4.5 (3.5-5.1) mmol/L Chloride 100 (98-107) mmol/L Carbon Dioxide 28 (21-32) mmol/L Anion Gap 13.5 H (7-13) mEq/L BUN 36 H (7-18) mg/dL Creatinine 1.86 H (0.70-1.30) mg/dL Est Cr Clr Drug Dosing TNP Estimated GFR (MDRD) 35 BUN/Creatinine Ratio 19.4 (No establ ref range) Glucose 137 H (74-99) mg/dL Calcium 8.8 (8.5-10.1) mg/dL Total Bilirubin 0.6 (0.2-1.0) mg/dL AST 15 (15-37) U/L ALT 25 (16-63) U/L Alkaline Phosphatase 90 (46-116) U/L B-Natriuretic Peptide 2880 H (0-100) pg/ml Total Protein 7.7 (6.4-8.2) g/dL Albumin 3.4 (3.4-5.0) g/dL Globulin 4.3 Albumin/Globulin Ratio 0.8 Meds: Medications Discontinued Medications Generic Name Dose Route Start Last Admin Trade Name Freq PRN Reason Stop Dose Admin Furosemide 40 mg 03/14/20 18:17 03/14/20 19:13 Lasix IVPUSH 03/14/20 18:18 40 mg NOW ONE Administration Furosemide Confirm 03/14/20 18:43 03/14/20 19:13 Lasix Administered 03/14/20 18:44 Not Given Dose 40 mg .ROUTE .STK-MED ONE Ceftriaxone Sodium 1 gm/ 50 mls @ 100 mls/hr 03/14/20 18:17 03/14/20 18:41 Sodium Chloride IV 03/14/20 18:46 100 mls/hr ONETIME ONE Administration - Radiology Interpretation Free Text/Narrative:: PROCEDURE INFORMATION: Exam: XR Chest, 1 View Exam date and time: 03/14/2020 5:30 PM Age: 74 years old Clinical indication: Other: Chest pain TECHNIQUE: Imaging protocol: XR of the chest Views: 1 view. COMPARISON: CR Chest 1V Frontal 02/26/2020 12:05 AM FINDINGS: Tubes, catheters and devices: Cardiac leads in unchanged position. Lungs: Hazy lung opacities at the bases may reflect atelectasis and or pneumonia. Pleural space: Suspect tiny right pleural effusion. Heart/Mediastinum: Borderline to mild cardiomegaly. Bones/joints: Unremarkable. IMPRESSION: Bilateral lower lobe lung opacities may represent pneumonia and or atelectasis. There may be a tiny right pleural effusion. Thank you for allowing us to participate in the care of your patient. Dictated and Authenticated by: Devon Issa MD 03/14/2020 5:42 PM Central Time ([place] & [place]) Departure - Departure Time of Disposition: 19:13 Disposition: Home, Self-Care 01 Condition: Fair Clinical Impression: Pneumonitis Congestive heart failure Qualifiers: Heart failure type: unspecified Heart failure chronicity: acute on chronic Qualified Code(s): I50.9 - Heart failure, unspecified - Discharge Information *PRESCRIPTION DRUG MONITORING PROGRAM REVIEWED*: No *COPY OF PRESCRIPTION DRUG MONITORING REPORT IN PATIENT PATRICK: No Instructions: Heart Failure, Self Care, [id number], Community-Acquired Pneumonia, Adult, [id number] Forms: ED Department Discharge Additional Instructions: RX: Azithromycin Continue home medications as prescribed Follow up with Dr. Rasmussen via phone on Saturday. Return to the ER with any worsening of problems Sepsis Event Note (ED) - Evaluation Sepsis Screening Result: No Definite Risk
--- NOTE | 2020-03-14 17:42 | CR ---
PROCEDURE INFORMATION: Exam: XR Chest, 1 View Exam date and time: 03/14/2020 5:30 PM Age: 74 years old Clinical indication: Other: Chest pain TECHNIQUE: Imaging protocol: XR of the chest Views: 1 view. COMPARISON: CR Chest 1V Frontal 02/26/2020 12:05 AM FINDINGS: Tubes, catheters and devices: Cardiac leads in unchanged position. Lungs: Hazy lung opacities at the bases may reflect atelectasis and or pneumonia. Pleural space: Suspect tiny right pleural effusion. Heart/Mediastinum: Borderline to mild cardiomegaly. Bones/joints: Unremarkable. IMPRESSION: Bilateral lower lobe lung opacities may represent pneumonia and or atelectasis. There may be a tiny right pleural effusion.
[2020-03-14 18:05] LABS: ANION GAP 13.5 mEq/L (7-13); CHLORIDE,CL 100 mmol/L (98-107); SODIUM,NA 137 mmol/L (136-145)
[2020-03-14] MEDS ORDERED: cefTRIAXone 1 GM in Sodium Chloride 0.9% 50 ML IV ONE (18:17)
[2020-03-14] MEDS ORDERED: Furosemide 40 MG/4 ML VIAL IVPUSH ONE (18:17)
[2020-03-14] MEDS ORDERED: Furosemide 40 MG/4 ML VIAL ONE (18:43)
== END 2020-03-14 19:21 | disposition home or self-care (01) ==
LOC: DL.ED 16:49
DX: J18.9 Pneumonia, unspecified organism (principal); I11.0 Hypertensive heart disease with heart failure; I50.9 Heart failure, unspecified; E11.9 Type 2 diabetes mellitus without complications; N40.0 Benign prostatic hyperplasia without lower urinary tract symptoms; E78.00 Pure hypercholesterolemia, unspecified; Z79.82 Long term (current) use of aspirin; Z79.899 Other long term (current) drug therapy; Z79.01 Long term (current) use of anticoagulants; Z79.84 Long term (current) use of oral hypoglycemic drugs; Z86.73 Personal history of transient ischemic attack (TIA), and cerebral infarction without residual deficits; Z90.49 Acquired absence of other specified parts of digestive tract
CPT/HCPCS: 36415; 71045; 80053; 83880; 85025; 96365; 96375; 99285; J0696; J1940; J7050; 99283

== ENCOUNTER 2020-06-01 22:51 | Emergency (ER) | payer MEDICARE, OTHER ==
[2020-06-01 23:53] VITALS: BP 97/54; PULSE 80
--- NOTE | 2020-06-02 | CR ---
PROCEDURE INFORMATION: Exam: XR Chest Exam date and time: 06/01/2020 11:17 PM Age: 74 years old Clinical indication: Shortness of breath; Additional info: Shortness of breath; HX chf TECHNIQUE: Imaging protocol: XR of the chest Views: 2 views. COMPARISON: CR Chest 1V Frontal 03/14/2020 5:30 PM FINDINGS: Tubes, catheters and devices: A pacemaker device is present, and its leads are in appropriate position. Lungs: Consolidation in the right lung base. Remainder of the lungs are clear. Pleural spaces: Blunting of the right costophrenic angle. Left costophrenic angle is clear. Heart/Mediastinum: The heart is moderately enlarged. Calcified aortic knob. Bones/joints: No acute skeletal abnormality or aggressive osseous lesion. IMPRESSION: 1. Moderately sized layering right pleural effusion. 2. Compressive atelectasis in the right lung base versus acute airspace disease in the appropriate clinical setting.
--- NOTE | 2020-06-02 00:04 | EDM.PDOC ---
ED HPI GENERAL MEDICAL PROBLEM - General Chief Complaint: Respiratory Problem Stated Complaint: DIFFICULTY BREATHING Time Seen by Provider: 06/02/20 00:19 Source of Information: Reports: Patient, Family (), Old Records, RN, RN Notes Reviewed History Limitations: Reports: No Limitations - History of Present Illness INITIAL COMMENTS - FREE TEXT/NARRATIVE: Patient presents to the ED via personal vehicle with for complaints of shortness of breath. The patient attest to a history of CHF and has been experiencing shortness of breath "..for some time." He reports he received a chest x-ray about one month ago via [place] [facility] at [facility] in [place], who notified him of a pulmonary effusion of the right lower lung. He was instructed to continue on his previously prescribed medications, including furosemide 80mg daily and Entresto 49/51mg. He notes his shortness of breath has worsened in the past 24 hours. He denies recent illness, fever, shaking chills, cough, sore throat, chest pain, dyspepsia, nausea, vomiting, or diarrhea. He does report receiving both doses of the COVID vaccine. - Related Data Allergies Allergy/AdvReac Type Severity Reaction Status Date / Time No Known Allergies Allergy Verified 06/01/20 23:53 Home Meds: Home Meds Aspirin [Low Dose Aspirin EC] 81 mg PO DAILY 03/12/14 [History] Cyanocobalamin (Vitamin B-12) [Vitamin B-12] 2,500 mcg SL DAILY 03/12/14 [History] Finasteride 5 mg PO DAILY 03/12/14 [History] Tamsulosin HCl 0.4 mg PO BEDTIME 03/12/14 [History] carvediloL [Carvedilol] 12 mg PO BIDMEALS 03/12/14 [History] atorvaSTATin [Lipitor] 10 mg PO BEDTIME 06/16/14 [History] Warfarin [Coumadin] 5 mg PO DAILY 05/23/17 [History] metFORMIN [Glucophage] 1,000 mg PO BEDTIME 05/23/17 [History] Potassium Chloride [Klor-Con M20] 20 meq PO DAILY #30 tab.er 02/09/18 [Rx] Sacubitril/Valsartan [Entresto 49 mg-51 mg Tablet] 1 tab PO BID 02/26/20 [Histo ry] Albuterol [Proventil HFA] 0 gm INH QID inhaler 02/28/20 [Rx] Furosemide [Lasix] 80 mg PO BID 15 Days #30 02/28/20 [Rx] Sacubitril/Valsartan [Entresto 24 Mg-26 Mg Tablet] 1 tab PO BID 02/28/20 [Rx] Past Medical History HEENT History: Reports: Cataract, Impaired Vision Cardiovascular History: Reports: Heart Failure, High Cholesterol, Hypertension, Pacemaker, Other (See Below) Other Cardiovascular History: Heart Attack, defib/pacemaker Respiratory History: Reports: SOB Gastrointestinal History: Reports: Hiatal Hernia Genitourinary History: Reports: BPH, Renal Calculus Musculoskeletal History: Reports: Other (See Below) Other Musculoskeletal History: right below the knee amputation Neurological History: Reports: CVA Psychiatric History: Reports: None Endocrine/Metabolic History: Reports: Diabetes, Type II Hematologic History: Reports: B12 Deficiency Immunologic History: Reports: None Oncologic (Cancer) History: Reports: None Dermatologic History: Reports: None - Infectious Disease History Infectious Disease History: Reports: None - Past Surgical History Head Surgeries/Procedures: Reports: None HEENT Surgical History: Reports: Adenoidectomy, Cataract Surgery, Tonsillectomy Cardiovascular Surgical History: Reports: None Respiratory Surgical History: Reports: None GI Surgical History: Reports: Appendectomy Male Surgical History: Reports: None Neurological Surgical History: Reports: None Musculoskeletal Surgical History: Reports: Amputation Social & Family History - Family History Family Medical History: Unobtainable Cardiac: Reports: SD Oncologic: Reports: Other (See Below) Other Oncologic Family History: mets - Caffeine Use Caffeine Use: Reports: Coffee - Living Situation & Occupation Living situation: Reports: , with Spouse Occupation: Retired ED ROS GENERAL - Review of Systems Review Of Systems: Comprehensive ROS is negative, except as noted in HPI. ED EXAM, GENERAL - Physical Exam Exam: See Below Exam Limited By: No Limitations General Appearance: Alert, Moderate Distress (Respiratory distress) Eye Exam: Bilateral Eye: EOMI, Normal Inspection, PERRL (3mm) Ears: Normal External Exam, Normal Canal, Hearing Grossly Normal, Normal TMs Ear Exam: Bilateral Ear: Auricle Normal, Canal Normal, TM normal Nose: Normal Inspection, Normal Mucosa, No Blood Throat/Mouth: Normal Voice, No Airway Compromise. No: Normal Oropharynx (Dry mucous membranes) Head: Atraumatic, Normocephalic Neck: Normal Inspection, Supple, Non-Tender, Full Range of Motion Respiratory/Chest: Respiratory Distress, Decreased Breath Sounds, Crackles (To bilateral lower bases), Wheezing (Expiratory to bilateral lobes), Accessory Muscle Use Cardiovascular: Normal Peripheral Pulses, Regular Rate, Rhythm, No Edema, No Gallop, No JVD, No Murmur, No Rub, Other (V-Paced) Peripheral Pulses: 2+: Radial (L), Radial (R) GI/Abdominal: Soft, Non-Tender, No Distention, No Mass, Pelvis Stable, Abnormal Bowel Sounds (Hyperactive bowel sounds) (Male) Exam: Deferred Rectal (Males) Exam: Deferred Back Exam: Normal Inspection, Full Range of Motion Extremities: Normal Capillary Refill, Pedal Edema (+2 pitting to LLE), Pallor, Other (Right BKA) Neurological: Alert, Oriented, CN II-XII Intact, Normal Cognition, Normal Gait, No Motor/Sensory Deficits Psychiatric: Depressed Mood, Flat Affect Skin Exam: Dry, Intact, Pallor. No: Ecchymosis, Erythema, Jaundice, Mottled, Petechiae Course - Vital Signs Last Recorded V/S: Last Vital Signs Temp 98.1 F 06/01/20 23:45 Pulse 80 06/01/20 23:45 Resp 26 H 06/01/20 23:45 BP 97/54 L 06/01/20 23:45 Pulse Ox 93 L 06/01/20 23:45 - Orders/Labs/Meds Orders: Active Orders 24 hr Category Date Time Status EKG Documentation Completion [RC] STAT Care 06/02/20 00:17 Active RT Aerosol Therapy [RC] ASDIRECTED Care 06/02/20 00:37 Ordered CULTURE BLOOD [BC] Stat Lab 06/02/20 00:17 Ordered UA RFX ZAID AND CULT IF INDIC [URIN] Stat Lab 06/02/20 00:17 Ordered Albumin 5% [Buminate 5%] 250 ml Med 06/02/20 01:30 Active IV ASDIRECTED Blood Culture x2 Reflex Set [OM.PC] Stat Oth 06/02/20 00:17 Ordered Medication Orders Albumin Human (Buminate 5%) 250 mls @ 250 mls/hr IV ASDIRECTED PEGGY Labs: Laboratory Tests 06/02/20 06/02/20 06/02/20 Range/Units 00:32 00:32 00:32 WBC 8.1 (5.0-10.0) 10^3/uL RBC 3.86 L (4.6-6.2) 10^6/uL Hgb 9.2 L (14.0-18.0) g/dL Hct 31.8 L (40.0-54.0) % MCV 82.4 (80-100) fL MCH 23.8 L (27.0-34.0) pg MCHC 28.9 L (33.0-35.0) g/dL Plt Count 162 (150-450) 10^3/uL Neut % (Auto) 85.0 H (42.2-75.2) % Lymph % (Auto) 6.1 L (20.5-50.1) % [place] % (Auto) 6.8 (2-8) % Eos % (Auto) 2.0 (1.0-3.0) % Baso % (Auto) 0.1 (0.0-1.0) % ESR (0-15) mm/hr PT 26.3 H D (9.0-12.0) SEC INR 2.8 H (0.9-1.2) APTT 36.2 H (22.0-34.0) SEC Sodium 134 L (136-145) mmol/L Potassium 5.2 H (3.5-5.1) mmol/L Chloride 97 L (98-107) mmol/L Carbon Dioxide 30 (21-32) mmol/L Anion Gap 12.2 (7-13) mEq/L BUN 40 H (7-18) mg/dL Creatinine 1.92 H (0.70-1.30) mg/dL Est Cr Clr Drug Dosing 33.26 mL/min Estimated GFR (MDRD) 34 BUN/Creatinine Ratio 20.8 (No establ ref range) Glucose 188 H (74-99) mg/dL Lactic Acid (0.4-2.0) mmol/L Calcium 8.1 L (8.5-10.1) mg/dL Total Bilirubin 0.6 (0.2-1.0) mg/dL AST 37 (15-37) U/L ALT 43 (16-63) U/L Alkaline Phosphatase 95 (46-116) U/L CK-MB (CK-2) (0.0-3.6) ng/mL Troponin I 0.017 (0.000-0.056) ng/mL C-Reactive Protein 4.0 H (0.0-0.9) mg/dL B-Natriuretic Peptide 4270 H (0-100) pg/ml Total Protein 7.1 (6.4-8.2) g/dL Albumin 2.8 L (3.4-5.0) g/dL Globulin 4.3 Albumin/Globulin Ratio 0.65 06/02/20 06/02/20 06/02/20 Range/Units 00:32 00:32 00:32 WBC (5.0-10.0) 10^3/uL RBC (4.6-6.2) 10^6/uL Hgb (14.0-18.0) g/dL Hct (40.0-54.0) % MCV (80-100) fL MCH (27.0-34.0) pg MCHC (33.0-35.0) g/dL Plt Count (150-450) 10^3/uL Neut % (Auto) (42.2-75.2) % Lymph % (Auto) (20.5-50.1) % [place] % (Auto) (2-8) % Eos % (Auto) (1.0-3.0) % Baso % (Auto) (0.0-1.0) % ESR 24 H (0-15) mm/hr PT (9.0-12.0) SEC INR (0.9-1.2) APTT (22.0-34.0) SEC Sodium (136-145) mmol/L Potassium (3.5-5.1) mmol/L Chloride (98-107) mmol/L Carbon Dioxide (21-32) mmol/L Anion Gap (7-13) mEq/L BUN (7-18) mg/dL Creatinine (0.70-1.30) mg/dL Est Cr Clr Drug Dosing mL/min Estimated GFR (MDRD) BUN/Creatinine Ratio (No establ ref range) Glucose (74-99) mg/dL Lactic Acid 1.7 (0.4-2.0) mmol/L Calcium (8.5-10.1) mg/dL Total Bilirubin (0.2-1.0) mg/dL AST (15-37) U/L ALT (16-63) U/L Alkaline Phosphatase (46-116) U/L CK-MB (CK-2) 1.3 (0.0-3.6) ng/mL Troponin I (0.000-0.056) ng/mL C-Reactive Protein (0.0-0.9) mg/dL B-Natriuretic Peptide (0-100) pg/ml Total Protein (6.4-8.2) g/dL Albumin (3.4-5.0) g/dL Globulin Albumin/Globulin Ratio Meds: Medications Generic Name Dose Route Start Last Admin Trade Name Freq PRN Reason Stop Dose Admin Albumin Human 250 mls @ 250 mls/hr 06/02/20 01:30 Buminate 5% IV ASDIRECTED PEGGY Discontinued Medications Generic Name Dose Route Start Last Admin Trade Name Freq PRN Reason Stop Dose Admin Albuterol/Ipratropium 3 ml 06/02/20 00:37 Duoneb 3.0-0.5 Mg/3 Ml NEB 06/02/20 00:38 ONETIME ONE Furosemide 40 mg 06/02/20 01:45 Lasix IVPUSH 06/02/20 01:46 NOW ONE - Radiology Interpretation Free Text/Narrative:: [facility] Final Radiology Report Call: [phone] assistance Online chat: [email or web address] Name: FARHANA WRIGHT Age: 74Years M Date: 06/01/2020 SSN: -- : [id number] Study: CR CHEST 2V Requesting Physician: Nayana Cooper Images: 2 Addl Studies: Provided Clinical History: Shortness of breath; Hx CHF Contrast: Contrast Medium: Contrast Amount: Contrast Method: Page 1 of 2 PROCEDURE INFORMATION: Exam: XR Chest Exam date and time: 06/01/2020 11:17 PM Age: 74 years old Clinical indication: Shortness of breath; Additional info: Shortness of breath; HX chf TECHNIQUE: Imaging protocol: XR of the chest Views: 2 views. COMPARISON: CR Chest 1V Frontal 03/14/2020 5:30 PM FINDINGS: Tubes, catheters and devices: A pacemaker device is present, and its leads are in appropriate position. Lungs: Consolidation in the right lung base. Remainder of the lungs are clear. Pleural spaces: Blunting of the right costophrenic angle. Left costophrenic angle is clear. Heart/Mediastinum: The heart is moderately enlarged. Calcified aortic knob. Bones/joints: No acute skeletal abnormality or aggressive osseous lesion. IMPRESSION: 1. Moderately sized layering right pleural effusion. 2. Compressive atelectasis in the right lung base versus acute airspace disease in the appropriate clinical setting. Thank you for allowing us to participate in the care of your patient. Dictated and Authenticated by: Duc Thompson MD CULMER, THOMAS | Final Radiology Report CONFIDENTIALITY STATEMENT This report is intended only for use by the referring physician, and only in accordance with law. If you received this in error, call [phone]. Page 2 of 2 06/02/2020 12:00 AM Central Time ([place] & [place]) - Re-Assessments/Exams Free Text/Narrative Re-Assessment/Exam: 06/02/20 CXR reveals moderate pleural effusion to right lung base; possibly increased in size when compared to film from one month ago. CHF exacerbation: BNP markedly elevated at 4200, comparison of prior levels 2000 range. Troponin WNL. EKG reveals V-paced rhythm at 74; no evidence of myocardial ischemia noted. As patient's blood pressure is borderline hypotensive, will administer Albumin 5% prior to Lasix 80mg IVP. Chronic kidney injury appreciated with creatinine elevated at 1.9, BUN 40, GFR 34. Case discussed with Dr. Garcia at [facility] in [place] who kindly agreed to accept patient for transfer. Dr. Garcia requests Lasix 40mg instead of 80mg. Findings of imaging, lab values, and examination discussed with patient and who verbalized understanding and agreement with the plan of care Departure - Departure Time of Disposition: 02:11 Disposition: DC/Tfer to Acute Hospital 02 Condition: Good Clinical Impression: Pleural effusion, right, Paced rhythm on electrocardiogram (ECG), History of below-knee amputation of right lower extremity Acute exacerbation of congestive heart failure Qualifiers: Heart failure type: unspecified Qualified Code(s): I50.9 - Heart failure, unspecified Anemia Qualifiers: Anemia type: due to chronic kidney disease Chronic kidney disease stage: unspecified stage Qualified Code(s): N18.9 - Chronic kidney disease, unspecified; D63.1 - Anemia in chronic kidney disease Diabetes mellitus type II, controlled Qualifiers: Diabetes mellitus long filler cigar roller machine insulin use: without long filler cigar roller machine use Diabetes mellitus complication status: with unspecified complications Qualified Code(s): E11.8 - Type 2 diabetes mellitus with unspecified complications - Discharge Information Forms: ED Department Discharge, Interfacility Transfer [facility] Sepsis Event Note (ED) - Evaluation Sepsis Screening Result: No Definite Risk - Focused Exam Vital Signs: Vital Signs Temp Pulse Resp BP Pulse Ox 06/01/20 23:45 98.1 F 80 26 H 97/54 L 93 L - My Orders Last 24 Hours: My Active Orders 06/02/20 00:17 EKG Documentation Completion [RC] STAT CULTURE BLOOD [BC] Stat UA RFX ZAID AND CULT IF INDIC [URIN] Stat Blood Culture x2 Reflex Set [OM.PC] Stat 06/02/20 00:37 RT Aerosol Therapy [RC] ASDIRECTED 06/02/20 01:30 Albumin 5% [Buminate 5%] 250 ml IV ASDIRECTED - Assessment/Plan Last 24 Hours: My Active Orders 06/02/20 00:17 EKG Documentation Completion [RC] STAT CULTURE BLOOD [BC] Stat UA RFX ZAID AND CULT IF INDIC [URIN] Stat Blood Culture x2 Reflex Set [OM.PC] Stat 06/02/20 00:37 RT Aerosol Therapy [RC] ASDIRECTED 06/02/20 01:30 Albumin 5% [Buminate 5%] 250 ml IV ASDIRECTED
[2020-06-02] MEDS ORDERED: Albuterol/Ipratropium 3.0-0.5 MG/3 ML Neb Soln NEB ONE (00:37)
[2020-06-02 01:02] LABS: ANION GAP 12.2 mEq/L (7-13)
[2020-06-02 01:10] LABS: PTT,PARTIAL THROMBOPLSTIN TIME 36.2 SEC (22.0-34.0)
[2020-06-02] MEDS ORDERED: Furosemide 40 MG/4 ML VIAL IVPUSH ONE ×2 (01:23→01:45)
[2020-06-02] MEDS ORDERED: Albumin 5% 250 ML IV SCH (01:30)
== END 2020-06-02 02:30 ==
LOC: DL.ED 22:51
DX: I13.0 Hypertensive heart and chronic kidney disease with heart failure and stage 1 through stage 4 chronic kidney disease, or unspecified chronic kidney disease (principal); I50.9 Heart failure, unspecified; N18.9 Chronic kidney disease, unspecified; D63.1 Anemia in chronic kidney disease; E11.22 Type 2 diabetes mellitus with diabetic chronic kidney disease; J90 Pleural effusion, not elsewhere classified; E78.00 Pure hypercholesterolemia, unspecified; N40.0 Benign prostatic hyperplasia without lower urinary tract symptoms; Z89.511 Acquired absence of right leg below knee; Z79.82 Long term (current) use of aspirin; Z79.899 Other long term (current) drug therapy; Z79.84 Long term (current) use of oral hypoglycemic drugs; Z79.01 Long term (current) use of anticoagulants; Z86.73 Personal history of transient ischemic attack (TIA), and cerebral infarction without residual deficits
CPT/HCPCS: 36415; 71046; 80053; 82553; 83605; 83880; 84484; 85025; 85610; 85651; 85730; 86140; 87040; 93005; 96365; 96375; 99285; J1940; P9045; 99284; J7620-GY

== ENCOUNTER 2020-07-04 20:47 | Inpatient (IN) | payer MEDICARE, OTHER ==
[2020-07-04] MEDS ORDERED: Albuterol/Ipratropium 3.0-0.5 MG/3 ML Neb Soln NEB ONE (22:05)
--- NOTE | 2020-07-04 22:11 | EDM.PDOC ---
ED HPI GENERAL MEDICAL PROBLEM - General Chief Complaint: Respiratory Problem Stated Complaint: TROUBLE BREATHING Time Seen by Provider: 07/04/20 22:06 Source of Information: Reports: Patient, Family (), Old Records, RN, RN Notes Reviewed History Limitations: Reports: Respiratory Distress - History of Present Illness INITIAL COMMENTS - FREE TEXT/NARRATIVE: Patient presents to the ED via personal vehicle with for complaints of shortness of breath. The patient states the shortness of breath began abruptly at approximately 1900 this evening. He does report a history of CHF, DM II, s/p right BKA, and paced rhythm; he follows with Tierra Crowe at [facility] in [place] for CHF. The patient was seen in this ED about one month ago for similar symptoms and was subsequently sent to [facility] for right pleural effusion superimposed on CHF exacerbation. He states no med changes were made following discharge from [facility]. He denies recent illness, fever, shaking chills, cough, sore throat, chest pain, palpitations, nausea, or vomiting. He denies a history of COVID infection and is currently fully vaccinated against COVID. He denies tobacco, alcohol, or recreational drug use. - Related Data Allergies Allergy/AdvReac Type Severity Reaction Status Date / Time No Known Allergies Allergy Verified 06/01/20 23:53 Home Meds: Home Meds Aspirin [Low Dose Aspirin EC] 81 mg PO Q72H 03/12/14 [History] Cyanocobalamin (Vitamin B-12) [Vitamin B-12] 2,500 mcg SL DAILY 03/12/14 [History] Tamsulosin HCl 0.4 mg PO BEDTIME 03/12/14 [History] atorvaSTATin [Lipitor] 10 mg PO BEDTIME 06/16/14 [History] Warfarin [Coumadin] 5 mg PO .MWF 05/23/17 [History] Sacubitril/Valsartan [Entresto 49 mg-51 mg Tablet] 1 tab PO BID 02/26/20 [History] Acetaminophen 650 mg PO Q6H PRN 07/05/20 [History] Ferrous Sulfate 325 mg PO BID 07/05/20 [History] Finasteride [Proscar] 5 mg PO DAILY 07/05/20 [History] Ipratropium [Atrovent 0.03% Nasal [place]] 2 spray NASBOTH TID 07/05/20 [History] Potassium Chloride [Klor-Con 10] 20 meq PO DAILY 07/05/20 [History] Torsemide 80 mg PO DAILY 07/05/20 [History] Warfarin [Coumadin] 2.5 mg PO .TUTHSASU 07/05/20 [History] carvediloL [Carvedilol] 12.5 mg PO BID 07/05/20 [History] metFORMIN HCl [Metformin HCl] 1,000 mg PO BID 07/05/20 [History] Acetaminophen [Tylenol] 650 mg PO Q4H PRN tablet 07/06/20 [Rx] Albuterol [Proventil Neb Soln] 2.5 mg NEB QID PRN #30 neb 07/06/20 [Rx] Levofloxacin [Levaquin] 500 mg PO DAILY 7 Days #7 tablet 07/06/20 [Rx] Past Medical History HEENT History: Reports: Cataract, Impaired Vision Cardiovascular History: Reports: Heart Failure, High Cholesterol, Hypertension, Pacemaker, Other (See Below) Other Cardiovascular History: Heart Attack, defib/pacemaker Respiratory History: Reports: SOB Gastrointestinal History: Reports: Hiatal Hernia Genitourinary History: Reports: BPH, Renal Calculus Musculoskeletal History: Reports: Other (See Below) Other Musculoskeletal History: right below the knee amputation Neurological History: Reports: CVA Psychiatric History: Reports: None Endocrine/Metabolic History: Reports: Diabetes, Type II Hematologic History: Reports: B12 Deficiency Immunologic History: Reports: None Oncologic (Cancer) History: Reports: None Dermatologic History: Reports: None - Infectious Disease History Infectious Disease History: Reports: Chicken Pox, Measles, Mumps - Past Surgical History Head Surgeries/Procedures: Reports: None HEENT Surgical History: Reports: Adenoidectomy, Cataract Surgery, Tonsillectomy Cardiovascular Surgical History: Reports: None Respiratory Surgical History: Reports: None GI Surgical History: Reports: Appendectomy Male Surgical History: Reports: None Neurological Surgical History: Reports: None Musculoskeletal Surgical History: Reports: Amputation Social & Family History - Family History Family Medical History: Unobtainable Cardiac: Reports: IN Oncologic: Reports: Other (See Below) Other Oncologic Family History: mets - Caffeine Use Caffeine Use: Reports: None - Living Situation & Occupation Living situation: Reports: , with Spouse Occupation: Retired ED ROS GENERAL - Review of Systems Review Of Systems: Comprehensive ROS is negative, except as noted in HPI. ED EXAM, GENERAL - Physical Exam Exam: See Below Exam Limited By: Respiratory Distress General Appearance: Alert, Moderate Distress (Shortness of breath) Eye Exam: Bilateral Eye: EOMI, Normal Inspection, PERRL (3mm) Neck: Normal Inspection, Supple, Non-Tender, Full Range of Motion. No: Lymphadenopathy (L), Lymphadenopathy (R) Respiratory/Chest: Chest Non-Tender, Respiratory Distress, Wheezing (Inspiratory wheezes diffuse to all lobes, bilaterally), Accessory Muscle Use. No: Lungs Clear, Crackles, Rales, Rhonchi Cardiovascular: Normal Peripheral Pulses, No Edema, No Gallop, No JVD, No Murmur, No Rub, Irregularly Irregular (V-paced rhythm ) Peripheral Pulses: 2+: Radial (L), Radial (R) GI/Abdominal: Soft, No Organomegaly, No Distention, No Mass, Pelvis Stable, Abnormal Bowel Sounds (Hypoactive) (Male) Exam: Deferred Rectal (Males) Exam: Deferred Back Exam: Normal Inspection, Full Range of Motion Extremities: Normal Range of Motion, Non-Tender, Normal Capillary Refill, Other (Right BKA) Neurological: Alert, Oriented, CN II-XII Intact, Normal Cognition, No Motor/Sensory Deficits, Abnormal Gait (Wheelchair used for mobility due to R BKA) Psychiatric: Normal Affect, Normal Mood Skin Exam: Warm, Dry, Intact, No Rash, Pallor. No: Ecchymosis, Erythema, Jaundice, Mottled, Petechiae #1 Interpretation EKG Date: 07/04/20 Time: 23:05 Rhythm: Other (V-Paced with 100% capture and 100% sensing) Rate (Beats/Min): 70 [place]: LAD-Left [place] Deviation P-Wave: Absent QRS: LBBB ST-T: Normal QT: Normal Comparison: No Change EKG Interpretation Comments: V-Paced; LAD; No evidence of myocardial ischemia Course - Vital Signs Last Recorded V/S: Last Vital Signs Temp 98.9 F 07/06/20 08:00 Pulse 79 07/06/20 08:00 Resp 18 07/06/20 08:00 BP 110/58 L 07/06/20 08:00 Pulse Ox 96 07/06/20 08:00 - Orders/Labs/Meds Labs: Laboratory Tests 07/04/20 07/04/20 07/04/20 Range/Units 22:08 22:08 22:08 WBC 14.6 H (5.0-10.0) 10^3/uL RBC 4.63 (4.6-6.2) 10^6/uL Hgb 10.8 L D (14.0-18.0) g/dL Hct 38.1 L (40.0-54.0) % MCV 82.3 (80-100) fL MCH 23.3 L (27.0-34.0) pg MCHC 28.3 L (33.0-35.0) g/dL Plt Count 215 (150-450) 10^3/uL Neut % (Auto) 92.4 H (42.2-75.2) % Lymph % (Auto) 3.0 L (20.5-50.1) % [place] % (Auto) 3.6 (2-8) % Eos % (Auto) 0.7 L (1.0-3.0) % Baso % (Auto) 0.3 (0.0-1.0) % PT 19.0 H (9.0-12.0) SEC INR 1.9 H (0.9-1.2) APTT 30.0 (22.0-34.0) SEC D-Dimer, Quantitative (0-400) ng/mL Sodium 137 (136-145) mmol/L Potassium 4.6 (3.5-5.1) mmol/L Chloride 100 (98-107) mmol/L Carbon Dioxide 27 (21-32) mmol/L Anion Gap 14.6 H (7-13) mEq/L BUN 40 H (7-18) mg/dL Creatinine 1.67 H (0.70-1.30) mg/dL Est Cr Clr Drug Dosing 38.25 mL/min Estimated GFR (MDRD) 40 BUN/Creatinine Ratio 24.0 (No establ ref range) Glucose 174 H (70-99) mg/dL Lactic Acid (0.4-2.0) mmol/L Calcium 8.4 L (8.5-10.1) mg/dL Magnesium (1.8-2.4) mg/dL Total Bilirubin 0.5 (0.2-1.0) mg/dL AST 32 (15-37) U/L ALT 40 (16-63) U/L Alkaline Phosphatase 110 (46-116) U/L CK-MB (CK-2) (0.0-3.6) ng/mL Troponin I < 0.017 (0.000-0.056) ng/mL C-Reactive Protein 2.2 H (0.0-0.9) mg/dL B-Natriuretic Peptide 2500 H (0-100) pg/ml Total Protein 7.7 (6.4-8.2) g/dL Albumin 2.7 L (3.4-5.0) g/dL Globulin 5.0 Albumin/Globulin Ratio 0.54 SARS-CoV-2 RNA (AMANDA) (NEGATIVE) 07/04/20 07/04/20 07/04/20 Range/Units 22:08 22:08 22:08 WBC (5.0-10.0) 10^3/uL RBC (4.6-6.2) 10^6/uL Hgb (14.0-18.0) g/dL Hct (40.0-54.0) % MCV (80-100) fL MCH (27.0-34.0) pg MCHC (33.0-35.0) g/dL Plt Count (150-450) 10^3/uL Neut % (Auto) (42.2-75.2) % Lymph % (Auto) (20.5-50.1) % [place] % (Auto) (2-8) % Eos % (Auto) (1.0-3.0) % Baso % (Auto) (0.0-1.0) % PT (9.0-12.0) SEC INR (0.9-1.2) APTT (22.0-34.0) SEC D-Dimer, Quantitative 464 H (0-400) ng/mL Sodium (136-145) mmol/L Potassium (3.5-5.1) mmol/L Chloride (98-107) mmol/L Carbon Dioxide (21-32) mmol/L Anion Gap (7-13) mEq/L BUN (7-18) mg/dL Creatinine (0.70-1.30) mg/dL Est Cr Clr Drug Dosing mL/min Estimated GFR (MDRD) BUN/Creatinine Ratio (No establ ref range) Glucose (70-99) mg/dL Lactic Acid 2.2 H* (0.4-2.0) mmol/L Calcium (8.5-10.1) mg/dL Magnesium (1.8-2.4) mg/dL Total Bilirubin (0.2-1.0) mg/dL AST (15-37) U/L ALT (16-63) U/L Alkaline Phosphatase (46-116) U/L CK-MB (CK-2) 0.9 (0.0-3.6) ng/mL Troponin I (0.000-0.056) ng/mL C-Reactive Protein (0.0-0.9) mg/dL B-Natriuretic Peptide (0-100) pg/ml Total Protein (6.4-8.2) g/dL Albumin (3.4-5.0) g/dL Globulin Albumin/Globulin Ratio SARS-CoV-2 RNA (AMANDA) (NEGATIVE) 07/04/20 07/04/20 Range/Units 22:08 23:24 WBC (5.0-10.0) 10^3/uL RBC (4.6-6.2) 10^6/uL Hgb (14.0-18.0) g/dL Hct (40.0-54.0) % MCV (80-100) fL MCH (27.0-34.0) pg MCHC (33.0-35.0) g/dL Plt Count (150-450) 10^3/uL Neut % (Auto) (42.2-75.2) % Lymph % (Auto) (20.5-50.1) % [place] % (Auto) (2-8) % Eos % (Auto) (1.0-3.0) % Baso % (Auto) (0.0-1.0) % PT (9.0-12.0) SEC INR (0.9-1.2) APTT (22.0-34.0) SEC D-Dimer, Quantitative (0-400) ng/mL Sodium (136-145) mmol/L Potassium (3.5-5.1) mmol/L Chloride (98-107) mmol/L Carbon Dioxide (21-32) mmol/L Anion Gap (7-13) mEq/L BUN (7-18) mg/dL Creatinine (0.70-1.30) mg/dL Est Cr Clr Drug Dosing mL/min Estimated GFR (MDRD) BUN/Creatinine Ratio (No establ ref range) Glucose (70-99) mg/dL Lactic Acid (0.4-2.0) mmol/L Calcium (8.5-10.1) mg/dL Magnesium 2.0 (1.8-2.4) mg/dL Total Bilirubin (0.2-1.0) mg/dL AST (15-37) U/L ALT (16-63) U/L Alkaline Phosphatase (46-116) U/L CK-MB (CK-2) (0.0-3.6) ng/mL Troponin I (0.000-0.056) ng/mL C-Reactive Protein (0.0-0.9) mg/dL B-Natriuretic Peptide (0-100) pg/ml Total Protein (6.4-8.2) g/dL Albumin (3.4-5.0) g/dL Globulin Albumin/Globulin Ratio SARS-CoV-2 RNA (AMANDA) Negative (NEGATIVE) Meds: Medications Discontinued Medications Generic Name Dose Route Start Last Admin Trade Name Freq PRN Reason Stop Dose Admin Acetaminophen 650 mg 07/05/20 00:34 Acetaminophen 325 Mg Tab PO Q4H PRN Pain (Mild 1-3)/fever Albuterol 2.5 mg 07/05/20 00:34 Albuterol 0.083% 2.5 Mg/3 Ml Neb Soln NEB Q2H PRN shortness of breath/wheezing Albuterol/Ipratropium 3 ml 07/04/20 22:05 07/04/20 22:16 Albuterol/Ipratropium 3.0-0.5 Mg/3 Ml Neb Soln NEB 07/04/20 22:06 3 ml ONETIME ONE Administration Atorvastatin Calcium 10 mg 07/05/20 21:00 07/05/20 20:20 Atorvastatin 10 Mg Tab PO 10 mg BEDTIME PEGGY Administration Docusate Sodium 100 mg 07/05/20 00:34 Docusate Sodium 100 Mg Cap PO BID PRN Constipation Ferrous Sulfate 325 mg 07/05/20 09:00 07/06/20 08:28 Ferrous Sulfate 325 Mg Tab PO 325 mg BID PEGGY Administration Levofloxacin/Dextrose 750 mg/ 150 mls @ 100 mls/hr 07/04/20 23:20 07/04/20 23:37 Premix IV 07/05/20 00:49 100 mls/hr ONETIME ONE Administration Levofloxacin/Dextrose 500 mg/ 100 mls @ 100 mls/hr 07/05/20 00:45 07/05/20 03:21 Premix IV Not Given Q24H PEGGY Sacubitril/Valsartan 1 tab 07/05/20 21:00 07/06/20 08:29 (Entresto) 49 Mg/51 PO 1 tab Mg Tab Own Med BID PEGGY Administration Ondansetron HCl 4 mg 07/05/20 00:34 Ondansetron 4 Mg/2 Ml Sdv IVPUSH Q4H PRN Nausea/Vomiting Potassium Chloride 20 meq 07/05/20 09:00 07/06/20 08:27 Potassium Chloride 10 Meq Tab.Er PO 20 meq DAILY PEGGY Administration Tamsulosin HCl 0.4 mg 07/05/20 21:00 07/05/20 20:20 Tamsulosin 0.4 Mg Cap.Er PO 0.4 mg BEDTIME PEGGY Administration Torsemide 80 mg 07/05/20 09:00 07/06/20 08:27 Torsemide 20 Mg Tab PO 80 mg DAILY PEGGY Administration Warfarin Sodium 1 dose 07/05/20 00:45 Pharmacy To Dose - Warfarin .XX [facility]RECTED [facility] Warfarin Sodium 5 mg 07/05/20 14:00 07/05/20 13:10 Warfarin 5 Mg Tab PO 07/05/20 14:01 5 mg ONETIME ONE Administration Warfarin Sodium 5 mg 07/06/20 14:00 Warfarin 5 Mg Tab PO 07/06/20 14:01 ONETIME ONE - Radiology Interpretation Free Text/Narrative:: [facility] Final Radiology Report Call: [phone] assistance Online chat: [email or web address] Name: FARHANA WRIGHT Age: 75Years M Date: 07/04/2020 SSN: -- : [id number] Study: CR CHEST 1V FRONTAL Requesting Physician: Nayana Cooper Images: 1 Addl Studies: Provided Clinical History: Chest pain Contrast: Contrast Medium: Contrast Amount: Contrast Method: Page 1 of 2 PROCEDURE INFORMATION: Exam: XR Chest Exam date and time: 07/04/2020 10:13 PM Age: 75 years old Clinical indication: Chest pain; Prior surgery; Surgery date: 6+ months; Surgery type: Pacemaker TECHNIQUE: Imaging protocol: XR of the chest Views: 1 view. COMPARISON: CR Chest 2V 06/01/2020 11:17 PM FINDINGS: Tubes, catheters and devices: Left chest AICD device. Lungs: Chronic subsegmental right lung base airspace disease may represent atelectasis. This has some improvement since 06/01/2020. There is a developing area of airspace consolidation in the left lower lobe which appears new since the previous study. Cannot exclude early or mild left lower lobe infiltrate. Pleural spaces: No subhash pleural effusions. Heart/Mediastinum: No cardiac enlargement. Bones/joints: Unremarkable. IMPRESSION: 1. Minor residual right basal subsegmental atelectasis. 2. Mild airspace disease in the left lower lobe may represent an early or minor infiltrate. 3. No gross pleural effusions. 4. Left chest AICD device. Thank you for allowing us to participate in the care of your patient. Dictated and Authenticated by: Yassine Leos MD 07/04/2020 10:39 PM Central Time ([place] & [place]) - Re-Assessments/Exams Free Text/Narrative Re-Assessment/Exam: 07/04/20 DuoNeb ordered for wheezing and increased work of breathing. Patient verbalized improvement in work of breathing following DuoNeb CBC reveals elevated WBC at 14.6 with significant left shift present. Normocytic, hypochromic anemia noted, which is stable for patient with Hgb 10.8. Creatinine 1.67 with GFR 40, chronic and stable for patient. BNP elevation at 2500 which is chronic and stable for patient. Electrolytes and liver functions appropriate via CMP. Lactic acid elevation appreciated at 2.2 COVID negative. CXR remarkable for possible left lower lung infiltrate. Will start Levofloxacin IV Given exam, presentation, CXR, and elevated WBC, case discussed with Dr. Mcpherson who kindly agreed to accept patient for inpatient admission. Findings of exam, lab work, and imaging discussed with patient and ; both are agreeable to inpatient admission at this facility. Departure - Departure Time of Disposition: 00:07 Disposition: Admitted As Inpatient 64 Clinical Impression: CHF, Congestive heart failure, History of below-knee amputation of right lower extremity, Paced rhythm on electrocardiogram (ECG), SOB (shortness of breath), Chronic anticoagulation Pneumonia Qualifiers: Pneumonia type: due to unspecified organism Laterality: left Lung location: lower lobe of lung Qualified Code(s): J18.9 - Pneumonia, unspecified organism Diabetes mellitus type II, controlled Qualifiers: Diabetes mellitus intermediate insulin use: without intermediate card tender use Diabetes mellitus complication status: with unspecified complications Qualified Code(s): E11.8 - Type 2 diabetes mellitus with unspecified complications Anemia Qualifiers: Anemia type: due to chronic kidney disease Chronic kidney disease stage: unspecified stage Qualified Code(s): N18.9 - Chronic kidney disease, unspecified - Discharge Information
--- NOTE | 2020-07-04 22:40 | CR ---
PROCEDURE INFORMATION: Exam: XR Chest Exam date and time: 07/04/2020 10:13 PM Age: 75 years old Clinical indication: Chest pain; Prior surgery; Surgery date: 6+ months; Surgery type: Pacemaker TECHNIQUE: Imaging protocol: XR of the chest Views: 1 view. COMPARISON: CR Chest 2V 06/01/2020 11:17 PM FINDINGS: Tubes, catheters and devices: Left chest AICD device. Lungs: Chronic subsegmental right lung base airspace disease may represent atelectasis. This has some improvement since 06/01/2020. There is a developing area of airspace consolidation in the left lower lobe which appears new since the previous study. Cannot exclude early or mild left lower lobe infiltrate. Pleural spaces: No subhash pleural effusions. Heart/Mediastinum: No cardiac enlargement. Bones/joints: Unremarkable. IMPRESSION: 1. Minor residual right basal subsegmental atelectasis. 2. Mild airspace disease in the left lower lobe may represent an early or minor infiltrate. 3. No gross pleural effusions. 4. Left chest AICD device.
[2020-07-04 22:47] LABS: ANION GAP 14.6 mEq/L (7-13); CHLORIDE,CL 100 mmol/L (98-107); SODIUM,NA 137 mmol/L (136-145)
[2020-07-04] MEDS ORDERED: Levofloxacin/Dextrose 5%-Water 750 MG in Premix Bag 1 BAG IV ONE (23:20)
[2020-07-05] MEDS ORDERED: Ondansetron 4 MG/2 ML SDV IVPUSH PRN (00:34)
[2020-07-05] MEDS ORDERED: Acetaminophen 325 MG Tab PO PRN (00:34)
[2020-07-05] MEDS ORDERED: Docusate Sodium 100 MG Cap PO PRN (00:34)
[2020-07-05] MEDS ORDERED: Albuterol 0.083% 2.5 MG/3 ML Neb Soln NEB PRN (00:34)
[2020-07-05] MEDS ORDERED: Levofloxacin/Dextrose 5%-Water 500 MG in Premix Bag 1 BAG IV SCH (00:45)
--- NOTE | 2020-07-05 00:52 | PCM.HP ---
H&P History of Present Illness - General Date of Service: 07/05/20 Admit Problem/Dx: Admission Diagnosis/Problem Admission Diagnosis/Problem Pneumonia Source of Information: Patient, Family, Provider (ER) History Limitations: Reports: No Limitations - History of Present Illness Initial Comments - Free Text/Narative: Patient presents to the ED via personal vehicle with for complaints of shortness of breath. The patient states the shortness of breath began abruptly at approximately 1900 this evening. He does report a history of CHF, DM II, s/p right BKA, and paced rhythm; he follows with Tierra Crowe at [facility] in [place] for CHF. The patient was seen in this ED about one month ago for similar symptoms and was subsequently sent to [facility] for right pleural effusion superimposed on CHF exacerbation. He states no med changes were made following discharge from [facility]. He denies recent illness, fever, shaking chills, cough, sore throat, chest pain, palpitations, nausea, or vomiting. He denies a history of COVID infection and is currently fully vaccinated against COVID. He denies tobacco, alcohol, or recreational drug use. pt reports marked improvement of his symptoms after Nebulizer treatment in er Onset of Symptoms: Reports: Sudden Duration of Symptoms: Reports: Hour(s): - Related Data Allergies/Adverse Reactions: Allergies Allergy/AdvReac Type Severity Reaction Status Date / Time No Known Allergies Allergy Verified 06/01/20 23:53 Home Medications: Home Meds Aspirin [Low Dose Aspirin EC] 81 mg PO DAILY 03/12/14 [History] Cyanocobalamin (Vitamin B-12) [Vitamin B-12] 2,500 mcg SL DAILY 03/12/14 [History] Tamsulosin HCl 0.4 mg PO BEDTIME 03/12/14 [History] atorvaSTATin [Lipitor] 10 mg PO BEDTIME 06/16/14 [History] Warfarin [Coumadin] 5 mg PO DAILY 05/23/17 [History] Sacubitril/Valsartan [Entresto 49 mg-51 mg Tablet] 1 tab PO BID 02/26/20 [History] Ferrous Sulfate 325 mg PO BID 07/05/20 [History] Potassium Chloride [Klor-Con 10] 20 meq PO DAILY 07/05/20 [History] Torsemide 80 mg PO DAILY 07/05/20 [History] Past Medical History HEENT History: Reports: Cataract, Impaired Vision Cardiovascular History: Reports: Heart Failure, High Cholesterol, Hypertension, Pacemaker, Other (See Below) Other Cardiovascular History: Heart Attack, defib/pacemaker Respiratory History: Reports: SOB Gastrointestinal History: Reports: Hiatal Hernia Genitourinary History: Reports: BPH, Renal Calculus Musculoskeletal History: Reports: Other (See Below) Other Musculoskeletal History: right below the knee amputation Neurological History: Reports: CVA Psychiatric History: Reports: None Endocrine/Metabolic History: Reports: Diabetes, Type II Hematologic History: Reports: B12 Deficiency Immunologic History: Reports: None Oncologic (Cancer) History: Reports: None Dermatologic History: Reports: None - Infectious Disease History Infectious Disease History: Reports: Chicken Pox, Measles, Mumps - Past Surgical History Head Surgeries/Procedures: Reports: None HEENT Surgical History: Reports: Adenoidectomy, Cataract Surgery, Tonsillectomy Cardiovascular Surgical History: Reports: None Respiratory Surgical History: Reports: None GI Surgical History: Reports: Appendectomy Male Surgical History: Reports: None Neurological Surgical History: Reports: None Musculoskeletal Surgical History: Reports: Amputation Social & Family History - Family History Family Medical History: Unobtainable Cardiac: Reports: NM Oncologic: Reports: Other (See Below) Other Oncologic Family History: mets - Tobacco Use Tobacco Use Status *Q: Never Tobacco User Second Hand Smoke Exposure: No - Caffeine Use Caffeine Use: Reports: None - Recreational Drug Use Recreational Drug Use: No - Living Situation & Occupation Living situation: Reports: , with Spouse Occupation: Retired H&P Review of Systems - Review of Systems: Review Of Systems: See Below General: Denies: Fever, Chills Pulmonary: Reports: Shortness of Breath Cardiovascular: Denies: Chest Pain Gastrointestinal: Denies: No Symptoms, Abdominal Pain Genitourinary: Denies: Dysuria, Frequency Musculoskeletal: Denies: Neck Pain Skin: Denies: Cyanosis Psychiatric: Denies: Confusion Neurological: Denies: Confusion Exam - Exam Exam: See Below - Vital Signs Vital Signs: Last Vital Signs Temp 97.9 F 07/04/20 22:01 Pulse 65 07/05/20 00:05 Resp 22 H 07/05/20 00:05 BP 95/54 L 07/05/20 00:05 Pulse Ox 100 07/05/20 00:05 Weight: 168 lb - Exam Quality Assessment: Supplemental Oxygen General: Cooperative, Mild Distress HEENT: Conjunctiva Clear Lungs: Decreased Breath Sounds Cardiovascular: Regular Rhythm GI/Abdominal Exam: Soft (Male) Exam: Normal Inspection Rectal (Males) Exam: Deferred Back Exam: Full Range of Motion Extremities: Normal Range of Motion Neurological: Cranial Nerves Intact Neuro Extensive - Mental Status: Alert, Oriented x3 Neuro Extensive - Motor, Sensory, Reflexes: CN II-XII Intact, Normal Gait Psychiatric: Alert, Normal Affect - Patient Data Lab Results Last 24 hrs: Laboratory Results - last 24 hr 07/04/20 07/04/20 07/04/20 Range/Units 22:08 22:08 22:08 WBC 14.6 H (5.0-10.0) 10^3/uL RBC 4.63 (4.6-6.2) 10^6/uL Hgb 10.8 L D (14.0-18.0) g/dL Hct 38.1 L (40.0-54.0) % MCV 82.3 (80-100) fL MCH 23.3 L (27.0-34.0) pg MCHC 28.3 L (33.0-35.0) g/dL Plt Count 215 (150-450) 10^3/uL Neut % (Auto) 92.4 H (42.2-75.2) % Lymph % (Auto) 3.0 L (20.5-50.1) % [place] % (Auto) 3.6 (2-8) % Eos % (Auto) 0.7 L (1.0-3.0) % Baso % (Auto) 0.3 (0.0-1.0) % PT 19.0 H (9.0-12.0) SEC INR 1.9 H (0.9-1.2) APTT 30.0 (22.0-34.0) SEC D-Dimer, Quantitative (0-400) ng/mL Sodium 137 (136-145) mmol/L Potassium 4.6 (3.5-5.1) mmol/L Chloride 100 (98-107) mmol/L Carbon Dioxide 27 (21-32) mmol/L Anion Gap 14.6 H (7-13) mEq/L BUN 40 H (7-18) mg/dL Creatinine 1.67 H (0.70-1.30) mg/dL Est Cr Clr Drug Dosing 38.25 mL/min Estimated GFR (MDRD) 40 BUN/Creatinine Ratio 24.0 (No establ ref range) Glucose 174 H (70-99) mg/dL Lactic Acid (0.4-2.0) mmol/L Calcium 8.4 L (8.5-10.1) mg/dL Total Bilirubin 0.5 (0.2-1.0) mg/dL AST 32 (15-37) U/L ALT 40 (16-63) U/L Alkaline Phosphatase 110 (46-116) U/L CK-MB (CK-2) (0.0-3.6) ng/mL Troponin I < 0.017 (0.000-0.056) ng/mL C-Reactive Protein 2.2 H (0.0-0.9) mg/dL B-Natriuretic Peptide 2500 H (0-100) pg/ml Total Protein 7.7 (6.4-8.2) g/dL Albumin 2.7 L (3.4-5.0) g/dL Globulin 5.0 Albumin/Globulin Ratio 0.54 SARS-CoV-2 RNA (AMANDA) (NEGATIVE) 07/04/20 07/04/20 07/04/20 Range/Units 22:08 22:08 22:08 WBC (5.0-10.0) 10^3/uL RBC (4.6-6.2) 10^6/uL Hgb (14.0-18.0) g/dL Hct (40.0-54.0) % MCV (80-100) fL MCH (27.0-34.0) pg MCHC (33.0-35.0) g/dL Plt Count (150-450) 10^3/uL Neut % (Auto) (42.2-75.2) % Lymph % (Auto) (20.5-50.1) % [place] % (Auto) (2-8) % Eos % (Auto) (1.0-3.0) % Baso % (Auto) (0.0-1.0) % PT (9.0-12.0) SEC INR (0.9-1.2) APTT (22.0-34.0) SEC D-Dimer, Quantitative 464 H (0-400) ng/mL Sodium (136-145) mmol/L Potassium (3.5-5.1) mmol/L Chloride (98-107) mmol/L Carbon Dioxide (21-32) mmol/L Anion Gap (7-13) mEq/L BUN (7-18) mg/dL Creatinine (0.70-1.30) mg/dL Est Cr Clr Drug Dosing mL/min Estimated GFR (MDRD) BUN/Creatinine Ratio (No establ ref range) Glucose (70-99) mg/dL Lactic Acid 2.2 H* (0.4-2.0) mmol/L Calcium (8.5-10.1) mg/dL Total Bilirubin (0.2-1.0) mg/dL AST (15-37) U/L ALT (16-63) U/L Alkaline Phosphatase (46-116) U/L CK-MB (CK-2) 0.9 (0.0-3.6) ng/mL Troponin I (0.000-0.056) ng/mL C-Reactive Protein (0.0-0.9) mg/dL B-Natriuretic Peptide (0-100) pg/ml Total Protein (6.4-8.2) g/dL Albumin (3.4-5.0) g/dL Globulin Albumin/Globulin Ratio SARS-CoV-2 RNA (AMANDA) (NEGATIVE) 07/04/20 Range/Units 23:24 WBC (5.0-10.0) 10^3/uL RBC (4.6-6.2) 10^6/uL Hgb (14.0-18.0) g/dL Hct (40.0-54.0) % MCV (80-100) fL MCH (27.0-34.0) pg MCHC (33.0-35.0) g/dL Plt Count (150-450) 10^3/uL Neut % (Auto) (42.2-75.2) % Lymph % (Auto) (20.5-50.1) % [place] % (Auto) (2-8) % Eos % (Auto) (1.0-3.0) % Baso % (Auto) (0.0-1.0) % PT (9.0-12.0) SEC INR (0.9-1.2) APTT (22.0-34.0) SEC D-Dimer, Quantitative (0-400) ng/mL Sodium (136-145) mmol/L Potassium (3.5-5.1) mmol/L Chloride (98-107) mmol/L Carbon Dioxide (21-32) mmol/L Anion Gap (7-13) mEq/L BUN (7-18) mg/dL Creatinine (0.70-1.30) mg/dL Est Cr Clr Drug Dosing mL/min Estimated GFR (MDRD) BUN/Creatinine Ratio (No establ ref range) Glucose (70-99) mg/dL Lactic Acid (0.4-2.0) mmol/L Calcium (8.5-10.1) mg/dL Total Bilirubin (0.2-1.0) mg/dL AST (15-37) U/L ALT (16-63) U/L Alkaline Phosphatase (46-116) U/L CK-MB (CK-2) (0.0-3.6) ng/mL Troponin I (0.000-0.056) ng/mL C-Reactive Protein (0.0-0.9) mg/dL B-Natriuretic Peptide (0-100) pg/ml Total Protein (6.4-8.2) g/dL Albumin (3.4-5.0) g/dL Globulin Albumin/Globulin Ratio SARS-CoV-2 RNA (AMANDA) Negative (NEGATIVE) Result Diagrams: 07/04/20 22:08 07/04/20 22:08 Problem List Initiated/Reviewed/Updated: Yes Orders Last 24hrs: Active Orders 24 hr Category Date Time Status Admission Diagnosis [ADT] Stat ADT 07/04/20 23:28 Ordered Patient Status [ADT] Routine ADT 07/04/20 23:28 Active Blood Glucose Check, Bedside [RC] WITHMEALSANDBED Care 07/05/20 00:34 Ordered Cardiac Monitoring [RC] CONTINUOUS Care 07/05/20 00:36 Ordered Height and Weight [RC] DAILY Care 07/05/20 00:34 Ordered Intake and Output [RC] QSHIFT Care 07/05/20 00:36 Ordered Oxygen Therapy [RC] PRN Care 07/05/20 00:35 Ordered Pulse Oximetry [RC] CONTINUOUS Care 07/05/20 00:36 Ordered RT Aerosol Therapy [RC] ASDIRECTED Care 07/04/20 22:05 Active RT Aerosol Therapy [RC] ASDIRECTED Care 07/05/20 00:39 Ordered Up With Assistance [RC] ASDIRECTED Care 07/05/20 00:34 Ordered VTE/DVT Education [RC] PER UNIT ROUTINE Care 07/05/20 00:35 Ordered Vital Signs [RC] Q4H Care 07/05/20 00:35 Ordered OT Evaluation and Treatment [CONS] Routine Cons 07/05/20 00:34 Ordered PT Evaluation and Treatment [CONS] Routine Cons 07/05/20 00:34 Ordered Heart Healthy Diet [DIET] Diet 07/05/20 Breakfast Ordered MAGNESIUM [CHEM] DAILY Lab 07/05/20 00:45 Ordered MAGNESIUM [CHEM] DAILY Lab 07/06/20 00:45 Ordered MAGNESIUM [CHEM] DAILY Lab 07/07/20 00:45 Ordered MAGNESIUM [CHEM] DAILY Lab 07/08/20 00:45 Ordered MAGNESIUM [CHEM] DAILY Lab 07/09/20 00:45 Ordered MAGNESIUM [CHEM] DAILY Lab 07/10/20 00:45 Ordered MAGNESIUM [CHEM] DAILY Lab 07/11/20 00:45 Ordered REFLEX LACTIC ACID YES OR NO [CHEM] Routine Lab 07/04/20 22:53 Received TROPONIN I [CHEM] AM Lab 07/05/20 05:11 Ordered Acetaminophen [TylenoL] Med 07/05/20 00:34 Ordered 650 mg PO Q4H PRN Albuterol [Proventil Neb Soln] Med 07/05/20 00:34 Ordered 2.5 mg NEB Q2H PRN Docusate Sodium [Colace] Med 07/05/20 00:34 Ordered 100 mg PO BID PRN Levofloxacin/Dextrose 5%-Water [Levaquin in D5W 500 MG/ Med 07/05/20 00:45 Ordered 100 ML] 500 mg Premix Bag 1 bag IV Q24H Levofloxacin/Dextrose 5%-Water [Levaquin in D5W 750 MG/ Med 07/04/20 23:20 Active 150 ML] 750 mg Premix Bag 1 bag IV ONETIME Ondansetron [Zofran] Med 07/05/20 00:34 Ordered 4 mg IVPUSH Q4H PRN Pharmacy to Dose - Warfarin Med 07/05/20 00:45 Ordered 1 dose .XX ASDIRECTED Resuscitation Status Routine Resus Stat 07/05/20 00:34 Ordered Medication Orders Acetaminophen (Acetaminophen 325 Mg Tab) 650 mg PO Q4H PRN PRN Reason: Pain (Mild 1-3)/fever Albuterol (Albuterol 0.083% 2.5 Mg/3 Ml Neb Soln) 2.5 mg NEB Q2H PRN PRN Reason: shortness of breath/wheezing Docusate Sodium (Docusate Sodium 100 Mg Cap) 100 mg PO BID PRN PRN Reason: Constipation Levofloxacin/Dextrose 750 mg/ (Premix) 150 mls @ 100 mls/hr IV ONETIME ONE Stop: 07/05/20 00:49 Last Admin: 07/04/20 23:37 Dose: 100 mls/hr Documented by: KATHNOR Levofloxacin/Dextrose 500 mg/ (Premix) 100 mls @ 100 mls/hr IV Q24H PEGGY Ondansetron HCl (Ondansetron 4 Mg/2 Ml Sdv) 4 mg IVPUSH Q4H PRN PRN Reason: Nausea/Vomiting Warfarin Sodium (Pharmacy To Dose - Warfarin) 1 dose .XX ASDIRECTED PEGGY Assessment/Plan Comment:: SOB: Possible pnemonia H/o CHF seems compensated R/O NM Mild higher D Dimer: Pt has not been ambulating but his is alread y on warfarin and his INR is very close totarget. h/o PVD post RT BKA H/o pacemeker/ ICD add levaquin, nebs, O2 Re Trop Pt is full code as per pt and his
[2020-07-05] MEDS: Torsemide 20 MG Tab PO SCH (09:44)
[2020-07-05] MEDS: Potassium Chloride 10 MEQ Tab.ER PO SCH (09:44)
[2020-07-05] MEDS: Ferrous Sulfate 325 MG Tab PO SCH ×2 (09:45→20:19)
--- NOTE | 2020-07-05 10:51 | PCM.PN ---
- General Info Date of Service: 07/05/20 Admission Dx/Problem (Free Text): Patient presents to the ED with for complaints of shortness of breath. The patient states the shortness of breath began abruptly at approximately 1900 that evening. He does report a history of CHF, DM II, s/p right BKA, and paced rhythm; he follows with Tierra Crowe at [facility] in [place] for CHF. The patient was seen in this ED about one month ago for similar symptoms and was subsequently sent to [facility] for right pleural effusion superimposed on CHF exacerbation. He states no med changes were made following discharge from [facility]. He denies recent illness, fever, shaking chills, cough, sore throat, chest pain, palpitations, nausea, or vomiting. He denies a history of COVID infection and is currently fully vaccinated against COVID. He denies tobacco, alcohol, or recreational drug use. Pt reported marked improvement of his symptoms after Nebulizer treatment in er. CXR showed possible LL pneumonia. Pt was admitted for possible pneumonia and to R/O FL SOB: Much improved. Possible pnemonia: levaquin, nebs, O2 H/o CHF seems compensated. The report of his last echo from 05/26/2019 was obtained and showed EF ~ 25%. for re echo. Continue with home medication and outpt cardiolgy follow up. R/O FL: neg Tro X 2. Mild higher D Dimer: Pt has not been ambulating but his is already on warfarin and his INR is theraputic. h/o PVD post RT BKA: to follow up with OT as outpt. H/o pacemaker/ ICD. Pt is full code as per pt and his Functional Status: Reports: Tolerating Diet - Review of Systems General: Denies: Fever Pulmonary: Denies: Shortness of Breath Cardiovascular: Denies: Chest Pain Gastrointestinal: Denies: Abdominal Pain Neurological: Denies: Confusion Psychiatric: Denies: Confusion - Patient Data Vitals - Most Recent: Last Vital Signs Temp 97.5 F 07/05/20 07:48 Pulse 72 07/05/20 07:48 Resp 20 07/05/20 07:48 BP 101/56 L 07/05/20 07:48 Pulse Ox 100 07/05/20 07:48 Weight - Most Recent: 162 lb 9.6 oz I&O - Last 24 Hours: Intake & Output 07/04/20 07/05/20 07/05/20 22:59 06:59 14:59 Intake Total 225 Output Total 200 Balance -200 225 Lab Results Last 24 Hours: Laboratory Results - last 24 hr 07/04/20 07/04/20 07/04/20 Range/Units 22:08 22:08 22:08 WBC 14.6 H (5.0-10.0) 10^3/uL RBC 4.63 (4.6-6.2) 10^6/uL Hgb 10.8 L D (14.0-18.0) g/dL Hct 38.1 L (40.0-54.0) % MCV 82.3 (80-100) fL MCH 23.3 L (27.0-34.0) pg MCHC 28.3 L (33.0-35.0) g/dL Plt Count 215 (150-450) 10^3/uL Neut % (Auto) 92.4 H (42.2-75.2) % Lymph % (Auto) 3.0 L (20.5-50.1) % [place] % (Auto) 3.6 (2-8) % Eos % (Auto) 0.7 L (1.0-3.0) % Baso % (Auto) 0.3 (0.0-1.0) % PT 19.0 H (9.0-12.0) SEC INR 1.9 H (0.9-1.2) APTT 30.0 (22.0-34.0) SEC D-Dimer, Quantitative (0-400) ng/mL Sodium 137 (136-145) mmol/L Potassium 4.6 (3.5-5.1) mmol/L Chloride 100 (98-107) mmol/L Carbon Dioxide 27 (21-32) mmol/L Anion Gap 14.6 H (7-13) mEq/L BUN 40 H (7-18) mg/dL Creatinine 1.67 H (0.70-1.30) mg/dL Est Cr Clr Drug Dosing 38.25 mL/min Estimated GFR (MDRD) 40 BUN/Creatinine Ratio 24.0 (No establ ref range) Glucose 174 H (70-99) mg/dL POC Glucose (83-110) mg/dl Lactic Acid (0.4-2.0) mmol/L Calcium 8.4 L (8.5-10.1) mg/dL Magnesium (1.8-2.4) mg/dL Total Bilirubin 0.5 (0.2-1.0) mg/dL AST 32 (15-37) U/L ALT 40 (16-63) U/L Alkaline Phosphatase 110 (46-116) U/L CK-MB (CK-2) (0.0-3.6) ng/mL Troponin I < 0.017 (0.000-0.056) ng/mL C-Reactive Protein 2.2 H (0.0-0.9) mg/dL B-Natriuretic Peptide 2500 H (0-100) pg/ml Total Protein 7.7 (6.4-8.2) g/dL Albumin 2.7 L (3.4-5.0) g/dL Globulin 5.0 Albumin/Globulin Ratio 0.54 SARS-CoV-2 RNA (AMANDA) (NEGATIVE) 07/04/20 07/04/20 07/04/20 Range/Units 22:08 22:08 22:08 WBC (5.0-10.0) 10^3/uL RBC (4.6-6.2) 10^6/uL Hgb (14.0-18.0) g/dL Hct (40.0-54.0) % MCV (80-100) fL MCH (27.0-34.0) pg MCHC (33.0-35.0) g/dL Plt Count (150-450) 10^3/uL Neut % (Auto) (42.2-75.2) % Lymph % (Auto) (20.5-50.1) % [place] % (Auto) (2-8) % Eos % (Auto) (1.0-3.0) % Baso % (Auto) (0.0-1.0) % PT (9.0-12.0) SEC INR (0.9-1.2) APTT (22.0-34.0) SEC D-Dimer, Quantitative 464 H (0-400) ng/mL Sodium (136-145) mmol/L Potassium (3.5-5.1) mmol/L Chloride (98-107) mmol/L Carbon Dioxide (21-32) mmol/L Anion Gap (7-13) mEq/L BUN (7-18) mg/dL Creatinine (0.70-1.30) mg/dL Est Cr Clr Drug Dosing mL/min Estimated GFR (MDRD) BUN/Creatinine Ratio (No establ ref range) Glucose (70-99) mg/dL POC Glucose (83-110) mg/dl Lactic Acid 2.2 H* (0.4-2.0) mmol/L Calcium (8.5-10.1) mg/dL Magnesium (1.8-2.4) mg/dL Total Bilirubin (0.2-1.0) mg/dL AST (15-37) U/L ALT (16-63) U/L Alkaline Phosphatase (46-116) U/L CK-MB (CK-2) 0.9 (0.0-3.6) ng/mL Troponin I (0.000-0.056) ng/mL C-Reactive Protein (0.0-0.9) mg/dL B-Natriuretic Peptide (0-100) pg/ml Total Protein (6.4-8.2) g/dL Albumin (3.4-5.0) g/dL Globulin Albumin/Globulin Ratio SARS-CoV-2 RNA (AMANDA) (NEGATIVE) 07/04/20 07/04/20 07/05/20 Range/Units 22:08 23:24 02:30 WBC (5.0-10.0) 10^3/uL RBC (4.6-6.2) 10^6/uL Hgb (14.0-18.0) g/dL Hct (40.0-54.0) % MCV (80-100) fL MCH (27.0-34.0) pg MCHC (33.0-35.0) g/dL Plt Count (150-450) 10^3/uL Neut % (Auto) (42.2-75.2) % Lymph % (Auto) (20.5-50.1) % [place] % (Auto) (2-8) % Eos % (Auto) (1.0-3.0) % Baso % (Auto) (0.0-1.0) % PT (9.0-12.0) SEC INR (0.9-1.2) APTT (22.0-34.0) SEC D-Dimer, Quantitative (0-400) ng/mL Sodium (136-145) mmol/L Potassium (3.5-5.1) mmol/L Chloride (98-107) mmol/L Carbon Dioxide (21-32) mmol/L Anion Gap (7-13) mEq/L BUN (7-18) mg/dL Creatinine (0.70-1.30) mg/dL Est Cr Clr Drug Dosing mL/min Estimated GFR (MDRD) BUN/Creatinine Ratio (No establ ref range) Glucose (70-99) mg/dL POC Glucose (83-110) mg/dl Lactic Acid 1.6 (0.4-2.0) mmol/L Calcium (8.5-10.1) mg/dL Magnesium 2.0 (1.8-2.4) mg/dL Total Bilirubin (0.2-1.0) mg/dL AST (15-37) U/L ALT (16-63) U/L Alkaline Phosphatase (46-116) U/L CK-MB (CK-2) (0.0-3.6) ng/mL Troponin I (0.000-0.056) ng/mL C-Reactive Protein (0.0-0.9) mg/dL B-Natriuretic Peptide (0-100) pg/ml Total Protein (6.4-8.2) g/dL Albumin (3.4-5.0) g/dL Globulin Albumin/Globulin Ratio SARS-CoV-2 RNA (AMANDA) Negative (NEGATIVE) 07/05/20 07/05/20 07/05/20 Range/Units 06:10 06:10 07:31 WBC (5.0-10.0) 10^3/uL RBC (4.6-6.2) 10^6/uL Hgb (14.0-18.0) g/dL Hct (40.0-54.0) % MCV (80-100) fL MCH (27.0-34.0) pg MCHC (33.0-35.0) g/dL Plt Count (150-450) 10^3/uL Neut % (Auto) (42.2-75.2) % Lymph % (Auto) (20.5-50.1) % [place] % (Auto) (2-8) % Eos % (Auto) (1.0-3.0) % Baso % (Auto) (0.0-1.0) % PT 22.0 H (9.0-12.0) SEC INR 2.2 H (0.9-1.2) APTT (22.0-34.0) SEC D-Dimer, Quantitative (0-400) ng/mL Sodium (136-145) mmol/L Potassium (3.5-5.1) mmol/L Chloride (98-107) mmol/L Carbon Dioxide (21-32) mmol/L Anion Gap (7-13) mEq/L BUN (7-18) mg/dL Creatinine (0.70-1.30) mg/dL Est Cr Clr Drug Dosing mL/min Estimated GFR (MDRD) BUN/Creatinine Ratio (No establ ref range) Glucose (70-99) mg/dL POC Glucose 137 H (83-110) mg/dl Lactic Acid (0.4-2.0) mmol/L Calcium (8.5-10.1) mg/dL Magnesium (1.8-2.4) mg/dL Total Bilirubin (0.2-1.0) mg/dL AST (15-37) U/L ALT (16-63) U/L Alkaline Phosphatase (46-116) U/L CK-MB (CK-2) (0.0-3.6) ng/mL Troponin I 0.022 (0.000-0.056) ng/mL C-Reactive Protein (0.0-0.9) mg/dL B-Natriuretic Peptide (0-100) pg/ml Total Protein (6.4-8.2) g/dL Albumin (3.4-5.0) g/dL Globulin Albumin/Globulin Ratio SARS-CoV-2 RNA (AMANDA) (NEGATIVE) Med Orders - Current: Current Medications Acetaminophen (Acetaminophen 325 Mg Tab) 650 mg PO Q4H PRN PRN Reason: Pain (Mild 1-3)/fever Albuterol (Albuterol 0.083% 2.5 Mg/3 Ml Neb Soln) 2.5 mg NEB Q2H PRN PRN Reason: shortness of breath/wheezing Atorvastatin Calcium (Atorvastatin 10 Mg Tab) 10 mg PO BEDTIME PEGGY Docusate Sodium (Docusate Sodium 100 Mg Cap) 100 mg PO BID PRN PRN Reason: Constipation Ferrous Sulfate (Ferrous Sulfate 325 Mg Tab) 325 mg PO BID [facility] Last Admin: 07/05/20 09:45 Dose: 325 mg Documented by: Non-Formulary Medication (Sacubitril/Valsartan) 1 tab PO BID [facility] Ondansetron HCl (Ondansetron 4 Mg/2 Ml Sdv) 4 mg IVPUSH Q4H PRN PRN Reason: Nausea/Vomiting Potassium Chloride (Potassium Chloride 10 Meq Tab.Er) 20 meq PO DAILY [facility] Last Admin: 07/05/20 09:44 Dose: 20 meq Documented by: Tamsulosin HCl (Tamsulosin 0.4 Mg Cap.Er) 0.4 mg PO BEDTIME [facility] Torsemide (Torsemide 20 Mg Tab) 80 mg PO DAILY [facility] Last Admin: 07/05/20 09:44 Dose: 80 mg Documented by: Warfarin Sodium (Pharmacy To Dose - Warfarin) 1 dose .XX ASDIRECTED [facility] Warfarin Sodium (Warfarin 5 Mg Tab) 5 mg PO ONETIME ONE Stop: 07/05/20 14:01 Discontinued Medications Albuterol/Ipratropium (Albuterol/Ipratropium 3.0-0.5 Mg/3 Ml Neb Soln) 3 ml NEB ONETIME ONE Stop: 07/04/20 22:06 Last Admin: 07/04/20 22:16 Dose: 3 ml Documented by: Levofloxacin/Dextrose 750 mg/ (Premix) 150 mls @ 100 mls/hr IV ONETIME ONE Stop: 07/05/20 00:49 Last Admin: 07/04/20 23:37 Dose: 100 mls/hr Documented by: Levofloxacin/Dextrose 500 mg/ (Premix) 100 mls @ 100 mls/hr IV Q24H [facility] Last Admin: 07/05/20 03:21 Dose: Not Given Documented by: - Exam Quality Assessment: Supplemental Oxygen General: Alert, Oriented, No Acute Distress Lungs: Wheezing (left lower lung) Cardiovascular: Regular Rhythm GI/Abdominal Exam: Soft (Male) Exam: Deferred Extremities: Other (RT BKA) Skin: Intact Neurological: No New Focal Deficit Psy/Mental Status: Alert, Normal Affect - Patient Data Lab Results Last 24 hrs: Laboratory Results - last 24 hr 07/04/20 07/04/20 07/04/20 Range/Units 22:08 22:08 22:08 WBC 14.6 H (5.0-10.0) 10^3/uL RBC 4.63 (4.6-6.2) 10^6/uL Hgb 10.8 L D (14.0-18.0) g/dL Hct 38.1 L (40.0-54.0) % MCV 82.3 (80-100) fL MCH 23.3 L (27.0-34.0) pg MCHC 28.3 L (33.0-35.0) g/dL Plt Count 215 (150-450) 10^3/uL Neut % (Auto) 92.4 H (42.2-75.2) % Lymph % (Auto) 3.0 L (20.5-50.1) % [place] % (Auto) 3.6 (2-8) % Eos % (Auto) 0.7 L (1.0-3.0) % Baso % (Auto) 0.3 (0.0-1.0) % PT 19.0 H (9.0-12.0) SEC INR 1.9 H (0.9-1.2) APTT 30.0 (22.0-34.0) SEC D-Dimer, Quantitative (0-400) ng/mL Sodium 137 (136-145) mmol/L Potassium 4.6 (3.5-5.1) mmol/L Chloride 100 (98-107) mmol/L Carbon Dioxide 27 (21-32) mmol/L Anion Gap 14.6 H (7-13) mEq/L BUN 40 H (7-18) mg/dL Creatinine 1.67 H (0.70-1.30) mg/dL Est Cr Clr Drug Dosing 38.25 mL/min Estimated GFR (MDRD) 40 BUN/Creatinine Ratio 24.0 (No establ ref range) Glucose 174 H (70-99) mg/dL POC Glucose (83-110) mg/dl Lactic Acid (0.4-2.0) mmol/L Calcium 8.4 L (8.5-10.1) mg/dL Magnesium (1.8-2.4) mg/dL Total Bilirubin 0.5 (0.2-1.0) mg/dL AST 32 (15-37) U/L ALT 40 (16-63) U/L Alkaline Phosphatase 110 (46-116) U/L CK-MB (CK-2) (0.0-3.6) ng/mL Troponin I < 0.017 (0.000-0.056) ng/mL C-Reactive Protein 2.2 H (0.0-0.9) mg/dL B-Natriuretic Peptide 2500 H (0-100) pg/ml Total Protein 7.7 (6.4-8.2) g/dL Albumin 2.7 L (3.4-5.0) g/dL Globulin 5.0 Albumin/Globulin Ratio 0.54 SARS-CoV-2 RNA (AMANDA) (NEGATIVE) 07/04/20 07/04/20 07/04/20 Range/Units 22:08 22:08 22:08 WBC (5.0-10.0) 10^3/uL RBC (4.6-6.2) 10^6/uL Hgb (14.0-18.0) g/dL Hct (40.0-54.0) % MCV (80-100) fL MCH (27.0-34.0) pg MCHC (33.0-35.0) g/dL Plt Count (150-450) 10^3/uL Neut % (Auto) (42.2-75.2) % Lymph % (Auto) (20.5-50.1) % [place] % (Auto) (2-8) % Eos % (Auto) (1.0-3.0) % Baso % (Auto) (0.0-1.0) % PT (9.0-12.0) SEC INR (0.9-1.2) APTT (22.0-34.0) SEC D-Dimer, Quantitative 464 H (0-400) ng/mL Sodium (136-145) mmol/L Potassium (3.5-5.1) mmol/L Chloride (98-107) mmol/L Carbon Dioxide (21-32) mmol/L Anion Gap (7-13) mEq/L BUN (7-18) mg/dL Creatinine (0.70-1.30) mg/dL Est Cr Clr Drug Dosing mL/min Estimated GFR (MDRD) BUN/Creatinine Ratio (No establ ref range) Glucose (70-99) mg/dL POC Glucose (83-110) mg/dl Lactic Acid 2.2 H* (0.4-2.0) mmol/L Calcium (8.5-10.1) mg/dL Magnesium (1.8-2.4) mg/dL Total Bilirubin (0.2-1.0) mg/dL AST (15-37) U/L ALT (16-63) U/L Alkaline Phosphatase (46-116) U/L CK-MB (CK-2) 0.9 (0.0-3.6) ng/mL Troponin I (0.000-0.056) ng/mL C-Reactive Protein (0.0-0.9) mg/dL B-Natriuretic Peptide (0-100) pg/ml Total Protein (6.4-8.2) g/dL Albumin (3.4-5.0) g/dL Globulin Albumin/Globulin Ratio SARS-CoV-2 RNA (AMANDA) (NEGATIVE) 07/04/20 07/04/20 07/05/20 Range/Units 22:08 23:24 02:30 WBC (5.0-10.0) 10^3/uL RBC (4.6-6.2) 10^6/uL Hgb (14.0-18.0) g/dL Hct (40.0-54.0) % MCV (80-100) fL MCH (27.0-34.0) pg MCHC (33.0-35.0) g/dL Plt Count (150-450) 10^3/uL Neut % (Auto) (42.2-75.2) % Lymph % (Auto) (20.5-50.1) % [place] % (Auto) (2-8) % Eos % (Auto) (1.0-3.0) % Baso % (Auto) (0.0-1.0) % PT (9.0-12.0) SEC INR (0.9-1.2) APTT (22.0-34.0) SEC D-Dimer, Quantitative (0-400) ng/mL Sodium (136-145) mmol/L Potassium (3.5-5.1) mmol/L Chloride (98-107) mmol/L Carbon Dioxide (21-32) mmol/L Anion Gap (7-13) mEq/L BUN (7-18) mg/dL Creatinine (0.70-1.30) mg/dL Est Cr Clr Drug Dosing mL/min Estimated GFR (MDRD) BUN/Creatinine Ratio (No establ ref range) Glucose (70-99) mg/dL POC Glucose (83-110) mg/dl Lactic Acid 1.6 (0.4-2.0) mmol/L Calcium (8.5-10.1) mg/dL Magnesium 2.0 (1.8-2.4) mg/dL Total Bilirubin (0.2-1.0) mg/dL AST (15-37) U/L ALT (16-63) U/L Alkaline Phosphatase (46-116) U/L CK-MB (CK-2) (0.0-3.6) ng/mL Troponin I (0.000-0.056) ng/mL C-Reactive Protein (0.0-0.9) mg/dL B-Natriuretic Peptide (0-100) pg/ml Total Protein (6.4-8.2) g/dL Albumin (3.4-5.0) g/dL Globulin Albumin/Globulin Ratio SARS-CoV-2 RNA (AMANDA) Negative (NEGATIVE) 07/05/20 07/05/20 07/05/20 Range/Units 06:10 06:10 07:31 WBC (5.0-10.0) 10^3/uL RBC (4.6-6.2) 10^6/uL Hgb (14.0-18.0) g/dL Hct (40.0-54.0) % MCV (80-100) fL MCH (27.0-34.0) pg MCHC (33.0-35.0) g/dL Plt Count (150-450) 10^3/uL Neut % (Auto) (42.2-75.2) % Lymph % (Auto) (20.5-50.1) % [place] % (Auto) (2-8) % Eos % (Auto) (1.0-3.0) % Baso % (Auto) (0.0-1.0) % PT 22.0 H (9.0-12.0) SEC INR 2.2 H (0.9-1.2) APTT (22.0-34.0) SEC D-Dimer, Quantitative (0-400) ng/mL Sodium (136-145) mmol/L Potassium (3.5-5.1) mmol/L Chloride (98-107) mmol/L Carbon Dioxide (21-32) mmol/L Anion Gap (7-13) mEq/L BUN (7-18) mg/dL Creatinine (0.70-1.30) mg/dL Est Cr Clr Drug Dosing mL/min Estimated GFR (MDRD) BUN/Creatinine Ratio (No establ ref range) Glucose (70-99) mg/dL POC Glucose 137 H (83-110) mg/dl Lactic Acid (0.4-2.0) mmol/L Calcium (8.5-10.1) mg/dL Magnesium (1.8-2.4) mg/dL Total Bilirubin (0.2-1.0) mg/dL AST (15-37) U/L ALT (16-63) U/L Alkaline Phosphatase (46-116) U/L CK-MB (CK-2) (0.0-3.6) ng/mL Troponin I 0.022 (0.000-0.056) ng/mL C-Reactive Protein (0.0-0.9) mg/dL B-Natriuretic Peptide (0-100) pg/ml Total Protein (6.4-8.2) g/dL Albumin (3.4-5.0) g/dL Globulin Albumin/Globulin Ratio SARS-CoV-2 RNA (AMANDA) (NEGATIVE) Result Diagrams: 07/04/20 22:08 07/04/20 22:08 Sepsis Event Note - Evaluation Sepsis Screening Result: No Definite Risk - Focused Exam Vital Signs: Vital Signs Temp Pulse Resp BP BP Pulse Ox 07/05/20 07:48 97.5 F 72 20 101/56 L 100 07/05/20 04:00 77 20 93 L 07/05/20 03:22 98 07/05/20 01:54 98.9 F 78 24 H 110/49 L 111/57 L 100 07/05/20 00:05 65 22 H 95/54 L 100 - Problem List Review Problem List Initiated/Reviewed/Updated: Yes - My Orders Last 24 Hours: My Active Orders 07/05/20 00:34 Blood Glucose Check, Bedside [RC] WITHMEALSANDBED Height and Weight [RC] 0600 Up With Assistance [RC] ASDIRECTED OT Evaluation and Treatment [CONS] Routine PT Evaluation and Treatment [CONS] Routine Acetaminophen [TylenoL] 650 mg PO Q4H PRN Albuterol [Proventil Neb Soln] 2.5 mg NEB Q2H PRN Docusate Sodium [Colace] 100 mg PO BID PRN Ondansetron [Zofran] 4 mg IVPUSH Q4H PRN Resuscitation Status Routine 07/05/20 00:35 Oxygen Therapy [RC] PRN VTE/DVT Education [RC] ,22 Vital Signs [RC] 00,04,08,12,16,20 07/05/20 00:36 Cardiac Monitoring [RC] 08,20 Intake and Output [RC] 06,14,07/05/20 00:39 RT Aerosol Therapy [RC] ASDIRECTED 07/05/20 00:45 Pharmacy to Dose - Warfarin 1 dose .XX ASDIRECTED 07/05/20 Breakfast Heart Healthy Diet [DIET] 07/05/20 09:00 Ferrous Sulfate 325 mg PO BID Potassium Chloride [Klor-Con 10] 20 meq PO DAILY Sacubitril/Valsartan 1 tab PO BID Torsemide [Demadex] 80 mg PO DAILY 07/05/20 14:00 Warfarin [Coumadin] 5 mg PO ONETIME ONE 07/05/20 21:00 Tamsulosin [Flomax] 0.4 mg PO BEDTIME atorvaSTATin [Lipitor] 10 mg PO BEDTIME 07/06/20 00:45 MAGNESIUM [CHEM] DAILY 07/06/20 06:00 INR,PT,PROTHROMBIN TIME [COAG] DAILY 07/07/20 00:45 MAGNESIUM [CHEM] DAILY 07/07/20 06:00 INR,PT,PROTHROMBIN TIME [COAG] DAILY 07/08/20 00:45 MAGNESIUM [CHEM] DAILY 07/08/20 06:00 INR,PT,PROTHROMBIN TIME [COAG] DAILY 07/09/20 00:45 MAGNESIUM [CHEM] DAILY 07/09/20 06:00 INR,PT,PROTHROMBIN TIME [COAG] DAILY 07/10/20 00:45 MAGNESIUM [CHEM] DAILY 07/10/20 06:00 INR,PT,PROTHROMBIN TIME [COAG] DAILY 07/11/20 00:45 MAGNESIUM [CHEM] DAILY 07/11/20 06:00 INR,PT,PROTHROMBIN TIME [COAG] DAILY 07/12/20 06:00 INR,PT,PROTHROMBIN TIME [COAG] DAILY - Plan Plan:: SOB: Possible pnemonia H/o CHF seems compensated R/O [place] Mild higher D Dimer: Pt has not been ambulating but his is alread y on warfarin and his INR is very close totarget. h/o PVD post RT BKA H/o pacemeker/ ICD add levaquin, nebs, O2 Re Trop Pt is full code as per pt and his
[2020-07-05] MEDS ORDERED: Warfarin 5 MG Tab PO ONE (14:00)
[2020-07-05] MEDS: SACUBITRIL PO SCH (20:19)
[2020-07-05] MEDS: VALSARTAN PO SCH (20:19)
[2020-07-05] MEDS ORDERED: Tamsulosin 0.4 MG Cap.ER PO SCH (21:00)
[2020-07-05] MEDS ORDERED: atorvaSTATin 10 MG Tab PO SCH (21:00)
[2020-07-06 08:11] VITALS: BP 110/58; PULSE 79
[2020-07-06] MEDS: Potassium Chloride 10 MEQ Tab.ER PO SCH (08:27)
[2020-07-06] MEDS: Torsemide 20 MG Tab PO SCH (08:27)
[2020-07-06] MEDS: Ferrous Sulfate 325 MG Tab PO SCH (08:28)
[2020-07-06] MEDS: VALSARTAN PO SCH (08:29)
[2020-07-06] MEDS: SACUBITRIL PO SCH (08:29)
--- NOTE | 2020-07-06 08:47 | PCM.DCSUM1 ---
Discharge Summary - Hospital Course Free Text/Narrative:: Patient presents to the ED with for complaints of shortness of breath. The patient states the shortness of breath began abruptly at approximately 1900 that evening. He does report a history of CHF, DM II, s/p right BKA, and paced rhythm; he follows with Tierra Crowe at [facility] in [place] for CHF. The patient was seen in this ED about one month ago for similar symptoms and was subsequently sent to [facility] for right pleural effusion superimposed on CHF exacerbation. He states no med changes were made following discharge from [facility]. He denies recent illness, fever, shaking chills, cough, sore throat, chest pain, palpitations, nausea, or vomiting. He denies a history of COVID infection and is currently fully vaccinated against COVID. He denies tobacco, alcohol, or recreational drug use. Pt reported marked improvement of his symptoms after Nebulizer treatment in er. CXR showed possible LL pneumonia. Pt was admitted for possible pneumonia and to R/O [place] SOB: Much improved. Possible pneumonia: levaquin, nebs, O2 H/o CHF seems compensated. The report of his last echo from 05/26/2019 was obtained and showed EF ~ 25%. for re echo. Continue with home medication and outpt cardiology follow up. R/O [place]: neg Tro X 2. Mild higher D Dimer: Pt has not been ambulating but his is already on warfarin and his INR is therapeutic. h/o PVD post RT BKA: to follow up with OT as outpt. H/o pacemaker/ ICD. Pt is full code as per pt and his - Discharge Data Discharge Date: 07/06/20 Discharge Disposition: Home, Self-Care 01 Condition: Fair - Referral to Home Health Date of Face to Face Encounter: 07/06/20 Primary Care Physician: PCP None - Patient Summary/Data Consults: Consultations 07/05/20 00:34 OT Evaluation and Treatment [CONS] Routine PT Evaluation and Treatment [CONS] Routine - Patient Instructions Diet: Heart Healthy Diet Fluid Restriction: 1500 mL Activity: As Tolerated Notify Provider of: Fever, Increased Pain, Swelling and Redness, Nausea and/or Vomiting Other/Special Instructions: See your doctor in 1-2 weeks. Return to ER if not better on any change. FOllow up with your doctor about the echo results - Discharge Plan *PRESCRIPTION DRUG MONITORING PROGRAM REVIEWED*: Not Applicable *COPY OF PRESCRIPTION DRUG MONITORING REPORT IN PATIENT PATRICK: Not Applicable Prescriptions/Med Rec: Levofloxacin [Levaquin] 500 mg PO DAILY 7 Days #7 tablet Albuterol [Proventil Neb Soln] 2.5 mg NEB QID PRN #30 neb PRN Reason: shortness of breath/wheezing Home Medications: Home Meds Aspirin [Low Dose Aspirin EC] 81 mg PO Q72H 03/12/14 [History] Cyanocobalamin (Vitamin B-12) [Vitamin B-12] 2,500 mcg SL DAILY 03/12/14 [History] Tamsulosin HCl 0.4 mg PO BEDTIME 03/12/14 [History] atorvaSTATin [Lipitor] 10 mg PO BEDTIME 06/16/14 [History] Warfarin [Coumadin] 5 mg PO .MWF 05/23/17 [History] Sacubitril/Valsartan [Entresto 49 mg-51 mg Tablet] 1 tab PO BID 02/26/20 [History] Acetaminophen 650 mg PO Q6H PRN 07/05/20 [History] Ferrous Sulfate 325 mg PO BID 07/05/20 [History] Finasteride [Proscar] 5 mg PO DAILY 07/05/20 [History] Ipratropium [Atrovent 0.03% Nasal [place]] 2 spray NASBOTH TID 07/05/20 [History] Potassium Chloride [Klor-Con 10] 20 meq PO DAILY 07/05/20 [History] Torsemide 80 mg PO DAILY 07/05/20 [History] Warfarin [Coumadin] 2.5 mg PO .TUTASU 07/05/20 [History] carvediloL [Carvedilol] 12.5 mg PO BID 07/05/20 [History] metFORMIN HCl [Metformin HCl] 1,000 mg PO BID 07/05/20 [History] Acetaminophen [Tylenol] 650 mg PO Q4H PRN tablet 07/06/20 [Rx] Albuterol [Proventil Neb Soln] 2.5 mg NEB QID PRN #30 neb 07/06/20 [Rx] Levofloxacin [Levaquin] 500 mg PO DAILY 7 Days #7 tablet 07/06/20 [Rx] Oxygen Therapy Mode: Nasal Cannula Oxygen Flow Rate (L/min): 2 Patient Handouts: Heart Failure, Self Care, [id number], Albuterol inhalation aerosol, Levofloxacin tablets Referrals: Joesph Rasmussen MD [Physician] - - Discharge Summary/Plan Comment DC Time >30 min.: No - Patient Data Vitals - Most Recent: Last Vital Signs Temp 98.9 F 07/06/20 08:00 Pulse 79 07/06/20 08:00 Resp 18 07/06/20 08:00 BP 110/58 L 07/06/20 08:00 Pulse Ox 96 07/06/20 08:00 Weight - Most Recent: 158 lb 1.6 oz I&O - Last 24 hours: Intake & Output 07/05/20 07/06/20 07/06/20 22:59 06:59 14:59 Intake Total 560 100 Output Total 450 550 Balance 110 -450 Lab Results - Last 24 hrs: Laboratory Results - last 24 hr 07/05/20 07/06/20 07/06/20 Range/Units 11:37 06:10 06:10 PT 21.8 H (9.0-12.0) SEC INR 2.2 H (0.9-1.2) POC Glucose 170 H (83-110) mg/dl Magnesium 1.9 (1.8-2.4) mg/dL Med Orders - Current: Current Medications Acetaminophen (Acetaminophen 325 Mg Tab) 650 mg PO Q4H PRN PRN Reason: Pain (Mild 1-3)/fever Albuterol (Albuterol 0.083% 2.5 Mg/3 Ml Neb Soln) 2.5 mg NEB Q2H PRN PRN Reason: shortness of breath/wheezing Atorvastatin Calcium (Atorvastatin 10 Mg Tab) 10 mg PO BEDTIME [facility] Last Admin: 07/05/20 20:20 Dose: 10 mg Documented by: Docusate Sodium (Docusate Sodium 100 Mg Cap) 100 mg PO BID PRN PRN Reason: Constipation Ferrous Sulfate (Ferrous Sulfate 325 Mg Tab) 325 mg PO BID [facility] Last Admin: 07/06/20 08:28 Dose: 325 mg Documented by: Sacubitril/Valsartan (Entresto) 49 Mg/51 Mg Tab Own Med 1 tab PO BID [facility] Last Admin: 07/06/20 08:29 Dose: 1 tab Documented by: Ondansetron HCl (Ondansetron 4 Mg/2 Ml Sdv) 4 mg IVPUSH Q4H PRN PRN Reason: Nausea/Vomiting Potassium Chloride (Potassium Chloride 10 Meq Tab.Er) 20 meq PO DAILY [facility] Last Admin: 07/06/20 08:27 Dose: 20 meq Documented by: Tamsulosin HCl (Tamsulosin 0.4 Mg Cap.Er) 0.4 mg PO BEDTIME [facility] Last Admin: 07/05/20 20:20 Dose: 0.4 mg Documented by: Torsemide (Torsemide 20 Mg Tab) 80 mg PO DAILY [facility] Last Admin: 07/06/20 08:27 Dose: 80 mg Documented by: Warfarin Sodium (Pharmacy To Dose - Warfarin) 1 dose .XX ASDIRECTED [facility] Warfarin Sodium (Warfarin 5 Mg Tab) 5 mg PO ONETIME ONE Stop: 07/06/20 14:01 Discontinued Medications Albuterol/Ipratropium (Albuterol/Ipratropium 3.0-0.5 Mg/3 Ml Neb Soln) 3 ml NEB ONETIME ONE Stop: 07/04/20 22:06 Last Admin: 07/04/20 22:16 Dose: 3 ml Documented by: Levofloxacin/Dextrose 750 mg/ (Premix) 150 mls @ 100 mls/hr IV ONETIME ONE Stop: 07/05/20 00:49 Last Admin: 07/04/20 23:37 Dose: 100 mls/hr Documented by: Levofloxacin/Dextrose 500 mg/ (Premix) 100 mls @ 100 mls/hr IV Q24H [facility] Last Admin: 07/05/20 03:21 Dose: Not Given Documented by: Warfarin Sodium (Warfarin 5 Mg Tab) 5 mg PO ONETIME ONE Stop: 07/05/20 14:01 Last Admin: 07/05/20 13:10 Dose: 5 mg Documented by:
[2020-07-06] MEDS ORDERED: Warfarin 5 MG Tab PO ONE (14:00)
== END 2020-07-06 09:15 | disposition home or self-care (01) | DRG 195 ==
LOC: DL.ED 20:47 → DL.MS 23:28
PROVIDERS: ADMIT Internal Medicine; ATTEND Internal Medicine
DX: J18.9 Pneumonia, unspecified organism (principal); I13.0 Hypertensive heart and chronic kidney disease with heart failure and stage 1 through stage 4 chronic kidney disease, or unspecified chronic kidney disease; I50.9 Heart failure, unspecified; I11.0 Hypertensive heart disease with heart failure; E11.8 Type 2 diabetes mellitus with unspecified complications; Z89.511 Acquired absence of right leg below knee; D63.1 Anemia in chronic kidney disease; H54.7 Unspecified visual loss; N18.9 Chronic kidney disease, unspecified; E11.9 Type 2 diabetes mellitus without complications; Z95.0 Presence of cardiac pacemaker; Z87.442 Personal history of urinary calculi; E11.22 Type 2 diabetes mellitus with diabetic chronic kidney disease; E78.00 Pure hypercholesterolemia, unspecified; I25.2 Old myocardial infarction; Z95.810 Presence of automatic (implantable) cardiac defibrillator; K44.9 Diaphragmatic hernia without obstruction or gangrene; N40.0 Benign prostatic hyperplasia without lower urinary tract symptoms; Z86.73 Personal history of transient ischemic attack (TIA), and cerebral infarction without residual deficits; E53.8 Deficiency of other specified B group vitamins; Z79.01 Long term (current) use of anticoagulants; Z79.84 Long term (current) use of oral hypoglycemic drugs; Z79.82 Long term (current) use of aspirin; Z79.899 Other long term (current) drug therapy; Z20.822 Contact with and (suspected) exposure to COVID-19
CPT/HCPCS: 36415; 71045; 80053; 82553; 82962; 83605; 83735; 83880; 84484; 85025; 85379; 85610; 85730; 86140; 93005; 93306; 97161-GP; 97165-GO; A9270-GY; J1956; J7620-GY; U0002

== ENCOUNTER 2021-06-13 18:26 | Inpatient (IN) | payer MEDICARE, OTHER ==
[2021-06-13] MEDS ORDERED: Albuterol/Ipratropium 3.0-0.5 MG/3 ML Neb Soln NEB ONE (19:24)
[2021-06-13 19:42] LABS: ANION GAP 10.8 mEq/L (7-13)
[2021-06-13 20:03] LABS: CORONAVIRUS COVID-19 NAA NEGATIVE (NEGATIVE)
[2021-06-13] MEDS ORDERED: Bumetanide 1 MG/4 ML MDV IVPUSH ONE (20:10)
[2021-06-13] MEDS ORDERED: cefTRIAXone 1 GM in Sodium Chloride 0.9% 50 ML IV ONE (20:27)
[2021-06-13] MEDS ORDERED: Polyethylene Glycol 3350 Powder 17 GM Packet PO PRN (21:39)
[2021-06-13] MEDS ORDERED: Acetaminophen 325 MG Tab PO PRN ×2 (21:39→23:08)
[2021-06-13] MEDS ORDERED: Acetaminophen/HYDROcodone 325-10 MG Tab PO PRN (21:39)
[2021-06-13] MEDS ORDERED: Albuterol/Ipratropium 3.0-0.5 MG/3 ML Neb Soln NEB PRN (21:39)
[2021-06-13] MEDS ORDERED: HYDROmorphone 0.5 MG/0.5 ML Syringe IVPUSH PRN (21:39)
[2021-06-13] MEDS ORDERED: Ondansetron 4 MG/2 ML SDV IVPUSH PRN (21:39)
[2021-06-13] MEDS ORDERED: Azithromycin 500 MG in Sodium Chloride 0.9% 250 ML IV ONE (21:46)
[2021-06-13] MEDS ORDERED: Glucagon,Human Recombinant 1 MG Vial IM PRN (21:47)
[2021-06-13] MEDS ORDERED: 50% Dextrose in Water 50 ML Syringe IVPUSH PRN (21:47)
[2021-06-13] MEDS ORDERED: guaiFENesin/Dextromethorphan 100-10 MG/5 ML Soln 5 ML Cup PO PRN (23:01)
[2021-06-13] MEDS ORDERED: Non-Formulary Medication 1 Each (Ipratropium [Atrovent 0.03% Nasal Spray] 30 ML Bottle) NASBOTH PRN (23:08)
[2021-06-13] MEDS ORDERED: Warfarin 5 MG Tab PO ONE (23:30)
[2021-06-14 06:55] LABS: ANION GAP 9.1 mEq/L (7-13)
[2021-06-14] MEDS: Insulin Lispro 100 Units/ML 3 ML Vial SUBCUT SCH ×3 (08:18→16:38)
[2021-06-14] MEDS ORDERED: Azithromycin 500 MG in Sodium Chloride 0.9% 250 ML IV SCH (09:00)
[2021-06-14] MEDS: Cyanocobalamin (Vitamin B12) 1,000 MCG Tab SL SCH (09:29)
[2021-06-14] MEDS: Finasteride 5 MG Tab PO SCH (09:30)
[2021-06-14] MEDS: Aspirin 81 MG Tab.EC PO SCH (09:30)
[2021-06-14] MEDS: Ferrous Sulfate 325 MG Tab PO SCH (09:30)
[2021-06-14] MEDS: Carvedilol 6.25 MG Tab PO SCH ×2 (09:30→20:33)
[2021-06-14] MEDS: Potassium Chloride 10 MEQ Tab.ER PO SCH (09:31)
[2021-06-14] MEDS ORDERED: guaiFENesin 600 MG Tab.ER PO ONE (10:23)
[2021-06-14] MEDS: guaiFENesin 600 MG Tab.ER PO SCH ×2 (11:55→20:33)
[2021-06-14] MEDS: Warfarin 2.5 MG Tab PO SCH (14:22)
[2021-06-14] MEDS: Azithromycin 500 MG in Sodium Chloride 0.9% 250 ML IV SCH (20:32)
[2021-06-14] MEDS: atorvaSTATin 10 MG Tab PO SCH (20:33)
[2021-06-14] MEDS: Tamsulosin 0.4 MG Cap.ER PO SCH (20:33)
[2021-06-15 06:50] LABS: ANION GAP 11.6 mEq/L (7-13)
[2021-06-15] MEDS: Insulin Lispro 100 Units/ML 3 ML Vial SUBCUT SCH ×3 (08:10→16:59)
[2021-06-15] MEDS: guaiFENesin 600 MG Tab.ER PO SCH ×2 (09:17→20:32)
[2021-06-15] MEDS: Finasteride 5 MG Tab PO SCH (09:17)
[2021-06-15] MEDS: Torsemide 20 MG Tab PO SCH (09:18)
[2021-06-15] MEDS: Ferrous Sulfate 325 MG Tab PO SCH (09:18)
[2021-06-15] MEDS: Cyanocobalamin (Vitamin B12) 1,000 MCG Tab SL SCH (09:18)
[2021-06-15] MEDS: Potassium Chloride 10 MEQ Tab.ER PO SCH (09:18)
[2021-06-15] MEDS: Carvedilol 6.25 MG Tab PO SCH ×2 (09:19→20:32)
[2021-06-15] MEDS ORDERED: Acetaminophen/HYDROcodone 325-5 MG Tab PO PRN (11:42)
[2021-06-15] MEDS: Warfarin 2.5 MG Tab PO SCH (14:17)
[2021-06-15] MEDS: VALSARTAN PO SCH ×2 (14:37→20:33)
[2021-06-15] MEDS: SACUBITRIL PO SCH ×2 (14:37→20:33)
[2021-06-15] MEDS: Azithromycin 500 MG in Sodium Chloride 0.9% 250 ML IV SCH (20:30)
[2021-06-15] MEDS: Tamsulosin 0.4 MG Cap.ER PO SCH (20:32)
[2021-06-15] MEDS: atorvaSTATin 10 MG Tab PO SCH (20:32)
[2021-06-16 06:44] LABS: ANION GAP 13.7 mEq/L (7-13)
[2021-06-16] MEDS: Torsemide 20 MG Tab PO SCH (08:30)
[2021-06-16] MEDS: Potassium Chloride 10 MEQ Tab.ER PO SCH (08:30)
[2021-06-16] MEDS: Carvedilol 6.25 MG Tab PO SCH (08:30)
[2021-06-16] MEDS: Ferrous Sulfate 325 MG Tab PO SCH (08:31)
[2021-06-16] MEDS: guaiFENesin 600 MG Tab.ER PO SCH (08:31)
[2021-06-16] MEDS: Cyanocobalamin (Vitamin B12) 1,000 MCG Tab SL SCH (08:31)
[2021-06-16] MEDS: Aspirin 81 MG Tab.EC PO SCH (08:31)
[2021-06-16] MEDS: Finasteride 5 MG Tab PO SCH (08:32)
[2021-06-16 08:33] VITALS: BP 127/58; PULSE 76
[2021-06-16] MEDS: Insulin Lispro 100 Units/ML 3 ML Vial SUBCUT SCH (08:36)
[2021-06-16] MEDS: VALSARTAN PO SCH (08:37)
[2021-06-16] MEDS: SACUBITRIL PO SCH (08:37)
[2021-06-18] MEDS ORDERED: Warfarin 5 MG Tab PO SCH (14:00)
== END 2021-06-16 10:00 | disposition home or self-care (01) | DRG 291 ==
LOC: DL.ED 18:26 → DL.MS 20:53
PROVIDERS: ADMIT Internal Medicine; ATTEND Internal Medicine
DX: I13.0 Hypertensive heart and chronic kidney disease with heart failure and stage 1 through stage 4 chronic kidney disease, or unspecified chronic kidney disease (principal); I50.21 Acute systolic (congestive) heart failure; N17.9 Acute kidney failure, unspecified; E87.1 Hypo-osmolality and hyponatremia; I50.9 Heart failure, unspecified; E11.52 Type 2 diabetes mellitus with diabetic peripheral angiopathy with gangrene; N18.32 Chronic kidney disease, stage 3b; I73.9 Peripheral vascular disease, unspecified; D50.9 Iron deficiency anemia, unspecified; E11.22 Type 2 diabetes mellitus with diabetic chronic kidney disease; E78.5 Hyperlipidemia, unspecified; R79.1 Abnormal coagulation profile; E11.65 Type 2 diabetes mellitus with hyperglycemia; J20.9 Acute bronchitis, unspecified; I25.10 Atherosclerotic heart disease of native coronary artery without angina pectoris; G47.33 Obstructive sleep apnea (adult) (pediatric); Z89.511 Acquired absence of right leg below knee; Z87.19 Personal history of other diseases of the digestive system; Z87.442 Personal history of urinary calculi; Z87.891 Personal history of nicotine dependence; I11.0 Hypertensive heart disease with heart failure; E78.00 Pure hypercholesterolemia, unspecified; Z89.431 Acquired absence of right foot; Z79.4 Long term (current) use of insulin; I25.2 Old myocardial infarction; Z95.0 Presence of cardiac pacemaker; Z95.810 Presence of automatic (implantable) cardiac defibrillator; K44.9 Diaphragmatic hernia without obstruction or gangrene; Z98.42 Cataract extraction status, left eye; Z98.41 Cataract extraction status, right eye; Z90.49 Acquired absence of other specified parts of digestive tract; Z98.890 Other specified postprocedural states; Z90.89 Acquired absence of other organs; N40.0 Benign prostatic hyperplasia without lower urinary tract symptoms; Z86.73 Personal history of transient ischemic attack (TIA), and cerebral infarction without residual deficits; E53.8 Deficiency of other specified B group vitamins; Z79.01 Long term (current) use of anticoagulants; Z79.82 Long term (current) use of aspirin; Z79.899 Other long term (current) drug therapy; Z20.822 Contact with and (suspected) exposure to COVID-19
CPT/HCPCS: 0240U; 36415; 71045; 80048; 80053; 81001; 82947; 83605; 83735; 83880; 84484; 85025; 85610; 85651; 86140; 87040; 87070; 87205; 93005; 93010; 94010; 94640; 94667; 96365; 96375; 99223; 99233; 99238; 99285; 99285-25; A9270-GY; J0456; J0696; J3490; J7050; J7620-GY

== ENCOUNTER 2022-04-29 12:43 | Emergency (ER) | payer MEDICARE, OTHER ==
[2022-04-29 12:58] VITALS: BP 110/66; PULSE 73
== END 2022-04-29 13:51 | disposition home or self-care (01) ==
LOC: DL.ED 12:43
DX: R25.1 Tremor, unspecified (principal); I11.0 Hypertensive heart disease with heart failure; I50.9 Heart failure, unspecified; E78.00 Pure hypercholesterolemia, unspecified; I25.2 Old myocardial infarction; E11.9 Type 2 diabetes mellitus without complications; Z79.899 Other long term (current) drug therapy; Z79.01 Long term (current) use of anticoagulants; Z90.49 Acquired absence of other specified parts of digestive tract; Z87.891 Personal history of nicotine dependence
CPT/HCPCS: 82947; 99282; 99283

== ENCOUNTER 2024-04-27 16:26 | Emergency (ER) | payer MEDICARE, OTHER ==
[2024-04-27 17:04] VITALS: BP 138/70; PULSE 78
[2024-04-27] MEDS: Bacitracin Oint 1 GM U/D Packet TOP ONE (17:04)
[2024-04-27] MEDS: Bacitracin Oint 1 GM U/D Packet ONE (17:25)
== END 2024-04-27 17:39 | disposition home or self-care (01) ==
LOC: DL.ED 16:26
DX: S90.812A Abrasion, left foot, initial encounter (principal); I11.0 Hypertensive heart disease with heart failure; I50.9 Heart failure, unspecified; I25.2 Old myocardial infarction; E11.9 Type 2 diabetes mellitus without complications; Z90.49 Acquired absence of other specified parts of digestive tract; Z79.899 Other long term (current) drug therapy; Z79.01 Long term (current) use of anticoagulants; Z79.890 Hormone replacement therapy; Z79.82 Long term (current) use of aspirin; W18.30XA Fall on same level, unspecified, initial encounter
CPT/HCPCS: 36415; 70450; 71045; 72125; 80053; 83605; 83735; 83880; 84145; 84484; 85025; 85610; 85730; 86140; 90715; 93005; 99283; A9270; J1940; J7040

== ENCOUNTER 2024-05-02 12:49 | Emergency (ER) | payer MEDICARE, OTHER | END 2024-05-02 14:27 | disposition EXP | LOC: DL.ED 12:49 | DX: I46.9 Cardiac arrest, cause unspecified (principal); I12.0 Hypertensive chronic kidney disease with stage 5 chronic kidney disease or end stage renal disease; I50.9 Heart failure, unspecified; E78.00 Pure hypercholesterolemia, unspecified; I25.2 Old myocardial infarction; E11.9 Type 2 diabetes mellitus without complications; Z86.73 Personal history of transient ischemic attack (TIA), and cerebral infarction without residual deficits; Z95.0 Presence of cardiac pacemaker; Z79.899 Other long term (current) drug therapy; Z79.01 Long term (current) use of anticoagulants; Z79.82 Long term (current) use of aspirin; Z79.84 Long term (current) use of oral hypoglycemic drugs | CPT/HCPCS: 31500; 92950; 99285; 99285-25 ==